=== PATIENT | female | born 1935 | race Caucasian/White ===

== ENCOUNTER → 2017-07-15 10:22 | Outpatient (CLI) | payer MEDICARE, SELFPAY ==
[2017-06-04 11:12] VITALS: BMI 34.2
[2017-06-04 12:47] VITALS: BP 158/60
--- NOTE | 2017-07-15 10:24 | RAD_ITS ---
STUDY: X-RAY - LEFT WRIST REASON FOR EXAM: Female, 81 years old. Follow-up for radial fracture. TECHNIQUE: 3 view(s) of the wrist were obtained. COMPARISON: Comparison is made with prior examination dated June 16, 2017. FINDINGS: Healing comminuted fracture of the distal radial metaphysis with extension to the minimal residual dorsal angulation. Avulsion fracture of the ulnar styloid. Normal radiocarpal articulation. Normal distal radioulnar articulation. Normal carpal bones. Normal carpal articulations. There is degenerative arthrosis of the carpometacarpal articulation of the thumb. Normal second through fifth carpometacarpal articulations. Normal visualized metacarpal bones. The soft tissue structures are unremarkable. RAD/Wrist min 3 Views IMPRESSION: Stable examination. Electronically Signed: Magno Eason MD at 14:16 EST Tel [phone], Service support ,
== END ==
PROVIDERS: Family Provider Family Medicine; PCP Family Medicine; Visit Provider Orthopaedic Surgery
DX: S52.602A Unspecified fracture of lower end of left ulna, initial encounter for closed fracture (principal); S52.502A Unspecified fracture of the lower end of left radius, initial encounter for closed fracture; X58.XXXA Exposure to other specified factors, initial encounter
CPT/HCPCS: 73110

== ENCOUNTER → 2017-07-30 14:02 | Outpatient (CLI) | payer MEDICARE, SELFPAY ==
--- NOTE | 2017-07-30 14:04 | RAD_ITS ---
STUDY: X-RAY - LEFT WRIST REASON FOR EXAM: Female, 81 years old. Fracture TECHNIQUE: 3 view(s) of the wrist were obtained. COMPARISON: X-ray 07/15/2017 FINDINGS: Cast is removed. There is healing fracture at the distal radius. This fracture deformity of the ulnar styloid. 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 Osteopenia. No osseous destruction. RAD/Wrist min 3 Views IMPRESSION: Interval cast removal Healing distal radius fracture Electronically Signed: Danie Estrella MD at 11:11 EST Tel , Service support ,
== END ==
PROVIDERS: Family Provider Family Medicine; PCP Family Medicine; Visit Provider Orthopaedic Surgery
DX: S52.502A Unspecified fracture of the lower end of left radius, initial encounter for closed fracture (principal); S52.602A Unspecified fracture of lower end of left ulna, initial encounter for closed fracture; X58.XXXA Exposure to other specified factors, initial encounter
CPT/HCPCS: 73110

== ENCOUNTER → 2017-08-04 11:20 | Outpatient (CLI) | payer MEDICARE, SELFPAY ==
--- NOTE | 2017-08-04 11:24 | HPBD_ITS ---
STUDY: DUAL ENERGY X-RAY ABSORPTIOMETRY / DXA REASON FOR EXAM: Female, 81 years old. The patient is postmenopausal. Loss of height of 3 images. TECHNIQUE: Bone Mineral Density (BMD) measurements of lumbar spine and bilateral hips were obtained. COMPARISON: Comparison is made with prior study dated February 26, 2015. FINDINGS: Lumbar Spine (L1-L4): g/cm2 (1.360) / T-score (1.3) / Z-score (3.2) Findings are suggestive of normal bone density with a low fracture risk. Left Femur Total: g/cm2 (0.842) / T-score (-1.3) / Z-score (0.8) Left Femoral Neck: g/cm2 (0.700) / T-score (-2.4) / Z-score (-0.2) Right Femur Total: g/cm2 (0.823) / T-score (-1.5) / Z-score (0.6) Right Femoral Neck: g/cm2 (0.733) / T-score (-2.2) / Z-score (0.0) The T-Scores on the most recent prior examination were: Lumbar Spine (L1-L4): There has been improvement of bone density since the previous examination. Left Femur Total: which represents a worsening of 3.6%. Right Femur Total: which represents a worsening of 6.4%. HPBD/Dexa Bone Density Study (HP) IMPRESSION: The patient is considered osteopenic as outlined below according to World Abiel Organization (WHO) criteria with a moderate fracture risk. There has been worsening of bone density since the previous examination. Reference Information: The T-score is the number of standard deviations above or below the standard which is normal for young adults at their peak bone mineral density. The World Health Organization (WHO) interprets the T-scores as follows: Above -1 Normal bone density Between -1 and -2.5 Osteopenia Equal to / or below -2.5 Osteoporosis As a practical clinical guideline, osteopenia may be graded as follows: Mild -1 through -1.5 Moderate -1.6 through -2.0 Severe -2.1 through -2.4 The Z-score is the number of standard deviations above or below age-matched controls. A Z-score of less than -1.5 would be considered abnormal. References: 1. NIH Osteoporosis and Related Bone Diseases http://www.osteo.org 2. International Society for Clinical Densitometry http://www.iscd.org 3. National Osteoporosis Foundation http://www.nof.org Electronically Signed: Magno Eason MD at 8:33 EST Tel [phone], Service support ,
== END ==
PROVIDERS: Family Provider Family Medicine; PCP Family Medicine; Visit Provider Family Medicine
DX: M80.00XS Age-related osteoporosis with current pathological fracture, unspecified site, sequela (principal); Z78.0 Asymptomatic menopausal state
CPT/HCPCS: 77080

== ENCOUNTER 2017-09-28 14:00 | Outpatient (RCR) | payer MEDICARE, SELFPAY ==
--- NOTE | 2017-09-28 14:54 | HP.OTDCSUM_ITS ---
HP - OT D/C Summary It has been my pleasure to treat YULIA AKERS under orders from Mark Sandoval DO, for the diagnosis of Left wrist Distal radius fx. for a total of 5 visit(s). Please see the following information for a summary of their discharge status. - Objective Objective/Function: pt demo a increase in left manager trade strength to 35# a increase in from 20# left wist ROM 65/45 pt demo left forearm supination- - Goals Patient Goals: Regain Mobility, Regain Strength, Decrease Pain, Use Hand/Wrist/ Arm Normally Again Goal:: pt will demo a increase in left manager trade strength to 35# or greater to increase pts ind. with BADLS and IADLS by d/c Goal:: Pt will demo a increase in left wrist ROM by 15 degrees to increase pts ind. with BADLS and IADLS by d/c. pt will demo a increase in left forarm supination to 60 degress for pt to perform BADLS at a ind. level by d/c Goal:: pt will report pain no greater than 1/10 with use of left hand with BADLS and IADLS by d/c - Plan Plan: D/C - D/C Information Discharge Comments: pt was seen for 5 visits following a left distal radius fx- ORIF- pt has demo a increase in left wrist ROM to WFL and a increase in functional strength- pt is now IND with all BADLS and IADLS at this time. pt is to cont with HEP and cont with silver sneakers at . If there are questions or concerns regarding this patient's occupational therapy , please fell free to call me at [phone]. Thank you for the referral of this patient. Sincerely, April Fischer, OTR/L, CHT
--- NOTE | 2017-09-28 14:54 | HP.OTEVAL_ITS ---
Patient's Visit Information YULIA AKERS is a 81 year old F, referred to Occupational Therapy by Mark Sandoval DO, with a diagnosis of Left wrist Distal radius fx.. Date of Evaluation: Occupational Therapist: April Fischer, DELTAR/Edinson, CHT - Subjective Subjective: Pt states she is not sure what happened but while she was standing by her dinning table she fell and broke her left wrist- pt went to the ER and was found to be a left distal radius fx. pt is right handed- pt states she was casted for 4 weeks. pt states she is getting better but she is having pain at the base of her fingers - Pain left wrist 0 Pain Intensity Range: 0, 3 - ROM Forearm: RIGHT sup 65 LEFT Nutral Wrist: RIGHT 55/45 LEFT 60/35 - Strength Utility Worker Film Processing: right 45# left 20# Lateral Pinch: right 8# left 4# Tripod Pinch: rigth 4# left unable left thumb pain - Hand/Wrist Evaluation Total Score of Pain & Functional Sections: 5 - Goals Goal:: pt will demo a increase in left acetone recovery worker strength to 35# or greater to increase pts ind. with BADLS and IADLS by d/c Goal:: Pt will demo a increase in left wrist ROM by 15 degrees to increase pts ind. with BADLS and IADLS by d/c. pt will demo a increase in left forarm supination to 60 degress for pt to perform BADLS at a ind. level by d/c Goal:: pt will report pain no greater than 1/10 with use of left hand with BADLS and IADLS by d/c - Rehabilitation General Assessment: pt demo with a decreased left wrist functional ROM and limited left forearm supination- pt demo weak left acetone recovery worker decreasing pts ind. with BADLs and IADLs. Rehabilitation Potential: Good - Anticipated Interventions Anticipated Interventions: A/AAROM/PROM, Strengthening, Triggerpoint Release, Modalities - Visit Plan Frequency: 1-2x /Week Duration: 4 Weeks General Plan: pt will initiate OT sessions 2xweek for 4 weeks to increase her left wrist and left forearm supination - and then progress pt to PRE to return her to a PLOF TEXT: Thank you for the opportunity to evaluate your patient. For Medicare and Medicare HMO plans, please review the plan of care and approve it. It will need to be FAXED BACK to us at [phone] for Medicare purposes. Please let me know if there are questions or concerns regarding this plan of care. Physician Signature: Date:
== END 2017-09-28 19:00 | disposition home or self-care (01) ==
LOC: OT 14:00
PROVIDERS: Family Provider Family Medicine; PCP Family Medicine; Visit Provider Orthopaedic Surgery
DX: S52.502D Unspecified fracture of the lower end of left radius, subsequent encounter for closed fracture with routine healing (principal)
CPT/HCPCS: 97110; 97140; 97166; 97168

== ENCOUNTER → 2017-10-15 09:49 | Outpatient (CLI) | payer MEDICARE, SELFPAY ==
--- NOTE | 2017-10-15 09:51 | RAD_ITS ---
STUDY: X-RAY - RIGHT KNEE REASON FOR EXAM: Female, 81 years old. Postop knee replacement TECHNIQUE: 4 view(s) of the knee. COMPARISON: None. FINDINGS: Normal visualized distal femur. Normal visualized proximal tibia and fibula. Normal proximal tibiofibular articulation. There is no demonstrated fracture. Satisfactory appearance of total knee arthroplasty, with normal femoral and tibial components. No evidence for postoperative complication. There has been resurfacing of the patella. The soft tissue structures are unremarkable. RAD/Knee 4 or More Views IMPRESSION: No acute abnormality. Satisfactory appearance of a total knee arthroplasty. Electronically Signed: Sandip Shine MD at 17:03 EDT , Service support ,
== END ==
PROVIDERS: Family Provider Family Medicine; PCP Family Medicine; Visit Provider Orthopaedic Surgery
DX: M17.11 Unilateral primary osteoarthritis, right knee (principal)
CPT/HCPCS: 73564

== ENCOUNTER → 2018-03-02 09:49 | Outpatient (CLI) | payer MEDICARE, SELFPAY ==
--- NOTE | 2018-03-02 09:52 | BI_ITS ---
MAMMOGRAPHY - BILATERAL SCREENING REASON FOR EXAM: Female, 82 years old. Routine annual screening examination. PERTINENT HISTORY: Personal history of breast cancer. Prior left lumpectomy. Prior left stereotactic breast biopsy. TECHNIQUE: Digital bilateral breast holly (3D mammographic acquisition) in the CC and MLO projections. 2-D mediolateral oblique (MLO) and craniocaudad (CC) views of both breasts were obtained. CAD: Full Field Digital Mammography with Computer Added Detection was performed. COMPARISON: Comparison is made with prior study dated March 01, 2017 and February 28, 2016. FINDINGS: Breast Composition: There are scattered areas of fibroglandular density. There are no dominant masses or suspicious calcifications. The patient is status post left lumpectomy with resultant postoperative architectural distortion in the superior lateral retroareolar region of the left breast. Surgical clips are seen in the left axilla. There now is evidence of a 1.9 cm dense lymph node in the right axillary region. Clinical correlation is recommended. No other significant abnormalities are identified. BI/SCREENING MAMM (CAD), BILAT IMPRESSION: Stable bilateral screening mammogram. Yearly follow-up mammogram recommended. (A) ASSESSMENT CATEGORY: BIRADS Category 2: Benign. A letter regarding these results will be sent to the patient by the facility within 30 days. Approximately 10% of breast cancers are not detected by mammography. A normal mammogram should not delay biopsy of a clinically suspicious abnormality. [id number] Electronically Signed: Magno Eason MD at 10:59 EDT Tel [phone], Service support ,
== END ==
PROVIDERS: Family Provider Family Medicine; PCP Family Medicine; Visit Provider Nurse Practitioner
DX: Z12.31 Encounter for screening mammogram for malignant neoplasm of breast (principal); D05.12 Intraductal carcinoma in situ of left breast
CPT/HCPCS: 77063; 77067

== ENCOUNTER 2018-06-01 15:45 | Emergency (ER) | payer MEDICARE, SELFPAY ==
[2018-06-01 15:47] VITALS: BP 159/79; PULSE 83; RESP 18; TEMP 36.3; O2SAT 99; BMI 40.7
--- NOTE | 2018-06-01 16:23 | ED.VISSUMM ---
- ER Visit Summary Date of Service: 06/01/18 Chief Complaint: Nosebleed History of Present Illness: The patient is a 82 F presents for 1 hour of nosebleed. Patient had a similar episode 4 days ago, with bleeding from her right nostril that resolved spontaneously. Onset was after she blew her nose. Patient blew her nose this afternoon began having bleeding again. Any history of bleeding disorder or being on blood thinners, including aspirin. No other trauma other than blowing her nose. Patient denies nausea. She does have some blood in the oropharynx that requires spitting out. Physical Examination: Vital signs: afebrile, hemodynamically stable, no hypoxia on room air General: well nourished, well developed, in no distress Skin: warm, dry, no rash, no pallor HEENT: normocephalic and atraumatic; PERRL, EOMI, moist mucous membranes, dried blood around the mouth, small amount on the hard palate, no active bleeding in the posterior oropharynx, dried blood noted around the right external naris, no active bleeding in the internal nares, including the septum, limited range of motion of the neck secondary to chronic medical condition Cardiovascular: regular rate and rhythm Respiratory: No increased work of breathing MSK: Moves all extremities, no deformities, normal strength Neuro: Awake and alert, oriented ?4. No facial droop, sensation and motor function intact and symmetric Test Results: None indicated Emergency Department Course and Treatment: Patient had no bleeding on initial examination. While talking to her, she had a very brief single spurt of blood come out of the right naris, with no source noted on reexamination. She then had another very small amount of blood drain out of the nose and also into the oropharynx, which she spit out. Patient still had no active bleeding noted in the anterior naris, including Keisselbachs plexus, however there was no bleeding at all noted in the posterior region of the anterior nasal septum. Patient had no further bleeding after a long period of observation, however family was concerned that the bleeding would occur again. The patient lives alone. We discussed the possibilities of observation versus packing. They opted for packing. Patient's right naris was once again evaluated, and there was some diffuse hyperemia with no single source of bleeding identified. Merocel was placed after instillation of afrin and zay's solution in right naris. Patient was observed and had no further bleeding. She is to have the packing removed in 2-3 days. She was placed on Augmentin for prophylaxis since she is diabetic. She is to return if bleeding resumes. Discharged home in stable condition. Treatment Plan: [] Disposition: [] Impression: Right epistaxis, status post nasal packing This note was generated with [employer] dictation software. It may contain incorrect words, spelling, and punctuation that were not noted in review of the chart prior to signing ED Disposition - Plan for ED Patient: Disposition: Home or Assisted Living Chief Complaint: Nosebleed Instructions: Nosebleed Prescriptions: Amoxicillin/Potassium Clav [Augmentin 875-125 Tablet] 1 tab PO BID #10 tab Referrals: Kasi Black III, MD [Primary Care Provider] - 2 Days Brent Merrill MD [STAFF PHYSICIAN] - 2 Days for wound check Additional Instructions: Follow-up with your doctor, an ENT specialist, or return to the emergency department for reevaluation and removal of the packing in 2-3 days. You are unable to get an appointment in 2-3 days and do not return to the emergency department. Gently remove the packing by herself in 3 days. If at any point you have return of the bleeding you cannot control with pressure to the nostrils after 20 minutes, return to the emergency department for another evaluation. Do not blow your nose, rub your nose, put anything up your nose, or bend over with your head below your waist to prevent increased risk of rebleeding. Take the antibiotic to help prevent infection. If you have any worsening of your condition or any new concerning symptoms, please return immediately to the emergency department for another evaluation.
--- NOTE | 2018-06-01 18:50 | ED.DEP ---
ED Disposition - Plan for ED Patient: Disposition: Home or Assisted Living Chief Complaint: Nosebleed Instructions: Nosebleed Prescriptions: Amoxicillin/Potassium Clav [Augmentin 875-125 Tablet] 1 tab PO BID #10 tab Referrals: Kasi Black III, MD [Primary Care Provider] - 2 Days Brent Merrill MD [STAFF PHYSICIAN] - 2 Days for wound check Additional Instructions: Follow-up with your doctor, an ENT specialist, or return to the emergency department for reevaluation and removal of the packing in 2-3 days. You are unable to get an appointment in 2-3 days and do not return to the emergency department. Gently remove the packing by herself in 3 days. If at any point you have return of the bleeding you cannot control with pressure to the nostrils after 20 minutes, return to the emergency department for another evaluation. Do not blow your nose, rub your nose, put anything up your nose, or bend over with your head below your waist to prevent increased risk of rebleeding. Take the antibiotic to help prevent infection. If you have any worsening of your condition or any new concerning symptoms, please return immediately to the emergency department for another evaluation.
[2018-06-01] MEDS: Oxymetazoline 0.05% 1 SPRAY SPRAY.BTL NASAL (18:55)
[2018-06-01] MEDS: Mixture 30 ML Bottle 5 ML TOPICAL (18:56)
== END 2018-06-01 19:06 | disposition home or self-care (01) ==
PROVIDERS: Emergency Provider Emergency Medicine; Family Provider Family Medicine; PCP Family Medicine
DX: R04.0 Epistaxis (principal)
CPT/HCPCS: 30901; 99283; J7030; A4216

== ENCOUNTER 2018-12-30 13:00 | Outpatient (RCR) | payer MEDICARE, SELFPAY ==
--- NOTE | 2018-10-06 13:15 | HP.PTEVAL_ITS ---
Patient's Visit Information YULIA AKERS is a 82 year old F referred to Physical Therapy by Kasi Black III, MD with a diagnosis of neck pain. Date of Evaluation: 10/06/18 Physical Therapist: Codey Adrian PT, ATC - Visit Plan Frequency: 2x /Week Duration: 4 Weeks Plan: Postural edu, PROM/mobs to C/s, DTR, manual traction, scap stab ex's, UBE, and HEP - Subjective Findings: Pt reports her neck has been sore for several months. Pt reports she had been seeing a chiropractor over this time period, but she wasnt really getting any better. Pt reports no sleep difficulty secondary to pain. Pt reports no tingling or numbness in her UE's at this time. Pt reports she knows she has bad posture, but she feels better when her head is facing downwards. Pt reports she has had recent xrays from her chiropractor, but she cant remember what the results were. Pt reports she is unable to drove a car right now secondary to not being able to rotate her head to the right or the left side. pt reports she has been getting a weekly message for her pain. 0/10 pain currently, 5/10 when she attempts to look straight ahead. - Pain neck Pain Intensity (Out of 10): 0 Pain Intensity Range: 5 - Objective Neuro: B UE sensation is WNL to light touch. B bicepital reflex= 2/3. MMT: B UE's are grossly rated at 5/5 throughout. ROM: Pt is moderately limited in all motions with the exception of extension and retraction which are severely limited. Special tests: pos distraction test. Palpation: significant guarding throughout c/s this date - Goals Goal 1:: Decrease c/s pain x 50% to aid with IADL's Goal Time Frame: 4-6 Weeks Goal 2:: Increase cervical spine ext ROM x 1 grade to aid with ambulation Goal Time Frame: 4-6 Weeks Goal 3:: Decrease guarding in C/S x 1 grade to aid with decreasing pain Goal Time Frame: 4-6 Weeks Goal 4:: I with HEP Goal Time Frame: 4-6 Weeks - Rehabilitation Potential Physical Therapy Diagnosis: pt has cervical spine pain, limited ROM, and poor posture secondary to deg changes in her c/s Rehabilitation Potential: Good - Anticipated Interventions Patient/Client Instruction: Educate patient on: Condition, Plan of Care For the Purpose of:: To improve self management Therapeutic Exercise to Include: Strength training, Postural training, Flexibilty training, Passive ROM, Active ROM, Scapular Strength/Stabilization For the Purpose of:: To decrease pain, To increase ROM, To improve muscle performance and motor function Thermo therapy (hot pack): Yes Ultrasound (thermal/non thermal): Yes For the Purpose of:: To decrease pain Thank you for the opportunity to evaluate your patient. For Medicare and Medicare HMO plans, please review the plan of care and approve it. It will need to be FAXED BACK to us at [phone] for Medicare purposes. For Medicare only, by signing this I certify the plan of care. Please let me know if there are questions or concerns regarding this plan of care. Physician Signature: Date:_
--- NOTE | 2018-11-15 11:16 | HP.PTREVAL ---
Kasi Black III, MD, It has been my pleasure to treat YULIA AKERS over the last 10 visits for neck pain. Please see the progress note below for an update on the physical therapy plan of care! Subjective: Neck pain is about the same from having to hold her head up Objective/Function: Pain ranges from 2-3/10. Ext ROM has improved to neutral spine posture. Guarding has imporved minimally at this time. Pt is progressing well toward Rx goals Plan Plan: Continue with scap stab ex's, UBE, and HEP Goals Goal 1:: Decrease c/s pain x 50% to aid with IADL's Goal Time Frame: 4-6 Weeks Goal Progress: Progressing Goal 2:: Increase cervical spine ext ROM x 1 grade to aid with ambulation Goal Time Frame: 4-6 Weeks Goal Progress: Progressing Goal 3:: Decrease guarding in C/S x 1 grade to aid with decreasing pain Goal Time Frame: 4-6 Weeks Goal Progress: Progressing Goal 4:: I with HEP Goal Time Frame: 4-6 Weeks Goal Progress: Progressing Anticipated Interventions Patient/Client Instruction: Educate patient on: Condition, Plan of Care For the Purpose of:: To improve self management Therapeutic Exercise to Include: Strength training, Postural training, Flexibilty training, Passive ROM, Active ROM, Scapular Strength/Stabilization For the Purpose of:: To decrease pain, To increase ROM, To improve muscle performance and motor function Thermo therapy (hot pack): Yes Ultrasound (thermal/non thermal): Yes For the Purpose of:: To decrease pain Please do not hesitate to contact me at [phone] by phone or if you have questions or concerns regarding this new plan of care! Sincerely, Codey Adrian, PT, ATC
--- NOTE | 2018-12-30 14:00 | HP.PTDCSUM ---
HP - PT D/C Summary It has been my pleasure to treat YULIA AKERS under orders from Kasi Black III, MD, for the diagnosis of neck pain for a total of 17 visit(s). Discharge Date: Please see the following information for a summary of their discharge status. - Subjective Subjective: Pt reports minimal shoulder pain this date - Pain neck Pain Intensity (Out of 10): 2 - Overall Improvement % Improvement: 30 - Objective Objective/Function: cervical spine ROM is relatively unchanged. Pain has decreased overall /10. Pt is I with HEP - Goals Goal 1:: Decrease c/s pain x 50% to aid with IADL's Goal Progress: Progressing Goal 2:: Increase cervical spine ext ROM x 1 grade to aid with ambulation Goal Progress: Progressing Goal 3:: Decrease guarding in C/S x 1 grade to aid with decreasing pain Goal Progress: Not Progressing Goal 4:: I with HEP Goal Progress: Goal Met - Plan Plan: Discontinue to HEP - D/C Information If there are questions or concerns regarding this patient's physical therapy, please feel free to call me at [phone]. Thank you for the referral of this patient. Sincerely, Codey Adrian, PT, ATC
== END 2018-12-30 15:23 | disposition home or self-care (01) ==
LOC: PT 13:00
PROVIDERS: Family Provider Family Medicine; PCP Family Medicine; Visit Provider Family Medicine
DX: M47.812 Spondylosis without myelopathy or radiculopathy, cervical region (principal); M40.202 Unspecified kyphosis, cervical region
CPT/HCPCS: 97110; 97140; 97161; 97530

== ENCOUNTER 2019-02-06 10:03 | Observation (INO) | payer MEDICARE, SELFPAY ==
[2019-02-06 10:04] VITALS: BP 151/67; PULSE 68; RESP 16; TEMP 36.6; O2SAT 96; BMI 31.8
--- NOTE | 2019-02-06 10:40 | ED.VISSUMM ---
- ER Visit Summary Date of Service: 02/06/19 Chief Complaint: Leg swelling. History of Present Illness: The patient is a 83 F history of chronic leg swelling, diet-controlled diabetes, osteoarthritis and anemia. Patient had a recent fall so stopped taking her Lasix which controlled her chronic leg swelling. She did not want to take the Lasix to the mid to go the bathroom and she was scared to keep walking the bathroom to have more falls. She developed more swelling in her legs and blistering of the skin with skin breakdown. They were concerned there was an infection she was seen at the [facility] urgent care and started on Keflex last week. She denies any fever or chills. Family thinks that she needs to be placed in a nursing facility. Physical Examination: Female no acute distress. Vital signs are stable and afebrile. H EENT exam unremarkable. Neck nontender. Lungs are clear to auscultation bilaterally. Heart regular rhythm no murmur. Abdomen is soft and nontender. Extremities moves all 4. Neurovascular intact. Both lower extremities have plus edema. She has vesicles on the skin they broken down. There is minimal redness on the right anterior lower leg. The posterior left calf has some breakdown the skin. But no infection. Both feet are neurovascular intact with dorsi plantarflexion. Touch sensation and pulses. Neurologically he is awake and alert. Test Results: CBC shows no acute abnormality. Hemoglobin 13. White count of 8. Chemistries show potassium of 2.7. Normal creatinine and gap. Emergency Department Course and Treatment: Treated with oral potassium Treatment Plan: Patient will be admitted for failure to thrive. Already spoken to the hospitalist. Disposition: Admission Impression: Failure to thrive Acute on chronic lower extremity edema Hypokalemia This note was generated with [employer] dictation software. It may contain incorrect words, spelling, and punctuation that were not noted in review of the chart prior to signing ED Disposition - Plan for ED Patient: Referrals: Kasi Black III, MD [Primary Care Provider] -
[2019-02-06 11:21] LABS: Absolute Lymphocyte Count 1.38 X10^3/uL (0.83-4.51); Absolute Neutrophil Count 5.9 X10^3/uL (2.0-7.7); Basophil# 0.04 X10^3/uL; Basophil% 0.5 % (0-1); Eosinophil# 0.37 X10^3/uL; Eosinophils% 4.3 % (0-5); Hematocrit 39.7 % (37-47); Hemoglobin 13.8 g/dL (12.0-15.0); Lymphocyte # 1.38 X10^3/ul (4.0); Lymphocyte % 16.1 % (19-41); Mean Corp Hgb Conc 34.8 g/dL (32-36); Mean Corpuscular Hgb 34.2 pg (27.0-32.0); Mean Corpuscular Volume 98.3 fL (81-99); Mean Platelet Vol. 11.4 fl (6.2-12.0); Monocyte# 0.86 X10^3/uL; NRBC Flagged by Analyzer 0 % (0-5); Neutrophil # 5.87 X10^3/uL (2.7-7.7); Neutrophil % 68.6 % (47-70); Platelet Count 177 K/mm3 (150-450); RBC Distribution Width CV 12.7 % (11.6-14.6); RBC Distribution Width SD 45.9 fl (35.1-43.9); Red Blood Count 4.04 M/mm3 (4.2-5.4); White Blood Count 8.6 K/mm3 (4.4-11.0)
[2019-02-06 11:38] LABS: Anion Gap 6 (5-15); BUN 19 mg/dL (7-18); BUN/Creat Ratio 18.1 RATIO (10-20); Chloride 103 mmol/L (98-107); Creatinine, Serum 1.05 mg/dL (0.55-1.02); EST Glomerular Filtration Rate 53 mL/min (>60); Est Glom Filt Rate - Afr Amer 64 mL/min (>60); Estimated Creatinine Clearance 33.58 ml/min; Glucose 256 mg/dL (74-106); Potassium 2.7 mmol/L (3.5-5.1); Sodium Level 143 mmol/L (136-145)
[2019-02-06 12:23] VITALS: BP 153/66; PULSE 63; PULSE 66; RESP 16; O2SAT 97
[2019-02-06 13:38] VITALS: BMI 33.1
[2019-02-06 13:39] VITALS: BP 132/58; PULSE 56; RESP 16; TEMP 37.1; O2SAT 98
[2019-02-06] MEDS: Furosemide 20 MG/2 ML VIAL IV ×2 (15:53→22:35)
[2019-02-06] MEDS: 0.9% NaCl Peripheral Flush Adult/Peds IV ×2 (16:00→22:35)
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
[2019-02-06 16:50] LABS: Bedside Glucose 188 mg/dL (70-110)
[2019-02-06] MEDS: Glucerna Shake 120 ML LIQUID PO ×2 (17:22→22:35)
[2019-02-06] MEDS: Insulin Lispro 100 UNIT/ML INSULN.PEN SC ×2 (17:22→22:35)
[2019-02-06 19:59] VITALS: BP 146/60; PULSE 68; RESP 18; TEMP 36.9; O2SAT 94
--- NOTE | 2019-02-06 20:20 | NURSING ---
Pt's brother, Gamal Prabhakar, at desk wanting to address some concerns about pt's home situation and possibility for placement. Pt lives home alone and sits in her recliner most of the time, attempts to get to the restroom when she can, but typically is incontinent. Pt has macular degeneration making it difficult for her to prepare meals for herself. Per Mr. Prabhakar, pt has memory issues. Pt's brother wondering if pt could be placed somewhere to assist with ADL's. Made brother aware that the social workers and case specialist will be working with pt and family addressing these concerns.
[2019-02-06] MEDS: Acetaminophen 325 MG Tablet 650 MG PO (22:35)
[2019-02-06 22:46] LABS: Bedside Glucose 198 mg/dL (70-110)
[2019-02-06] MEDS: Donepezil HCl 5 MG Tablet PO (22:57)
[2019-02-07 02:00] VITALS: BP 128/60; PULSE 66; RESP 16; TEMP 36.8; O2SAT 93
[2019-02-07 06:06] LABS: Anion Gap 7 (5-15); BUN 14 mg/dL (7-18); BUN/Creat Ratio 14.5 RATIO (10-20); Calcium,Total 9.1 mg/dL (8.5-10.1); Chloride 103 mmol/L (98-107); Creatinine, Serum 0.97 mg/dL (0.55-1.02); EST Glomerular Filtration Rate 59 mL/min (>60); Est Glom Filt Rate - Afr Amer 71 mL/min (>60); Estimated Creatinine Clearance 34.76 ml/min; Glucose 201 mg/dL (74-106); Potassium 2.9 mmol/L (3.5-5.1); Sodium Level 145 mmol/L (136-145)
[2019-02-07] MEDS: Insulin Lispro 100 UNIT/ML INSULN.PEN SC ×4 (06:46→22:24)
[2019-02-07] MEDS: Furosemide 20 MG/2 ML VIAL IV ×3 (06:46→22:25)
[2019-02-07] MEDS: 0.9% NaCl Peripheral Flush Adult/Peds IV ×2 (06:47→20:07)
[2019-02-07 07:05] LABS: Bedside Glucose 202 mg/dL (70-110)
[2019-02-07 07:47] VITALS: BP 140/69; PULSE 62; RESP 16; TEMP 37.1; O2SAT 92
--- NOTE | 2019-02-07 08:47 | NURSING ---
wound photo: right lower leg
--- NOTE | 2019-02-07 08:48 | NURSING ---
wound photo: left posterolateral lower leg
--- NOTE | 2019-02-07 10:09 | OT ---
SLOW TO RESPOND, QUESTIONABLE COMPREHENSION, WILL NEED REINFORCED
[2019-02-07] MEDS: Propranolol LA 80 MG Capsule PO (10:21)
[2019-02-07] MEDS: Citalopram 20 MG Tablet PO (10:22)
[2019-02-07] MEDS: Ramipril 10 MG Capsule PO (10:22)
[2019-02-07] MEDS: amLODIPine 5 MG Tablet PO (10:22)
[2019-02-07] MEDS: Glucerna Shake 120 ML LIQUID PO ×4 (10:24→22:24)
[2019-02-07 11:41] LABS: Bedside Glucose 212 mg/dL (70-110)
--- NOTE | 2019-02-07 13:46 | CASEMGMT ---
Social Work Assessment Referral Date: 02/07/2019 Date of Assessment: 02/07/2019 Reason for consult: SNF placement Informant: Personal Status: SW met with pt to complete initial assessment. Pt is alert and orientated x3. Pt states that she lives alone in a two story home with one floor set up. Pt states that she was previously independent with ALDs. DME include cane and walker and pharmacy is [facility]. Pt's PCP is Dr. Black. Substance Abuse Hx: Pt denied Mental Health Hx: Pt states that she had light depression when her . Pt states that she was on medications for a little bit after her passed but denied currently talking medications. SW offered support to pt. Pt states that her depression is now managed and denied wanting counseling resources. SW informed pt that PT/OT are recommending SNF for pt. Pt states that she has been to [facility] to visit her and would like a referral sent to [facility]. SW provided pt with list of SNF that accept pt's insurance. Pt still states she would like referral sent to [facility]. SW explained referral process and that pt will need pre-cert. Pt states understanding. SW faxed referral to [facility]. Plan: [facility] pending acceptance and pre-cert Naila Bryan REFUELING RAMP ATTENDANT, SAP BW ARCHITECT
[2019-02-07 14:29] VITALS: BP 130/53; PULSE 70; RESP 16; TEMP 36.7; O2SAT 92
--- NOTE | 2019-02-07 16:18 | CASEMGMT ---
CJ LEÓN completed and reviewed BERNAL form with patient. Patient voiced understanding and all questions were answered. CJ LEÓN provided copy of BERNAL for to patient. Original signed BERNAL form filed in chart.
[2019-02-07 16:36] LABS: Bedside Glucose 207 mg/dL (70-110)
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
[2019-02-07] MEDS: Acetaminophen 325 MG Tablet 650 MG PO (20:07)
[2019-02-07 20:20] VITALS: BP 146/55; PULSE 65; RESP 18; TEMP 36.4; O2SAT 96
[2019-02-07] MEDS: Donepezil HCl 5 MG Tablet PO (22:24)
[2019-02-07 22:36] LABS: Bedside Glucose 183 mg/dL (70-110)
[2019-02-08 02:10] VITALS: BP 157/51; PULSE 60; RESP 18; TEMP 37.1; O2SAT 94
[2019-02-08] MEDS: Furosemide 20 MG/2 ML VIAL IV ×3 (06:25→22:06)
[2019-02-08] MEDS: 0.9% NaCl Peripheral Flush Adult/Peds IV (06:25)
[2019-02-08] MEDS: Insulin Lispro 100 UNIT/ML INSULN.PEN SC ×4 (06:25→22:22)
[2019-02-08 06:35] LABS: Bedside Glucose 231 mg/dL (70-110)
[2019-02-08 07:02] LABS: Anion Gap 5 (5-15); BUN 12 mg/dL (7-18); BUN/Creat Ratio 14.5 RATIO (10-20); Calcium,Total 9.5 mg/dL (8.5-10.1); Chloride 102 mmol/L (98-107); Creatinine, Serum 0.83 mg/dL (0.55-1.02); EST Glomerular Filtration Rate 70 mL/min (>60); Est Glom Filt Rate - Afr Amer 84 mL/min (>60); Estimated Creatinine Clearance 40.62 ml/min; Glucose 226 mg/dL (74-106); Potassium 3.3 mmol/L (3.5-5.1); Sodium Level 141 mmol/L (136-145)
[2019-02-08 07:31] VITALS: BP 131/65; PULSE 66; RESP 16; TEMP 36.4; O2SAT 94
[2019-02-08] MEDS: Ramipril 10 MG Capsule PO (08:52)
[2019-02-08] MEDS: Propranolol LA 80 MG Capsule PO (08:52)
[2019-02-08] MEDS: amLODIPine 5 MG Tablet PO (08:52)
[2019-02-08] MEDS: Citalopram 20 MG Tablet PO (08:53)
[2019-02-08] MEDS: Glucerna Shake 120 ML LIQUID PO ×4 (08:56→22:14)
[2019-02-08 11:16] LABS: Bedside Glucose 231 mg/dL (70-110)
[2019-02-08 14:10] VITALS: BP 147/71; PULSE 73; RESP 16; TEMP 36.4; O2SAT 94
--- NOTE | 2019-02-08 14:26 | CASEMGMT ---
Social Work Note LUANN received message from Cece at [facility] stating they are not in network with pt's insurance. SW in to update pt on this. LUANN provided pt with another list of SNF in network with pt's insurance. Pt agreeable to [facility]. LUANN explained referral process and that pre-cert will be needed. Pt states understanding. LUANN spoke with Flory with TCU who is able to accept pt and will submit for pre-cert. LUANN received call from pt's brother Gamal asking for update. LUANN explained that pt is agreeable to SNF and [facility] was first choice but [facility] is not in network with pt's insurance. LUANN explained that pt selected TCU as next choice and TCU is able to accept pt pending pre-cert. Gamal states that pt will likely need usp placement. LUANN explained that at this time pt is agreeable to short term rehab and selected [facility]CU as next choice since [facility] is not in network with pt's insurance and pt would have a copay if she went to [facility]. LUANN explained that once pt is on TCU there will be a social services technician available to assist with discharge planning. LUANN also explained that there will be weekly care plan meetings that family can be involved in as well. LUANN provided this worker's direct number and TCU SW number as well. Gamal thanked this worker. RN Jenae updated pt on acceptance to TCU pending pre-cert. Plan: TCU pending pre-cert Naila Bryan RUG BACKING STENCILER, INFORMATION SYSTEMS SECURITY SPECIALIST
[2019-02-08 16:15] LABS: Bedside Glucose 217 mg/dL (70-110)
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
[2019-02-08 20:00] VITALS: RESP 16
[2019-02-08 20:12] VITALS: BP 145/65; PULSE 56; RESP 16; TEMP 36.6; O2SAT 95
[2019-02-08] MEDS: Donepezil HCl 10 MG Tablet PO (22:14)
[2019-02-09 00:11] LABS: Bedside Glucose 185 mg/dL (70-110)
[2019-02-09 02:15] VITALS: BP 139/57; PULSE 58; RESP 16; TEMP 36.5; O2SAT 94
[2019-02-09 06:13] LABS: Anion Gap 7 (5-15); BUN 13 mg/dL (7-18); BUN/Creat Ratio 14.2 RATIO (10-20); Calcium,Total 9.5 mg/dL (8.5-10.1); Chloride 102 mmol/L (98-107); Creatinine, Serum 0.91 mg/dL (0.55-1.02); EST Glomerular Filtration Rate 62 mL/min (>60); Est Glom Filt Rate - Afr Amer 76 mL/min (>60); Estimated Creatinine Clearance 37.05 ml/min; Glucose 229 mg/dL (74-106); Potassium 3.8 mmol/L (3.5-5.1); Sodium Level 141 mmol/L (136-145)
[2019-02-09] MEDS: Furosemide 20 MG/2 ML VIAL IV ×2 (06:45→14:24)
[2019-02-09] MEDS: Insulin Lispro 100 UNIT/ML INSULN.PEN SC ×3 (06:53→16:53)
[2019-02-09 08:06] LABS: Bedside Glucose 244 mg/dL (70-110)
[2019-02-09] MEDS: Citalopram 20 MG Tablet PO (08:47)
[2019-02-09] MEDS: Ramipril 10 MG Capsule PO (08:48)
[2019-02-09] MEDS: amLODIPine 5 MG Tablet PO (08:48)
[2019-02-09] MEDS: Propranolol LA 80 MG Capsule PO (08:49)
[2019-02-09] MEDS: Glucerna Shake 120 ML LIQUID PO ×2 (08:52→16:50)
[2019-02-09 08:55] VITALS: BP 131/65; PULSE 68; RESP 18; TEMP 36.3; O2SAT 97
--- NOTE | 2019-02-09 13:27 | CASEMGMT ---
Addendum entered by Naila Bryan 02/09/19 14:15: SW updated pt on approval to go to TCU. Pt asked about going to 4th floor. SW explained that pt's insurance won't approve for pt to go to [facility] but they did approve for [facility]CU. Pt states understanding. SW placed a call to pt's brother Gamal and updated him on approval to go to TCU and that pt will be discharged to TCU today. Gamal states understanding. Plan: TCU today Original Note: Social Work Note SW received call from Flory with TCU stating pt has been approved for TCU. Physician updated. Plan: TCU today Naila Bryan MODELING TEACHER, DIRECT SUPPORT PROFESSIONAL
[2019-02-09 14:19] VITALS: BP 132/61; PULSE 61; RESP 18; TEMP 36.6; O2SAT 96
[2019-02-09] MEDS: 0.9% NaCl Peripheral Flush Adult/Peds IV (14:23)
[2019-02-09 14:40] LABS: Bedside Glucose 338 mg/dL (70-110)
[2019-02-09 17:00] LABS: Bedside Glucose 172 mg/dL (70-110)
--- NOTE | 2019-02-09 18:40 | PCM.TXEXTCAR ---
- Diet 02/06/19 15:11 Diet: Calorie Controlled Food consistency:: Regular Liquid Consistency:: Regular/Thin How many daily calories?: 1800 calorie - Routine Orders/Code Status Routine Lab Work: - - Fingerstick blood sugars ACQHS-Humalog SQ per protocol: 200-250: 5 units SQ, 251-300: 8 units SQ, 301-350: 12 units SQ - Wound(s) Right leg Wound Type: Stasis Ulcer Dressing Change: Adaptic Left leg Wound Type: blisters left lateral lower leg Wound Type: cluster of small stasis ulcers Dressing Change: Adaptic - Therapies Weight Bearing: Full weight bearing Physical Therapy: Eval and Treat Occupational Therapy: Eval and Treat - Problem/Diagnosis (1) Debility Status: Acute Current Visit: Yes (2) Bilateral lower extremity edema Status: Acute Current Visit: Yes (3) Diabetes mellitus, type 2 Status: Chronic Current Visit: No (4) GERD (gastroesophageal reflux disease) Status: Chronic Current Visit: No (5) HTN (hypertension) Status: Chronic Current Visit: No (6) Osteoarthritis Status: Chronic Current Visit: No (7) Lymphedema Status: Chronic Current Visit: Yes (8) Cognitive impairment Status: Chronic Current Visit: Yes (9) Hypokalemia Status: Acute Current Visit: Yes - Allergies/Procedures Done in Hospital Allergies/Adverse Reactions: Allergies atorvastatin [From Lipitor] Adverse Reaction (Verified 02/06/19 21:21) myalgia metformin Adverse Reaction (Verified 02/06/19 21:21) Diarrhea nitrofurantoin [From Macrobid] Adverse Reaction (Verified 02/06/19 14:11) Other Headaches years ago nitrofurantoin macrocrystalline [From Macrobid] Adverse Reaction (Verified 02/06/19 21:21) headache quinine Adverse Reaction (Verified 02/06/19 21:21) Unknown Sulfa (Sulfonamide Antibiotics) Adverse Reaction (Verified 02/06/19 21:21) headaches Procedures: None - Type of Care/Length of Stay Estimated LOS: Convalescent Care Less Than 30 days Type of Care Needed: Skilled Rehab Potential: Fair Prognosis: Fair - Additional Orders/Day of Discharge H&P will serve as current which was dated: 02/06/19 Day of Discharge: 02/09/19 - Dietary and Speech Recommendations Dietitian Recommendations/Changes: Continue Glucerna Shake on medpass as ordered. - Follow Up Care Primary Care Physician: Kasi Black III, MD [Primary Care Provider] -
--- NOTE | 2019-02-09 19:04 | NURSING ---
called report to Tristen in TCU.
[2019-02-09 19:45] VITALS: BP 128/51; PULSE 60; RESP 18; TEMP 36.9; O2SAT 94
--- NOTE | 2019-02-10 08:54 | DS.PCM_ITS ---
Discharge Date and Diagnosis - Problem List Patient Problems: Active and Suspected Problems (Last Reviewed 10/15/17 @ 09:54 by Jaleel Burciaga) Failure to thrive (Acute) Date of Admission: 02/06/19 Date of Discharge: 02/09/19 - Primary Discharge Diagnosis Active and Suspected Problems (Last Reviewed 10/15/17 @ 09:54 by Jaleel Burciaga) #1 generalized debility secondary to multiple medical problems- #2 hypokalemia #3 lower leg edema on a backdrop of chronic lymphedema of the legs #4 superficial abrasions to patient's lower legs possibly from superficial blister formation of the skin-secondary to debility and chronic edema #5 osteoarthritis #6 hypertension #7 type 2 diabetes #8 cognitive impairment-moderate in nature #9 chronic depression #10 chronic lymphedema of the legs #11 osteoporosis #12 noncompliance with medical regimen secondary to cognitive impairment - Secondary Discharge Diagnosis Chronic Problems (Last Reviewed 10/15/17 @ 09:54 by Jaleel Burciaga) Lymphedema (Chronic) Cognitive impairment (Chronic) Anemia (Chronic) Mild cognitive impairment (Chronic) Osteoporosis (Chronic) Diabetes mellitus, type 2 (Chronic) Dyslipidemia (Chronic) Compression fracture of L1 lumbar vertebra (Chronic) GERD (gastroesophageal reflux disease) (Chronic) HTN (hypertension) (Chronic) Choledocholithiasis with obstruction (Chronic) Diverticulosis (Chronic) Hx of hyperparathyroidism (Chronic) Osteoarthritis (Chronic) History of compression fracture of vertebral column (Chronic) Osteoarthritis of right knee (Chronic) Hyperlipidemia (Chronic) Breast cancer (Chronic) Vitamin D deficiency (Chronic) Constipation (Chronic) Diabetes mellitus (Chronic) Depression (Chronic) Nausea (Chronic) Hospital Course and Treatment Consultations 02/06/19 15:11 Consult: Onc/Wound/certified substance abuse counselor Routine Comment: Operations: None Procedures: None Summary of Care Provided: The patient is a 83 year old F seen in the emergency room at [facility] after being brought in by her family members due to perceived inability of the patient to care for herself at home. Patient lives alone, she has multiple medical problems and the family was concerned that she was not taking care of herself. Examination in the ER revealed her lower extremities to be edematous with evidence of superficial abrasion secondary to debility and chronic edema. It was unknown whether the patient was taking her medications correctly at home. She had not been taking her Lasix due to the fact she had to get up to use the restroom when she took the Lasix and did not want to get out of bed. Patient's potassium was low in the emergency room, there were no signs of any infection. Patient was placed in observation status on MedSurg 3, she was seen by PT and OT and the wound care nurse, she was given IV Lasix and arrangements were made for the patient to be admitted to a alf facility for at least short-term inpatient rehab. On 02/09/2019, patient was seen and examined and felt to be in stable condition for transfer to a alf facility: On examination she exhibited some moderate cognitive impairment, she was aware of person and place. Vital signs as documented. Skin warm and dry and without overt rashes. Neck without JVD. Lungs clear. Heart exam notable for regular rhythm, normal sounds and absence of murmurs, rubs or gallops. Abdomen unremarkable and without evidence of organomegaly, masses, or abdominal aortic enlargement. Extremities nonedematous. Neuro: Cranial nerves II through XII are grossly intact, no focal motor deficits were noted, sensation to light touch and pinprick is intact. Psych: Patient is alert affect is flat Patient Problems: Active and Suspected Problems (Last Reviewed 10/15/17 @ 09:54 by Jaleel Burciaga) Failure to thrive (Acute) - Physical Exam Vital Signs Temp Pulse Resp BP Pulse Ox 98.5 F 60 18 128/51 H 94 02/09/19 19:45 02/09/19 19:45 02/09/19 19:45 02/09/19 19:45 02/09/19 19:45 Oxygen Delivery Method Room Air Weight: 82.2 kg Body Mass Index (BMI) 33.1 Finger Stick Blood Glucose 91 Intake and Output for Last 24 Hours 02/08/19 02/09/19 02/10/19 23:59 23:59 23:59 Intake Total 870 / 870 1300 / 1300 Output Total 2300 / 2300 400 / 400 Balance -1430 / -1430 900 / 900 POC Glucose 02/09/19 02/09/19 16:52 11:26 POC Glucose 172 H 338 H Home Medications: Medications to take at Discharge Citalopram [Celexa] 20 mg PO DAILY 03/13/16 Vit A/Vit C/Vit E/Zinc/Copper [Preservision Areds Softgel] 1 ea PO BID 09/29/16 Amlodipine [Norvasc] 5 mg PO DAILY 06/04/17 Cholecalciferol (VIT D3) [Vitamin D3] 2,000 unit PO DAILY 02/06/19 Fluorometholone [Fml] 1 drp OP DAILY 02/06/19 Polyvinyl Alcohol/Povidone/Pf [Refresh Classic Eye Drops] 1 - 2 drp OP BID 02/06/19 Propranolol HCl [Inderal LA (Beta Dorita)] 80 mg PO DAILY 02/06/19 Ramipril [Altace] 10 mg PO DAILY 02/06/19 Acetaminophen [Tylenol Tablet] 650 mg PO Q6H PRN PRN tab 02/09/19 Donepezil HCl [Aricept] 10 mg PO QHS 02/09/19 Furosemide 40 mg PO DAILY PRN #1 tab 02/09/19 Potassium Chloride [K-Dur] 20 meq PO DAILY 02/09/19 Following Prescrptions Were Given to Patient: Furosemide 40 mg PO DAILY PRN #1 tab PRN Reason: Swelling Primary Care Physician: Kasi Black III, MD [Primary Care Provider] - Disposition: Shelter facility Minutes spent on discharge:: 32 Patient Condition:: Stable Medical Necessity - Tobacco Use Smoking Status: Never smoker Tobacco Use: Non-smoker Meaningful Use Info Meaningful Use Diagnoses (Choose all that apply): None applicable Code Visit OBSV E&M: 13575 Observation care discharge
== END 2019-02-09 20:10 | disposition skilled nursing facility (03) ==
LOC: ED 10:44 → MS3 15:08
PROVIDERS: Admitting Provider Internal Medicine; Emergency Provider Emergency Medicine; Family Provider Family Medicine; PCP Family Medicine; Referring Provider Internal Medicine; Visit Provider Internal Medicine
DX: R62.7 Adult failure to thrive (principal); E87.6 Hypokalemia; M19.90 Unspecified osteoarthritis, unspecified site; I89.0 Lymphedema, not elsewhere classified; I10 Essential (primary) hypertension; E11.9 Type 2 diabetes mellitus without complications; M79.89 Other specified soft tissue disorders; R60.0 Localized edema; E78.5 Hyperlipidemia, unspecified; F32.9 Major depressive disorder, single episode, unspecified; K21.9 Gastro-esophageal reflux disease without esophagitis; E55.9 Vitamin D deficiency, unspecified; Z91.19 Patient's noncompliance with other medical treatment and regimen; Z68.33 Body mass index [BMI] 33.0-33.9, adult; Z79.899 Other long term (current) drug therapy; S80.812A Abrasion, left lower leg, initial encounter; S80.811A Abrasion, right lower leg, initial encounter; X58.XXXA Exposure to other specified factors, initial encounter; Y93.9 Activity, unspecified; Y92.9 Unspecified place or not applicable
CPT/HCPCS: 36415; 80048; 82962; 85025; 96374; 96376; 97162; 97166; 97530; 97802; 99218; 99284; A4216; G0378; J1940

== ENCOUNTER 2019-02-09 20:45 | Inpatient (IN) | payer MEDICARE, SELFPAY ==
[2019-02-06 13:38] VITALS: BMI 33.1
--- NOTE | 2019-02-09 21:00 | NURSING ---
Patient arrived to unit from [facility]. Patient acclimated to room and call light at this time.
[2019-02-09 21:05] VITALS: BP 145/55; PULSE 56; RESP 16; TEMP 36.6; O2SAT 96; BMI 33.3
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
[2019-02-09] MEDS: Donepezil HCl 10 MG Tablet PO (22:15)
[2019-02-10 06:07] LABS: Absolute Lymphocyte Count 2.11 X10^3/uL (0.83-4.51); Absolute Neutrophil Count 4.6 X10^3/uL (2.0-7.7); Basophil# 0.07 X10^3/uL; Basophil% 0.8 % (0-1); Eosinophil# 0.63 X10^3/uL; Eosinophils% 7.4 % (0-5); Hematocrit 42.1 % (37-47); Hemoglobin 14.1 g/dL (12.0-15.0); Lymphocyte # 2.11 X10^3/ul (4.0); Lymphocyte % 24.9 % (19-41); Mean Corp Hgb Conc 33.5 g/dL (32-36); Mean Corpuscular Volume 101.4 fL (81-99); Mean Platelet Vol. 12.5 fl (6.2-12.0); Monocyte# 1.06 X10^3/uL; Monocyte% 12.5 % (0-10); NRBC Flagged by Analyzer 0 % (0-5); Neutrophil # 4.58 X10^3/uL (2.7-7.7); Neutrophil % 53.9 % (47-70); Platelet Count 173 K/mm3 (150-450); RBC Distribution Width CV 13.3 % (11.6-14.6); RBC Distribution Width SD 49.9 fl (35.1-43.9); Red Blood Count 4.15 M/mm3 (4.2-5.4); White Blood Count 8.5 K/mm3 (4.4-11.0)
[2019-02-10 06:23] LABS: Anion Gap 8 (5-15); BUN 19 mg/dL (7-18); BUN/Creat Ratio 17.8 RATIO (10-20); Calcium,Total 9.4 mg/dL (8.5-10.1); Chloride 103 mmol/L (98-107); Creatinine, Serum 1.07 mg/dL (0.55-1.02); EST Glomerular Filtration Rate 52 mL/min (>60); Est Glom Filt Rate - Afr Amer 63 mL/min (>60); Estimated Creatinine Clearance 30.06 ml/min; Glucose 212 mg/dL (74-106); Potassium 4.3 mmol/L (3.5-5.1); Sodium Level 141 mmol/L (136-145)
[2019-02-10 06:31] LABS: Bedside Glucose 210 mg/dL (70-110)
[2019-02-10] MEDS: Nystatin Powder 15gm Bottle 1 APPLIC TOPICAL ×2 (06:32→17:17)
[2019-02-10] MEDS: Glucerna Shake 120 ML LIQUID PO ×4 (06:32→20:41)
[2019-02-10] MEDS: Furosemide 40 MG Tablet PO (06:32)
[2019-02-10] MEDS: Enoxaparin 40 MG/0.4 ML Syringe SC (06:32)
[2019-02-10] MEDS: Ramipril 10 MG Capsule PO (06:32)
[2019-02-10] MEDS: Propranolol LA 80 MG Capsule PO (06:32)
[2019-02-10] MEDS: Menthol/Lanolin/Calamine/Znox 113 GM Tube 1 APPLIC TOPICAL ×2 (06:32→17:16)
[2019-02-10] MEDS: Citalopram 20 MG Tablet PO (06:32)
[2019-02-10] MEDS: amLODIPine 5 MG Tablet PO (06:33)
[2019-02-10] MEDS: Senna/Docusate Sodium 1 Tablet PO ×2 (06:33→17:15)
[2019-02-10] MEDS: Multivitamin (Healthy Eyes) Capsule 1 CAP PO ×2 (08:46→17:15)
--- NOTE | 2019-02-10 08:50 | NURSING ---
New order to D/C Lovenox.
[2019-02-10] MEDS: Tuberculin,Purif.prot.deriv. 50 TU/ML Vial 5 ML ID (09:31)
[2019-02-10 09:35] VITALS: PULSE 58; RESP 18; O2SAT 92
--- NOTE | 2019-02-10 09:42 | NURSING ---
rosina holder/wound nurse changed pt dressings this morning.
--- NOTE | 2019-02-10 10:01 | NURSING ---
CRACKLES TO PT POST LOWER LOBES. I.S GIVEN AND EDUCATED PT. PT DEMONSTRATED BACK AND STATED UNDERSTANDING. CJ RODRIGUEZ AWARE.
[2019-02-10 11:06] LABS: Bedside Glucose 235 mg/dL (70-110)
[2019-02-10 15:57] VITALS: BP 122/50; PULSE 57; RESP 18; TEMP 37; O2SAT 95
[2019-02-10 17:06] LABS: Bedside Glucose 208 mg/dL (70-110)
[2019-02-10] MEDS: Donepezil HCl 10 MG Tablet PO (20:41)
[2019-02-10 21:21] LABS: Bedside Glucose 234 mg/dL (70-110)
[2019-02-11] MEDS: Ramipril 10 MG Capsule PO (05:28)
[2019-02-11] MEDS: Propranolol LA 80 MG Capsule PO (05:28)
[2019-02-11] MEDS: Senna/Docusate Sodium 1 Tablet PO (05:28)
[2019-02-11] MEDS: amLODIPine 5 MG Tablet PO (05:28)
[2019-02-11] MEDS: Furosemide 40 MG Tablet PO (05:28)
[2019-02-11] MEDS: Citalopram 20 MG Tablet PO (05:28)
[2019-02-11] MEDS: Acetaminophen 500 MG Tablet 1000 MG PO (05:32)
[2019-02-11] MEDS: Glucerna Shake 120 ML LIQUID PO ×4 (05:32→20:36)
[2019-02-11] MEDS: Menthol/Lanolin/Calamine/Znox 113 GM Tube 1 APPLIC TOPICAL ×2 (05:35→17:21)
[2019-02-11] MEDS: Nystatin Powder 15gm Bottle 1 APPLIC TOPICAL ×2 (05:36→17:21)
[2019-02-11 06:41] LABS: Bedside Glucose 249 mg/dL (70-110)
[2019-02-11] MEDS: Multivitamin (Healthy Eyes) Capsule 1 CAP PO ×2 (08:52→17:20)
--- NOTE | 2019-02-11 09:18 | NURSING ---
Addendum entered by Cora Maloney 02/11/19 15:33: dr cook reviewed sugars, entered order for lantus at hs Original Note: dr cook upated on elevated Blood sugars. no new orders, continue to monitor sugars. pt a diabetic type 2.
[2019-02-11 11:35] LABS: Bedside Glucose 271 mg/dL (70-110)
[2019-02-11 16:00] VITALS: BP 133/56; PULSE 59; RESP 18; TEMP 36.3; O2SAT 93
[2019-02-11 17:00] LABS: Bedside Glucose 228 mg/dL (70-110)
[2019-02-11] MEDS: FLUOROMETHOLONE 5 ML DROPS.SUSP EACH EYE (20:31)
[2019-02-11] MEDS: Donepezil HCl 10 MG Tablet PO (20:32)
[2019-02-11 21:06] LABS: Bedside Glucose 265 mg/dL (70-110)
[2019-02-12 05:00] VITALS: BP 125/67; PULSE 61
[2019-02-12] MEDS: Glucerna Shake 120 ML LIQUID PO ×4 (05:03→21:19)
[2019-02-12] MEDS: amLODIPine 5 MG Tablet PO (05:04)
[2019-02-12] MEDS: Ramipril 10 MG Capsule PO (05:04)
[2019-02-12] MEDS: Furosemide 40 MG Tablet PO (05:04)
[2019-02-12] MEDS: Propranolol LA 80 MG Capsule PO (05:04)
[2019-02-12] MEDS: Citalopram 20 MG Tablet PO (05:04)
[2019-02-12] MEDS: FLUOROMETHOLONE 5 ML DROPS.SUSP EACH EYE ×2 (05:05→21:18)
[2019-02-12] MEDS: Nystatin Powder 15gm Bottle 1 APPLIC TOPICAL ×2 (05:07→17:43)
[2019-02-12] MEDS: Menthol/Lanolin/Calamine/Znox 113 GM Tube 1 APPLIC TOPICAL ×2 (05:08→17:44)
[2019-02-12 06:26] LABS: Bedside Glucose 219 mg/dL (70-110)
[2019-02-12] MEDS: Multivitamin (Healthy Eyes) Capsule 1 CAP PO ×2 (08:11→17:36)
[2019-02-12 11:30] LABS: Bedside Glucose 261 mg/dL (70-110)
[2019-02-12 15:51] VITALS: BP 119/60; PULSE 61; RESP 18; TEMP 36.8; O2SAT 94
[2019-02-12 17:05] LABS: Bedside Glucose 199 mg/dL (70-110)
[2019-02-12] MEDS: Senna/Docusate Sodium 1 Tablet PO (17:36)
[2019-02-12] MEDS: Donepezil HCl 10 MG Tablet PO (21:15)
[2019-02-12 21:26] LABS: Bedside Glucose 271 mg/dL (70-110)
[2019-02-13] MEDS: Ramipril 10 MG Capsule PO (05:45)
[2019-02-13] MEDS: Propranolol LA 80 MG Capsule PO (05:45)
[2019-02-13] MEDS: Furosemide 40 MG Tablet PO (05:45)
[2019-02-13] MEDS: Citalopram 20 MG Tablet PO (05:45)
[2019-02-13] MEDS: amLODIPine 5 MG Tablet PO (05:45)
[2019-02-13] MEDS: Senna/Docusate Sodium 1 Tablet PO (05:45)
[2019-02-13] MEDS: Glucerna Shake 120 ML LIQUID PO ×4 (05:45→22:02)
[2019-02-13] MEDS: Nystatin Powder 15gm Bottle 1 APPLIC TOPICAL ×2 (05:47→17:30)
[2019-02-13] MEDS: FLUOROMETHOLONE 5 ML DROPS.SUSP EACH EYE ×2 (05:47→22:07)
[2019-02-13] MEDS: Menthol/Lanolin/Calamine/Znox 113 GM Tube 1 APPLIC TOPICAL ×2 (05:59→17:30)
--- NOTE | 2019-02-13 07:07 | PCM.PN.RX ---
<Adonay Hanson - Last Filed: 02/13/19 07:07> Progress Note - Pharmacy Subjective: [] TCU Admission Objective: Allergies atorvastatin [From Lipitor] Adverse Reaction (Verified 02/06/19 21:21) myalgia metformin Adverse Reaction (Verified 02/06/19 21:21) Diarrhea nitrofurantoin [From Macrobid] Adverse Reaction (Verified 02/06/19 14:11) Other Headaches years ago nitrofurantoin macrocrystalline [From Macrobid] Adverse Reaction (Verified 02/06/19 21:21) headache quinine Adverse Reaction (Verified 02/06/19 21:21) Unknown Sulfa (Sulfonamide Antibiotics) Adverse Reaction (Verified 02/06/19 21:21) headaches Current Medications Generic Name Dose Route Start Last Admin Trade Name Freq PRN Reason Stop Dose Admin Acetaminophen 1,000 mg 02/09/19 21:54 02/11/19 05:32 Tylenol PO 1,000 mg Q6H PRN PRN Administration MILD PAIN (1-3/10) Amlodipine Besylate 5 mg 02/10/19 06:00 02/13/19 05:45 Norvasc PO 5 mg DAILY FELIZ Administration Artificial Tears 2 drop 02/10/19 06:00 02/13/19 06:00 Tears Naturale, Artificial Tears EACH EYE 2 drop BID FELIZ Administration Bisacodyl 10 mg 02/09/19 21:54 Dulcolax PO DAILY PRN Constipation Calamine/Phenol 1 applic 02/10/19 06:00 02/13/19 05:59 Calmoseptine Ointment TOPICAL 1 applicatio BID FELIZ Administration Protocol Cholecalciferol 2,000 unit 02/10/19 06:00 02/13/19 05:45 Vitamin D PO 2,000 unit DAILY FELIZ Administration Citalopram Hydrobromide 20 mg 02/10/19 06:00 02/13/19 05:45 Celexa PO 20 mg DAILY FELIZ Administration Donepezil HCl 10 mg 02/09/19 22:00 02/12/19 21:15 Aricept PO 10 mg QHS FELIZ Administration Fluorometholone 0 ml 02/11/19 22:00 02/13/19 05:47 Fluorometholone EACH EYE 5 ml BID@0600,2200 FELIZ Administration Furosemide 40 mg 02/10/19 06:00 02/13/19 05:45 Lasix PO 40 mg DAILY FELIZ Administration Insulin Glargine 10 units 02/11/19 22:00 02/12/19 21:14 Lantus (Bkc) SC 10 u QHS FELIZ Administration Multi-Ingredient Cream 1 applic 02/09/19 23:15 Eucerin TOPICAL BID PRN PRN Protocol Multivitamins/Minerals 1 capsule 02/10/19 08:00 02/12/19 17:36 Healthy Eyes PO 1 capsule BIDCM FELIZ Administration Nutritional Formula (Lactose Free) 120 ml 02/10/19 06:00 02/13/19 05:45 Glucerna Shake PO 120 ml 4X/DAY FELIZ Administration Nystatin 1 applic 02/10/19 06:00 02/13/19 05:47 Mycostatin Powder TOPICAL 1 applicatio BID [facility] Administration Protocol Polyethylene Glycol 17 gm 02/10/19 06:00 02/13/19 05:46 Miralax PO Not Given DAILY [facility] Potassium Chloride 20 meq 02/10/19 08:00 02/12/19 08:12 K-Dur PO 20 meq DAILYCM [facility] Administration Propranolol HCl 80 mg 02/10/19 06:00 02/13/19 05:45 Inderal La PO 80 mg DAILY FELIZ Administration Ramipril 10 mg 02/10/19 06:00 02/13/19 05:45 Altace PO 10 mg DAILY FELIZ Administration Senna/Docusate Sodium 1 tablet 02/10/19 06:00 02/13/19 05:45 Senokot-S, Miriam-Colace PO 1 tablet BID FELIZ Administration Tuberculin PPD 5 tu 02/17/19 10:00 Tubersol, Aplisol, Ppd ID 02/17/19 10:01 X1 ONE Problem List (Last Reviewed 10/15/17 @ 09:54 by Jaleel Burciaga) Failure to thrive (Acute) Anemia (Chronic) Mild cognitive impairment (Chronic) Osteoporosis (Chronic) Vital Signs Temp Pulse Resp BP Pulse Ox 98.3 F 61 18 119/60 94 02/12/19 15:51 02/12/19 15:51 02/12/19 15:51 02/12/19 15:51 02/12/19 15:51 Oxygen Delivery Method Room Air Weight: 82.2 kg Body Mass Index (BMI) 33.3 Finger Stick Blood Glucose 91 Sodium 141 mmol/L (136-145) 02/10/19 05:05 Potassium 4.3 mmol/L (3.5-5.1) 02/10/19 05:05 Chloride 103 mmol/L (98-107) 02/10/19 05:05 Carbon Dioxide 30.0 mmol/L (21.0-32.0) 02/10/19 05:05 Anion Gap 8 (5-15) 02/10/19 05:05 BUN 19 mg/dL (7-18) H 02/10/19 05:05 Creatinine 1.07 mg/dL (0.55-1.02) H 02/10/19 05:05 Est GFR (MDRD) Af Amer 63 mL/min (>60) 02/10/19 05:05 Est GFR (MDRD) Non-Af 52 mL/min (>60) L 02/10/19 05:05 BUN/Creatinine Ratio 17.8 RATIO (10-20) 02/10/19 05:05 Glucose 212 mg/dL (74-106) H 02/10/19 05:05 Assessment/Plan: 1) Pain: Acetaminophen 1000mg po q6h prn for mild pain. Please continue to monitor prn usage and for signs/symptoms of increased/decreased pain 2) Hypokalemia: Potassium Chloride 20meq po daily with food. Pt's last K+ was within normal limits. Please continue to monitor. *3) Vitamin D Deficiency: Vitamin D 2000 units po daily. I could not find a recent Vitamin D level in the pt's chart. Please consider a yearly Vitamin D level. Thanks 4) Edema: Furosemide 40mg po daily. Pt's Na is 141, K+ is 4.3, SrCr is 1.07. Please continue to monitor labs. Pt's weight is steady at 82.2kg. Please continue to monitor weight. 5) Alzheimer's Disease: Donepezil 10mg po qhs. Please continue to monitor for signs/symptoms of Alzheimer's Disease 6) Hypertension: Amlodipine 5mg po daily, Ramipril 10mg po daily, Propranolol LA 80mg po daily. Pt's pulse rate and rhythm are regular and strong. Please continue to monitor. Pt's average blood pressure is 128.8/57.6. Please continue to monitor. Psychotropic Medications: Citalopram 20mg po daily for depression. Medication will require a GDR by 08/2019 unless clinically contraindicated Unnecessary Medications: *Bowel Regimen: Bisacodyl 10mg po daily prn for constipation, Miralax 17gm po daily, Senna/Docusate 1 tablet po bid. Pt has refused every dose of Miralax. Please consider making Miralax prn. Thanks Date of Note:: 02/13/19 - Provider Comments Provider responsibility: Provider responsible to enter orders to implement recommendations <Tone Casas Chi - Last Filed: 02/13/19 17:10> Progress Note - Pharmacy Subjective: [] Objective: Allergies atorvastatin [From Lipitor] Adverse Reaction (Verified 02/06/19 21:21) myalgia metformin Adverse Reaction (Verified 02/06/19 21:21) Diarrhea nitrofurantoin [From Macrobid] Adverse Reaction (Verified 02/06/19 14:11) Other Headaches years ago nitrofurantoin macrocrystalline [From Macrobid] Adverse Reaction (Verified 02/06/19 21:21) headache quinine Adverse Reaction (Verified 02/06/19 21:21) Unknown Sulfa (Sulfonamide Antibiotics) Adverse Reaction (Verified 02/06/19 21:21) headaches Current Medications Generic Name Dose Route Start Last Admin Trade Name Freq PRN Reason Stop Dose Admin Acetaminophen 1,000 mg 02/09/19 21:54 02/11/19 05:32 Tylenol PO 1,000 mg Q6H PRN PRN Administration MILD PAIN (1-3/10) Amlodipine Besylate 5 mg 02/10/19 06:00 02/13/19 05:45 Norvasc PO 5 mg DAILY FELIZ Administration Artificial Tears 2 drop 02/10/19 06:00 02/13/19 06:00 Tears Naturale, Artificial Tears EACH EYE 2 drop BID FELIZ Administration Bisacodyl 10 mg 02/09/19 21:54 Dulcolax PO DAILY PRN Constipation Calamine/Phenol 1 applic 02/10/19 06:00 02/13/19 05:59 Calmoseptine Ointment TOPICAL 1 applicatio BID FELIZ Administration Protocol Cholecalciferol 2,000 unit 02/10/19 06:00 02/13/19 05:45 Vitamin D PO 2,000 unit DAILY FELIZ Administration Citalopram Hydrobromide 20 mg 02/10/19 06:00 02/13/19 05:45 Celexa PO 20 mg DAILY FELIZ Administration Donepezil HCl 10 mg 02/09/19 22:00 02/12/19 21:15 Aricept PO 10 mg QHS FELIZ Administration Fluorometholone 0 ml 02/11/19 22:00 02/13/19 05:47 Fluorometholone EACH EYE 5 ml BID@0600,2200 FELIZ Administration Furosemide 40 mg 02/10/19 06:00 02/13/19 05:45 Lasix PO 40 mg DAILY FELIZ Administration Insulin Glargine 10 units 02/13/19 18:00 Lantus (Bkc) SC BID FELIZ Multi-Ingredient Cream 1 applic 02/09/19 23:15 Eucerin TOPICAL BID PRN PRN Protocol Multivitamins/Minerals 1 capsule 02/10/19 08:00 02/13/19 08:43 Healthy Eyes PO 1 capsule BIDCM FELIZ Administration Nutritional Formula (Lactose Free) 120 ml 02/10/19 06:00 02/13/19 11:55 Glucerna Shake PO 120 ml 4X/DAY FELIZ Administration Nystatin 1 applic 02/10/19 06:00 02/13/19 05:47 Mycostatin Powder TOPICAL 1 applicatio BID FELIZ Administration Protocol Polyethylene Glycol 17 gm 02/10/19 06:00 02/13/19 05:46 Miralax PO Not Given DAILY [facility] Potassium Chloride 20 meq 02/10/19 08:00 02/13/19 08:43 K-Dur PO 20 meq DAILYCM FELIZ Administration Propranolol HCl 80 mg 02/10/19 06:00 02/13/19 05:45 Inderal La PO 80 mg DAILY FELIZ Administration Ramipril 10 mg 02/10/19 06:00 02/13/19 05:45 Altace PO 10 mg DAILY FELIZ Administration Senna/Docusate Sodium 1 tablet 02/10/19 06:00 02/13/19 05:45 Senokot-S, Miriam-Colace PO 1 tablet BID FELIZ Administration Tuberculin PPD 5 tu 02/17/19 10:00 Tubersol, Aplisol, Ppd ID 02/17/19 10:01 X1 ONE Problem List (Last Reviewed 10/15/17 @ 09:54 by Jaleel Burciaga) Failure to thrive (Acute) Anemia (Chronic) Mild cognitive impairment (Chronic) Osteoporosis (Chronic) Vital Signs Temp Pulse Resp BP Pulse Ox 98.6 F 60 18 131/64 H 95 02/13/19 16:00 02/13/19 16:00 02/13/19 16:00 02/13/19 16:00 02/13/19 16:00 Oxygen Delivery Method Room Air Weight: 82.2 kg Body Mass Index (BMI) 33.3 Finger Stick Blood Glucose 91 Sodium 141 mmol/L (136-145) 02/10/19 05:05 Potassium 4.3 mmol/L (3.5-5.1) 02/10/19 05:05 Chloride 103 mmol/L (98-107) 02/10/19 05:05 Carbon Dioxide 30.0 mmol/L (21.0-32.0) 02/10/19 05:05 Anion Gap 8 (5-15) 02/10/19 05:05 BUN 19 mg/dL (7-18) H 02/10/19 05:05 Creatinine 1.07 mg/dL (0.55-1.02) H 02/10/19 05:05 Est GFR (MDRD) Af Amer 63 mL/min (>60) 02/10/19 05:05 Est GFR (MDRD) Non-Af 52 mL/min (>60) L 02/10/19 05:05 BUN/Creatinine Ratio 17.8 RATIO (10-20) 02/10/19 05:05 Glucose 212 mg/dL (74-106) H 02/10/19 05:05 Assessment/Plan: Psychotropic Medications: Unnecessary Medications: Bowel Regimen: - Provider Comments Provider responsibility: Provider responsible to enter orders to implement recommendations Provider Comments to Recommendations by Pharmacy: Agree
[2019-02-13 08:06] LABS: Bedside Glucose 261 mg/dL (70-110)
--- NOTE | 2019-02-13 08:40 | NURSING ---
New order to increase humalog 10 units to BID.
[2019-02-13] MEDS: Multivitamin (Healthy Eyes) Capsule 1 CAP PO ×2 (08:43→17:28)
--- NOTE | 2019-02-13 09:49 | CASEMGMT ---
Addendum entered by Latrice Briones 02/13/19 15:09: Continued stay approved. Next update due auth# [id number]. Original Note: Insurance: Continues stay review faxed this day. Auth #[id number].
[2019-02-13 11:00] LABS: Bedside Glucose 186 mg/dL (70-110)
--- NOTE | 2019-02-13 15:04 | NURSING ---
wound photo: right lower leg
--- NOTE | 2019-02-13 15:04 | NURSING ---
wound photo: left posterior lower leg
[2019-02-13 16:00] VITALS: BP 131/64; PULSE 60; RESP 18; TEMP 37; O2SAT 95
[2019-02-13 17:01] LABS: Bedside Glucose 173 mg/dL (70-110)
[2019-02-13 21:15] LABS: Bedside Glucose 229 mg/dL (70-110)
[2019-02-13 21:54] VITALS: PULSE 60; RESP 16; O2SAT 97
[2019-02-13] MEDS: Donepezil HCl 10 MG Tablet PO (22:03)
[2019-02-14] MEDS: Menthol/Lanolin/Calamine/Znox 113 GM Tube 1 APPLIC TOPICAL ×2 (06:15→18:09)
[2019-02-14] MEDS: FLUOROMETHOLONE 5 ML DROPS.SUSP EACH EYE ×2 (06:15→21:31)
[2019-02-14] MEDS: Propranolol LA 80 MG Capsule PO (06:18)
[2019-02-14] MEDS: Citalopram 20 MG Tablet PO (06:18)
[2019-02-14] MEDS: Furosemide 40 MG Tablet PO (06:18)
[2019-02-14] MEDS: Ramipril 10 MG Capsule PO (06:18)
[2019-02-14] MEDS: Senna/Docusate Sodium 1 Tablet PO (06:18)
[2019-02-14] MEDS: amLODIPine 5 MG Tablet PO (06:18)
[2019-02-14] MEDS: Nystatin Powder 15gm Bottle 1 APPLIC TOPICAL ×2 (06:19→18:05)
[2019-02-14] MEDS: Polyethylene Glycol 3350 17 GM PACKET PO (06:19)
[2019-02-14] MEDS: Glucerna Shake 120 ML LIQUID PO ×4 (06:25→21:31)
[2019-02-14 07:15] LABS: Bedside Glucose 198 mg/dL (70-110)
[2019-02-14] MEDS: Multivitamin (Healthy Eyes) Capsule 1 CAP PO ×2 (09:38→18:04)
[2019-02-14 11:21] LABS: Bedside Glucose 218 mg/dL (70-110)
[2019-02-14 15:23] VITALS: BP 112/62; PULSE 61; RESP 18; TEMP 36.4; O2SAT 94
[2019-02-14 17:00] LABS: Bedside Glucose 185 mg/dL (70-110)
[2019-02-14 21:11] LABS: Bedside Glucose 250 mg/dL (70-110)
[2019-02-14 21:25] VITALS: BP 110/64; PULSE 62; RESP 16; TEMP 36.9; O2SAT 92
[2019-02-14] MEDS: Donepezil HCl 10 MG Tablet PO (21:31)
--- NOTE | 2019-02-15 03:38 | CASEMGMT ---
Social Work Spoke with patient about potential discharge plans. Pt states she wants to return home and feels she will be safe at home. She understands her children has a different view on her returning home. Explained AL, LTC and private duty aides. Pt states AL is nice but wants to try it at home first. She may be interested and agreeable to hiring private duty aides to return home. Will continue to discuss plans and progress at care plan meeting with family tomorrow. MILY Love CAREER AGENT
[2019-02-15] MEDS: Citalopram 20 MG Tablet PO (05:15)
[2019-02-15] MEDS: Propranolol LA 80 MG Capsule PO (05:15)
[2019-02-15] MEDS: amLODIPine 5 MG Tablet PO (05:15)
[2019-02-15] MEDS: Furosemide 40 MG Tablet PO (05:15)
[2019-02-15] MEDS: Ramipril 10 MG Capsule PO (05:15)
[2019-02-15] MEDS: FLUOROMETHOLONE 5 ML DROPS.SUSP EACH EYE ×2 (05:16→21:08)
[2019-02-15] MEDS: Nystatin Powder 15gm Bottle 1 APPLIC TOPICAL ×2 (05:17→18:01)
[2019-02-15] MEDS: Menthol/Lanolin/Calamine/Znox 113 GM Tube 1 APPLIC TOPICAL ×2 (05:17→18:02)
[2019-02-15] MEDS: Glucerna Shake 120 ML LIQUID PO ×4 (05:26→21:08)
[2019-02-15 05:31] LABS: Bedside Glucose 212 mg/dL (70-110)
[2019-02-15] MEDS: Multivitamin (Healthy Eyes) Capsule 1 CAP PO ×2 (08:07→18:01)
--- NOTE | 2019-02-15 09:41 | NURSING ---
Addendum entered by Henok Arzate 02/15/19 11:51: CALLED CJ SON WOUND NURSE AND SHE STATED SHE DID NOT NEED TO SEE PT TODAY. THIS NURSE STATED TO PT THAT CJ SON DIDNT NEED TO SEE HER LEGS TODAY AND ASKED PT IF I COULD PUT THE AASHISH WRAPS ON. PT STATED YES! REPORTED TO CJ MARIE Original Note: PT REFUSED TO LET ME PUT HER AASHISH WRAPS ON. PT STATED SHE WANTS TO WAIT TILL CJ SON WOUND NURSE COMES UP TO LOOK AT HER LEGS. REPORTED TO CJ MARIE
[2019-02-15 11:16] LABS: Bedside Glucose 295 mg/dL (70-110)
--- NOTE | 2019-02-15 11:43 | NURSING ---
ASKED PT ABOUT WHAT CODE SHE WOULD LIKE TO BE. PT STATED SHE DIDNT KNOW. EXPLAINED TO PT THE DIFFERENCE AND PT STATED SHE WASN'T SURE. EXPLAINED TO PT WE WOULD STILL KEEP HER AT A FULL CODE TILL SHE WOULD MAKE A DECISION. PT STATED HER SON NEDRA WOULD BE IN TOMORROW. REPORTED TO CJ MARIE
--- NOTE | 2019-02-15 15:19 | NURSING ---
GOLDY Whiting reported to this nurse that pt had some dark areas noted to gluteal flolds bilaterally. Notified Jenae wound nurse. She stated she is aware of it and pt had those on admit to hospital. Replaced cushion for comfort.
[2019-02-15 15:22] VITALS: BP 133/65; PULSE 68; RESP 22; O2SAT 95
[2019-02-15 16:51] LABS: Bedside Glucose 197 mg/dL (70-110)
--- NOTE | 2019-02-15 17:36 | NURSING ---
PT STATED TO THIS NURSE THAT HER SON WILL BE AT PLAN OF CARE MEETING TOMORROW AND WILL DECIDE ON CODE STASIS THEN. REPORTED TO CJ MARIE
[2019-02-15] MEDS: Glycerin/Hypromellose/PEG400 15 ml Bottle 2 DRP EACH EYE (17:59)
[2019-02-15] MEDS: Senna/Docusate Sodium 1 Tablet PO (18:01)
[2019-02-15] MEDS: Acetaminophen 500 MG Tablet 1000 MG PO (21:07)
[2019-02-15] MEDS: Donepezil HCl 10 MG Tablet PO (21:07)
--- NOTE | 2019-02-15 21:38 | NURSING ---
dressings changed to BLE at this time. please view shift clinical assessment for further details. pt tolerated procedure well. pt voices no pain related to dressing change, does state slight headache this hs. AASHISH wraps left off for the night and BLE elevated. heels offloaded from bed. pt expresses concerns for edema returning without aashish wraps on, this nurse explained that AASHISH wraps will be applied in the am to help prevent edema in BLE. will continue education.
[2019-02-15 21:41] LABS: Bedside Glucose 236 mg/dL (70-110)
[2019-02-15 21:54] VITALS: PULSE 63; RESP 16
[2019-02-16] MEDS: Ramipril 10 MG Capsule PO (06:38)
[2019-02-16] MEDS: Citalopram 20 MG Tablet PO (06:38)
[2019-02-16] MEDS: FLUOROMETHOLONE 5 ML DROPS.SUSP EACH EYE ×2 (06:38→20:52)
[2019-02-16] MEDS: Glucerna Shake 120 ML LIQUID PO ×4 (06:38→20:52)
[2019-02-16] MEDS: Propranolol LA 80 MG Capsule PO (06:39)
[2019-02-16] MEDS: Furosemide 40 MG Tablet PO (06:39)
[2019-02-16] MEDS: amLODIPine 5 MG Tablet PO (06:40)
[2019-02-16 06:45] LABS: Bedside Glucose 239 mg/dL (70-110)
[2019-02-16] MEDS: Menthol/Lanolin/Calamine/Znox 113 GM Tube 1 APPLIC TOPICAL ×2 (06:45→17:52)
[2019-02-16] MEDS: Nystatin Powder 15gm Bottle 1 APPLIC TOPICAL ×2 (06:45→17:52)
[2019-02-16] MEDS: Multivitamin (Healthy Eyes) Capsule 1 CAP PO ×2 (07:59→18:18)
[2019-02-16 11:01] LABS: Bedside Glucose 285 mg/dL (70-110)
[2019-02-16 15:15] VITALS: BP 121/57; PULSE 64; RESP 16; TEMP 36.9; O2SAT 91
--- NOTE | 2019-02-16 16:44 | CASEMGMT ---
Social Work IDT met with patient and three sons for care plan meeting. Discussed patient's progress in therapy. Patient's assistance fluctuates. Pt averages CGA for transfers, walking 300 ft FWW and 5 steps, min to total for toilet hygiene, mod for LE and UE bathing. Max UE and LE dressing. Pt is working with ST for problem solving, memory strategies and decreases response time. IDT recommending 24/ supervision. Pt feels she can return home for 1 week then go to AL. Family and IDT agrees AL would be a great fit for pt and it would be better for her to transfer directly to AL. Pt will continue to work with therapy on improvements. NRD for insurance 02/20. Provided sons with lists of AL and pricing. encouraged them to call to ask questions and tour. Explained respite stays and private. Explained Medicaid, but son stated she would not qualify. Will continue to follow for discharge planning. Teresa Aguayo, FINANCIAL PROFESSIONAL WINDER OPERATOR
[2019-02-16 17:01] LABS: Bedside Glucose 240 mg/dL (70-110)
[2019-02-16] MEDS: Acetaminophen 500 MG Tablet 1000 MG PO (20:52)
[2019-02-16] MEDS: Donepezil HCl 10 MG Tablet PO (20:52)
--- NOTE | 2019-02-16 21:12 | NURSING ---
dressings changed this hs per order. see shift clinical findings for details. pt medicated with tylenol for headache prior to dressing change. pt voices no complaints of pain or discomfort with procedure. AASHISH wraps left off this hs and will be reapplied in the am. pt voices no other concerns or needs at this time. pt positioned comfortably and states she is ready for bed. call light within reach.
[2019-02-16 21:46] LABS: Bedside Glucose 252 mg/dL (70-110)
[2019-02-16 23:49] VITALS: PULSE 68; RESP 16
[2019-02-17 05:57] LABS: Absolute Lymphocyte Count 2.64 X10^3/uL (0.83-4.51); Absolute Neutrophil Count 6.9 X10^3/uL (2.0-7.7); Basophil# 0.06 X10^3/uL; Basophil% 0.5 % (0-1); Eosinophils% 5.3 % (0-5); Hematocrit 42.8 % (37-47); Hemoglobin 14.2 g/dL (12.0-15.0); Lymphocyte # 2.64 X10^3/ul (4.0); Lymphocyte % 23.2 % (19-41); Mean Corp Hgb Conc 33.2 g/dL (32-36); Mean Corpuscular Volume 102.4 fL (81-99); Mean Platelet Vol. 12.7 fl (6.2-12.0); Monocyte# 1.17 X10^3/uL; Monocyte% 10.3 % (0-10); NRBC Flagged by Analyzer 0 % (0-5); Neutrophil # 6.86 X10^3/uL (2.7-7.7); Neutrophil % 60.2 % (47-70); Platelet Count 195 K/mm3 (150-450); RBC Distribution Width CV 13.1 % (11.6-14.6); RBC Distribution Width SD 49.7 fl (35.1-43.9); Red Blood Count 4.18 M/mm3 (4.2-5.4); White Blood Count 11.4 K/mm3 (4.4-11.0)
[2019-02-17 06:08] LABS: Anion Gap 7 (5-15); BUN 32 mg/dL (7-18); BUN/Creat Ratio 24.1 RATIO (10-20); Calcium,Total 10.2 mg/dL (8.5-10.1); Chloride 103 mmol/L (98-107); Creatinine, Serum 1.33 mg/dL (0.55-1.02); EST Glomerular Filtration Rate 41 mL/min (>60); Est Glom Filt Rate - Afr Amer 49 mL/min (>60); Estimated Creatinine Clearance 24.18 ml/min; Glucose 186 mg/dL (74-106); Potassium 4.5 mmol/L (3.5-5.1); Sodium Level 139 mmol/L (136-145)
[2019-02-17] MEDS: Menthol/Lanolin/Calamine/Znox 113 GM Tube 1 APPLIC TOPICAL ×2 (06:25→17:55)
[2019-02-17] MEDS: Ramipril 10 MG Capsule PO (06:25)
[2019-02-17] MEDS: FLUOROMETHOLONE 5 ML DROPS.SUSP EACH EYE ×2 (06:26→20:45)
[2019-02-17] MEDS: Citalopram 20 MG Tablet PO (06:26)
[2019-02-17] MEDS: Glucerna Shake 120 ML LIQUID PO ×4 (06:26→20:40)
[2019-02-17] MEDS: amLODIPine 5 MG Tablet PO (06:27)
[2019-02-17] MEDS: Furosemide 40 MG Tablet PO (06:27)
[2019-02-17] MEDS: Propranolol LA 80 MG Capsule PO (06:27)
[2019-02-17] MEDS: Senna/Docusate Sodium 1 Tablet PO (06:28)
[2019-02-17] MEDS: Nystatin Powder 15gm Bottle 1 APPLIC TOPICAL ×2 (06:29→17:54)
[2019-02-17 06:36] LABS: Bedside Glucose 247 mg/dL (70-110)
[2019-02-17] MEDS: Multivitamin (Healthy Eyes) Capsule 1 CAP PO ×2 (08:21→17:54)
[2019-02-17 10:00] VITALS: PULSE 66; RESP 16; O2SAT 98
[2019-02-17 10:36] LABS: Bedside Glucose 298 mg/dL (70-110)
[2019-02-17] MEDS: Tuberculin,Purif.prot.deriv. 50 TU/ML Vial 5 ML ID (12:39)
--- NOTE | 2019-02-17 14:09 | CASEMGMT ---
Social Work Family went to [facility] today. Son requested a referral sent to determine if they can accept her when insurance cuts. Referral sent. Teresa Aguayo, ULTRASOUND SUPERVISOR MANAGER TRADING
[2019-02-17 15:42] VITALS: BP 151/76; PULSE 62; RESP 18; TEMP 36.9; O2SAT 94
[2019-02-17 16:55] LABS: Bedside Glucose 150 mg/dL (70-110)
[2019-02-17] MEDS: Donepezil HCl 10 MG Tablet PO (20:41)
[2019-02-17 21:15] LABS: Bedside Glucose 243 mg/dL (70-110)
[2019-02-18] MEDS: Citalopram 20 MG Tablet PO (04:46)
[2019-02-18] MEDS: Propranolol LA 80 MG Capsule PO (04:47)
[2019-02-18] MEDS: Ramipril 10 MG Capsule PO (04:47)
[2019-02-18] MEDS: Glucerna Shake 120 ML LIQUID PO ×4 (04:47→20:57)
[2019-02-18] MEDS: amLODIPine 5 MG Tablet PO (04:47)
[2019-02-18] MEDS: Furosemide 40 MG Tablet PO (04:47)
[2019-02-18] MEDS: Nystatin Powder 15gm Bottle 1 APPLIC TOPICAL ×2 (04:49→16:59)
[2019-02-18] MEDS: FLUOROMETHOLONE 5 ML DROPS.SUSP EACH EYE ×2 (04:49→20:57)
[2019-02-18] MEDS: Menthol/Lanolin/Calamine/Znox 113 GM Tube 1 APPLIC TOPICAL ×2 (04:50→16:58)
[2019-02-18 06:50] LABS: Bedside Glucose 232 mg/dL (70-110)
[2019-02-18] MEDS: Multivitamin (Healthy Eyes) Capsule 1 CAP PO ×2 (08:09→16:57)
[2019-02-18 09:30] VITALS: PULSE 59; RESP 18; O2SAT 97
[2019-02-18 10:56] LABS: Bedside Glucose 228 mg/dL (70-110)
[2019-02-18 15:41] VITALS: BP 112/45; PULSE 59; RESP 17; TEMP 36.9; O2SAT 94
[2019-02-18 16:56] LABS: Bedside Glucose 164 mg/dL (70-110)
[2019-02-18] MEDS: Donepezil HCl 10 MG Tablet PO (20:56)
[2019-02-18 21:40] LABS: Bedside Glucose 243 mg/dL (70-110)
[2019-02-19] MEDS: Multivitamin (Healthy Eyes) Capsule 1 CAP PO ×2 (04:51→17:52)
[2019-02-19] MEDS: Citalopram 20 MG Tablet PO (04:51)
[2019-02-19] MEDS: Furosemide 40 MG Tablet PO (04:52)
[2019-02-19] MEDS: Ramipril 10 MG Capsule PO (04:52)
[2019-02-19] MEDS: Menthol/Lanolin/Calamine/Znox 113 GM Tube 1 APPLIC TOPICAL ×2 (04:53→17:52)
[2019-02-19] MEDS: FLUOROMETHOLONE 5 ML DROPS.SUSP EACH EYE ×2 (04:54→21:32)
[2019-02-19] MEDS: amLODIPine 5 MG Tablet PO (04:57)
[2019-02-19] MEDS: Nystatin Powder 15gm Bottle 1 APPLIC TOPICAL ×2 (04:59→17:53)
[2019-02-19] MEDS: Propranolol LA 80 MG Capsule PO (05:01)
[2019-02-19] MEDS: Glucerna Shake 120 ML LIQUID PO ×4 (05:06→21:34)
[2019-02-19 06:51] LABS: Bedside Glucose 200 mg/dL (70-110)
[2019-02-19 10:41] LABS: Bedside Glucose 261 mg/dL (70-110)
[2019-02-19 16:00] VITALS: BP 124/59; PULSE 64; RESP 17; TEMP 36.9; O2SAT 95
[2019-02-19 16:46] LABS: Bedside Glucose 136 mg/dL (70-110)
[2019-02-19 21:25] LABS: Bedside Glucose 196 mg/dL (70-110)
[2019-02-19 21:30] VITALS: RESP 16
[2019-02-19] MEDS: Donepezil HCl 10 MG Tablet PO (21:31)
[2019-02-20 06:15] LABS: Bedside Glucose 142 mg/dL (70-110)
[2019-02-20] MEDS: Furosemide 40 MG Tablet PO (07:02)
[2019-02-20] MEDS: Ramipril 10 MG Capsule PO (07:02)
[2019-02-20] MEDS: Glucerna Shake 120 ML LIQUID PO ×4 (07:02→21:45)
[2019-02-20] MEDS: Citalopram 20 MG Tablet PO (07:02)
[2019-02-20] MEDS: Propranolol LA 80 MG Capsule PO (07:03)
[2019-02-20] MEDS: amLODIPine 5 MG Tablet PO (07:03)
[2019-02-20] MEDS: Nystatin Powder 15gm Bottle 1 APPLIC TOPICAL ×2 (07:04→18:29)
[2019-02-20] MEDS: Menthol/Lanolin/Calamine/Znox 113 GM Tube 1 APPLIC TOPICAL ×2 (07:04→18:28)
[2019-02-20] MEDS: FLUOROMETHOLONE 5 ML DROPS.SUSP EACH EYE ×2 (07:05→21:46)
[2019-02-20] MEDS: Multivitamin (Healthy Eyes) Capsule 1 CAP PO ×2 (08:23→18:30)
[2019-02-20 10:00] VITALS: PULSE 62; RESP 16; O2SAT 98
[2019-02-20 11:01] LABS: Bedside Glucose 213 mg/dL (70-110)
[2019-02-20 12:36] LABS: Vitamin D 1,25-Dihydroxy 24.5 pg/mL (19.9-79.3)
--- NOTE | 2019-02-20 13:41 | CASEMGMT ---
Insurance: Continued stay review emailed to [facility] this day. Auth #[id number].
[2019-02-20 15:16] VITALS: BP 124/59; PULSE 60; RESP 18; TEMP 36.9; O2SAT 94
[2019-02-20 17:11] LABS: Bedside Glucose 112 mg/dL (70-110)
[2019-02-20] MEDS: Donepezil HCl 10 MG Tablet PO (21:41)
[2019-02-20 22:30] LABS: Bedside Glucose 187 mg/dL (70-110)
[2019-02-21] MEDS: Menthol/Lanolin/Calamine/Znox 113 GM Tube 1 APPLIC TOPICAL ×2 (05:50→18:04)
[2019-02-21] MEDS: Glucerna Shake 120 ML LIQUID PO ×4 (05:50→21:28)
[2019-02-21] MEDS: FLUOROMETHOLONE 5 ML DROPS.SUSP EACH EYE ×2 (05:51→21:22)
[2019-02-21] MEDS: Ramipril 10 MG Capsule PO (05:52)
[2019-02-21] MEDS: amLODIPine 5 MG Tablet PO (05:52)
[2019-02-21] MEDS: Nystatin Powder 15gm Bottle 1 APPLIC TOPICAL ×2 (05:52→18:05)
[2019-02-21] MEDS: Furosemide 40 MG Tablet PO (05:52)
[2019-02-21] MEDS: Propranolol LA 80 MG Capsule PO (05:52)
[2019-02-21] MEDS: Citalopram 20 MG Tablet PO (05:52)
[2019-02-21] MEDS: Senna/Docusate Sodium 1 Tablet PO (05:54)
[2019-02-21 06:26] LABS: Bedside Glucose 203 mg/dL (70-110)
--- NOTE | 2019-02-21 07:37 | MDS.RN ---
Information for the mds was obtained from review of the clinical record, interview of resident, staff, and direct observation of resident's care.
[2019-02-21] MEDS: Multivitamin (Healthy Eyes) Capsule 1 CAP PO ×2 (08:43→18:03)
[2019-02-21 11:40] LABS: Bedside Glucose 205 mg/dL (70-110)
--- NOTE | 2019-02-21 13:18 | NURSING ---
Per therapy and pt, pt had episode of lightheadness while ambulating from recliner to bathroom. BP 93/54, 96/52, P 74, R 16, Temp 98.5, SpO2 95%. Pt stated she was ok. She stated that her right hearing aide battery and felt like she was felt alittle off d/t it. Stated her sister is bringing her in new batteries. Pt stressed that she was feeling ok and not to worry. Reported to Cora CORONA.
[2019-02-21 15:18] VITALS: BP 122/60; PULSE 66; RESP 20; TEMP 37.1; O2SAT 93
[2019-02-21 17:01] LABS: Bedside Glucose 132 mg/dL (70-110)
[2019-02-21 21:11] LABS: Bedside Glucose 199 mg/dL (70-110)
[2019-02-21 21:20] VITALS: PULSE 60; RESP 18; O2SAT 94
[2019-02-21] MEDS: Donepezil HCl 10 MG Tablet PO (21:24)
[2019-02-21 21:38] VITALS: BP 116/65; PULSE 60; RESP 18; TEMP 36.6; O2SAT 94
[2019-02-22] MEDS: Ramipril 10 MG Capsule PO (05:49)
[2019-02-22] MEDS: Citalopram 20 MG Tablet PO (05:49)
[2019-02-22] MEDS: Furosemide 40 MG Tablet PO (05:49)
[2019-02-22] MEDS: amLODIPine 5 MG Tablet PO (05:50)
[2019-02-22] MEDS: Propranolol LA 80 MG Capsule PO (05:50)
[2019-02-22] MEDS: FLUOROMETHOLONE 5 ML DROPS.SUSP EACH EYE ×2 (05:50→20:59)
[2019-02-22] MEDS: Nystatin Powder 15gm Bottle 1 APPLIC TOPICAL ×2 (05:51→18:11)
[2019-02-22] MEDS: Menthol/Lanolin/Calamine/Znox 113 GM Tube 1 APPLIC TOPICAL ×2 (05:52→18:11)
[2019-02-22] MEDS: Glucerna Shake 120 ML LIQUID PO ×4 (05:55→20:58)
[2019-02-22 06:06] LABS: Bedside Glucose 165 mg/dL (70-110)
[2019-02-22] MEDS: Acetaminophen 500 MG Tablet 1000 MG PO ×2 (08:19→16:27)
[2019-02-22] MEDS: Multivitamin (Healthy Eyes) Capsule 1 CAP PO ×2 (08:20→18:10)
[2019-02-22 10:20] VITALS: PULSE 58; RESP 18; O2SAT 96
--- NOTE | 2019-02-22 10:32 | NURSING ---
PT COMPLAINING OF LEFT HIP PAIN RADIATING DOWN LEG. PRN TYLENOL GIVEN. REPORTED TO CJ ATKINSON
[2019-02-22 12:50] LABS: Bedside Glucose 238 mg/dL (70-110)
[2019-02-22 16:00] VITALS: BP 117/62; PULSE 58; RESP 18; TEMP 37.1; O2SAT 95
--- NOTE | 2019-02-22 16:33 | RAD_ITS ---
STUDY: X-RAY - PELVIS AND LEFT HIP REASON FOR EXAM: Female, 83 years old. Pain TECHNIQUE: 3 views of the pelvis and hip. COMPARISON: None FINDINGS: There is a non-specific bowel gas pattern. Normal visualized soft tissue structures. Normal bilateral iliac wings, sacroiliac joints and visualized sacrum. Normal bilateral superior and inferior pubic rami. Normal pubic symphysis. Normal bilateral ischial tuberosities. Normal visualized femoral head. Normal acetabulum. Normal hip joint. RAD/HIP, UNI W/ Pelvis 2-3 Views IMPRESSION: Normal x-ray examination of the pelvis and hip. Electronically Signed: Chace Bullock, at 20:15 EDT Tel , Service support ,
[2019-02-22 17:10] LABS: Bedside Glucose 124 mg/dL (70-110)
[2019-02-22] MEDS: Donepezil HCl 10 MG Tablet PO (21:00)
[2019-02-22 21:26] LABS: Bedside Glucose 194 mg/dL (70-110)
[2019-02-23] MEDS: Glucerna Shake 120 ML LIQUID PO ×4 (05:39→22:54)
[2019-02-23] MEDS: amLODIPine 5 MG Tablet PO (05:40)
[2019-02-23] MEDS: Citalopram 20 MG Tablet PO (05:40)
[2019-02-23] MEDS: Ramipril 10 MG Capsule PO (05:40)
[2019-02-23] MEDS: Propranolol LA 80 MG Capsule PO (05:41)
[2019-02-23] MEDS: Furosemide 40 MG Tablet PO (05:42)
[2019-02-23] MEDS: FLUOROMETHOLONE 5 ML DROPS.SUSP EACH EYE ×2 (05:42→22:49)
[2019-02-23] MEDS: Nystatin Powder 15gm Bottle 1 APPLIC TOPICAL ×2 (05:44→17:54)
[2019-02-23] MEDS: Menthol/Lanolin/Calamine/Znox 113 GM Tube 1 APPLIC TOPICAL ×2 (05:47→17:54)
[2019-02-23 05:48] VITALS: BP 155/74; PULSE 63
[2019-02-23 06:31] LABS: Bedside Glucose 191 mg/dL (70-110)
[2019-02-23] MEDS: Multivitamin (Healthy Eyes) Capsule 1 CAP PO ×2 (08:05→17:51)
[2019-02-23 11:01] LABS: Bedside Glucose 219 mg/dL (70-110)
[2019-02-23 15:09] VITALS: BP 112/52; PULSE 60; RESP 21; TEMP 37.1; O2SAT 96
--- NOTE | 2019-02-23 16:23 | CASEMGMT ---
Addendum entered by Teresa Aguayo 02/24/19 14:48: Patient requires w/c transport - transport unavailable Wednesday - scheduled for bean picker machine operator Sunday 02/25 at 12:30 pm. Original Note: Social Work Insurance issued LCD 02/25, DC 02/26. Spoke with son and patient whom are both agreeable to the DC date and discharging to [facility] for a respite stay. Contacted [place] to confirm DC. Plan: DC 02/26 to [facility]. Teresa Aguayo, MILY TOMASW
[2019-02-23 17:06] LABS: Bedside Glucose 126 mg/dL (70-110)
--- NOTE | 2019-02-23 18:07 | NURSING ---
PT HAS BLOODY DISCHARGE ON ISAIAS PAD,SLIGHT SMELL. REPORTED TO CJ MARIE
--- NOTE | 2019-02-23 19:03 | NURSING ---
Addendum entered by Rayne Watson 02/23/19 23:00: Dr. Casas updated on below. New order for UA and culture. Original Note: THIS NURSE CALLED TO PT ROOM. PT HAVING MORE BLOODY DISCHARGE AND PT COMPLAINED OF LIGHT HEADEDNESS AND DIZZY, SHAKY. PT ALSO STATED SHE FELT LIKE SHE COULDN'T THINK STRAIGHT. PT ALSO HAS BEEN RUNNING TO THE BATH ROOM A LOT BUT NOT URINATING MUCH. VITALS AND BLOOD SUGAR DONE. PT WALKED BACK TO BED FROM BATH ROOM BY THIS NURSE AND AID. AID AT THIS TIME CLEANING PT UP AND CHANGED PT INTO GOWN. REPORTED TO CJ MARIE
[2019-02-23 19:15] LABS: Bedside Glucose 161 mg/dL (70-110)
[2019-02-23 19:16] VITALS: BP 125/63; PULSE 65; RESP 18; TEMP 37.3; O2SAT 95
--- NOTE | 2019-02-23 20:29 | DCINST_ITS ---
- Discharge Diagnoses Current Active Problems: Current Active and Chronic Problems (Last Reviewed 10/15/17 @ 09:54 by Jaleel Burciaga) Failure to thrive (Acute) Anemia (Chronic) Mild cognitive impairment (Chronic) Osteoporosis (Chronic) You will use the following diet at home:: No restrictions, Regular Your food should be the consistency of: Regular Your liquids should be the consistency of: Regular/Thin Discharge Activity: Return to Normal Activity, May Shower, Use Walker Weight Bearing Status: Weight bearing as tolerated Call your doctor if you observe: Fever of 101 or Higher, Inability to urinate, Inability to have a bowel movement, Shortness of breath, Chest pain, Uncontrolled pain Allergies/Adverse Reactions: Allergies atorvastatin [From Lipitor] Adverse Reaction (Verified 02/06/19 21:21) myalgia metformin Adverse Reaction (Verified 02/06/19 21:21) Diarrhea nitrofurantoin [From Macrobid] Adverse Reaction (Verified 02/06/19 14:11) Other Headaches years ago nitrofurantoin macrocrystalline [From Macrobid] Adverse Reaction (Verified 02/06/19 21:21) headache quinine Adverse Reaction (Verified 02/06/19 21:21) Unknown Sulfa (Sulfonamide Antibiotics) Adverse Reaction (Verified 02/06/19 21:21) headaches Medications to take at Discharge Citalopram [Celexa] 20 mg PO DAILY 03/13/16 Vit A/Vit C/Vit E/Zinc/Copper [Preservision Areds Softgel] 1 ea PO BID 09/29/16 Amlodipine [Norvasc] 5 mg PO DAILY 06/04/17 Cholecalciferol (VIT D3) [Vitamin D3] 2,000 unit PO DAILY 02/06/19 Fluorometholone [Fml] 1 drp OP BID 02/06/19 Polyvinyl Alcohol/Povidone/Pf [Refresh Classic Eye Drops] 1 - 2 drp OP BID 02/06/19 Propranolol HCl [Inderal LA (Beta Dorita)] 80 mg PO DAILY 02/06/19 Ramipril [Altace] 10 mg PO DAILY 02/06/19 Acetaminophen [Tylenol] 1,000 mg PO Q6H PRN PRN tablet 02/23/19 Donepezil HCl [Aricept] 10 mg PO QHS #30 tab 02/23/19 Furosemide 40 mg PO DAILY PRN #30 tab 02/23/19 Insulin Glargine [Lantus SoloStar Pen] 15 units SUBCUT BID #1 pen 02/23/19 Menthol/Lanolin/Calamine/Znox [Calmoseptine Ointment] 1 applic TOPICAL BID tube 02/23/19 Mineral Oil/Petrolatum,White [Eucerin] 1 applic TOPICAL QHS jar 02/23/19 Nystatin Powder [Mycostatin Powder] 1 applic TOPICAL BID bottle 02/23/19 Peg 400/Hypromellose/Glycerin [Artificial Tears] 2 drop EACH EYE Q1H PRN bottle 02/23/19 Potassium Chloride [K-Dur] 20 meq PO DAILY #30 tab 02/23/19 The following prescriptions were given: Donepezil HCl [Aricept] 10 mg PO QHS #30 tab Prescription Printed Furosemide 40 mg PO DAILY PRN #30 tab PRN Reason: Swelling Prescription Printed Potassium Chloride [K-Dur] 20 meq PO DAILY #30 tab Prescription Printed Insulin Glargine [Lantus SoloStar Pen] 15 units SUBCUT BID #1 pen Prescription Printed Primary Care Physician: Kasi Black III, MD [Primary Care Provider] - Please follow up with your Primary Care Physician in: 1 week. Test Results: Test results from this visit will be discussed in further detail at your follow- up appointment, if applicable. Proposed Discharge Date: 02/26/19
--- NOTE | 2019-02-23 20:30 | DS.PCM_ITS ---
Discharge Date and Diagnosis - Problem List Patient Problems: Active and Suspected Problems (Last Reviewed 10/15/17 @ 09:54 by Jaleel Burciaga) Failure to thrive (Acute) Date of Admission: 02/06/19 Date of Discharge: 02/26/19 - Primary Discharge Diagnosis Active and Suspected Problems (Last Reviewed 10/15/17 @ 09:54 by Jaleel Burciaga) Failure to thrive (Acute) - Secondary Discharge Diagnosis Chronic Problems (Last Reviewed 10/15/17 @ 09:54 by Jaleel Burciaga) Lymphedema (Chronic) Cognitive impairment (Chronic) Anemia (Chronic) Mild cognitive impairment (Chronic) Osteoporosis (Chronic) Diabetes mellitus, type 2 (Chronic) Dyslipidemia (Chronic) Compression fracture of L1 lumbar vertebra (Chronic) GERD (gastroesophageal reflux disease) (Chronic) HTN (hypertension) (Chronic) Choledocholithiasis with obstruction (Chronic) Diverticulosis (Chronic) Hx of hyperparathyroidism (Chronic) Osteoarthritis (Chronic) History of compression fracture of vertebral column (Chronic) Osteoarthritis of right knee (Chronic) Hyperlipidemia (Chronic) Breast cancer (Chronic) Vitamin D deficiency (Chronic) Constipation (Chronic) Diabetes mellitus (Chronic) Depression (Chronic) Nausea (Chronic) Hospital Course and Treatment Imaging Results: 02/09/19 21:20 Diet: Calorie Controlled Food consistency:: Regular Liquid Consistency:: Regular/Thin Is pt able to select menu?: No How many daily calories?: 1800 calorie Clinical Impression(s) from Imaging Studies Hip/Pelvis X-Ray 02/22/19 16:33 IMPRESSION: Normal x-ray examination of the pelvis and hip. Electronically Signed: Chace Bullock, at 20:15 EDT Tel , Service support , Labs (Last 48 Hours) 02/21/19 02/22/19 02/22/19 20:53 05:59 12:46 POC Glucose 199 H 165 H 238 H 02/22/19 02/22/19 02/23/19 17:06 21:15 06:10 POC Glucose 124 H 194 H 191 H 02/23/19 02/23/19 02/23/19 10:50 16:51 18:57 POC Glucose 219 H 126 H 161 H Consultations 02/10/19 01:00 Consult: Onc/Wound/fuel operator Routine Comment: Reason for Consult:: bilareral leg wound Operations: None Procedures: None Summary of Care Provided: The patient is a 83 year old Female with below past medical history hospitalized for bilateral lower extremity lymphedema, complicated by failure to thrive, suspected mild cognitive impairment, admitted to TCU with debility, here for rehabilitation, strengthening, prior to disposition determination. Lasix, potassium added for lymphedema. Donepezil added for Alzheimer's Disease. Discharge to [facility] for respite stay. Patient Problems: Active and Suspected Problems (Last Reviewed 10/15/17 @ 09:54 by Jaleel Burciaga) Failure to thrive (Acute) - Physical Exam Vital Signs Temp Pulse Resp BP Pulse Ox 99.1 F 65 18 125/63 H 95 02/23/19 19:16 02/23/19 19:16 02/23/19 19:16 02/23/19 19:16 02/23/19 19:16 Oxygen Delivery Method Room Air Weight: 74.134 kg Body Mass Index (BMI) 33.3 Finger Stick Blood Glucose 91 Intake and Output for Last 24 Hours 02/21/19 02/22/19 02/23/19 23:59 23:59 23:59 Intake Total 720 / 720 600 / 600 600 / 600 Balance 720 / 720 600 / 600 600 / 600 POC Glucose 02/23/19 02/23/19 02/23/19 18:57 16:51 10:50 POC Glucose 161 H 126 H 219 H 02/23/19 02/22/19 06:10 21:15 POC Glucose 191 H 194 H Discharge Diet: No Restrictions Discharge Activity: Return to Normal Activity, May Shower, Use Walker Weight Bearing Status: Weight bearing as tolerated Call your doctor if you observe: Fever of 101 or Higher, Inability to urinate, Inability to have a bowel movement, Shortness of breath, Chest pain, Uncontrolled pain Home Medications: Medications to take at Discharge Citalopram [Celexa] 20 mg PO DAILY 03/13/16 Vit A/Vit C/Vit E/Zinc/Copper [Preservision Areds Softgel] 1 ea PO BID 09/29/16 Amlodipine [Norvasc] 5 mg PO DAILY 06/04/17 Cholecalciferol (VIT D3) [Vitamin D3] 2,000 unit PO DAILY 02/06/19 Fluorometholone [Fml] 1 drp OP BID 02/06/19 Polyvinyl Alcohol/Povidone/Pf [Refresh Classic Eye Drops] 1 - 2 drp OP BID 02/06/19 Propranolol HCl [Inderal LA (Beta Dorita)] 80 mg PO DAILY 02/06/19 Ramipril [Altace] 10 mg PO DAILY 02/06/19 Acetaminophen [Tylenol] 1,000 mg PO Q6H PRN PRN tablet 02/23/19 Donepezil HCl [Aricept] 10 mg PO QHS #30 tab 02/23/19 Furosemide 40 mg PO DAILY PRN #30 tab 02/23/19 Insulin Glargine [Lantus SoloStar Pen] 15 units SUBCUT BID #1 pen 02/23/19 Menthol/Lanolin/Calamine/Znox [Calmoseptine Ointment] 1 applic TOPICAL BID tube 02/23/19 Mineral Oil/Petrolatum,White [Eucerin] 1 applic TOPICAL QHS jar 02/23/19 Nystatin Powder [Mycostatin Powder] 1 applic TOPICAL BID bottle 02/23/19 Peg 400/Hypromellose/Glycerin [Artificial Tears] 2 drop EACH EYE Q1H PRN bottle 02/23/19 Potassium Chloride [K-Dur] 20 meq PO DAILY #30 tab 02/23/19 Following Prescrptions Were Given to Patient: Donepezil HCl [Aricept] 10 mg PO QHS #30 tab Prescription Printed Furosemide 40 mg PO DAILY PRN #30 tab PRN Reason: Swelling Prescription Printed Potassium Chloride [K-Dur] 20 meq PO DAILY #30 tab Prescription Printed Insulin Glargine [Lantus SoloStar Pen] 15 units SUBCUT BID #1 pen Prescription Printed Primary Care Physician: Kasi Black III, MD [Primary Care Provider] - Please follow up with your Primary Care Physician in: 1 week. Disposition: [facility] Living/[facility] Minutes spent on discharge:: 30 Patient Condition:: Stable Medical Necessity - Tobacco Use Smoking Status: Never smoker Tobacco Use: Non-smoker Meaningful Use Info Meaningful Use Diagnoses (Choose all that apply): None applicable
[2019-02-23 21:51] LABS: Bedside Glucose 208 mg/dL (70-110)
[2019-02-23] MEDS: Donepezil HCl 10 MG Tablet PO (22:49)
[2019-02-23 23:46] LABS: Mucous, Urine 0 SEEN /hpf (<or=2+); Squamous Epithelial Cells - UA 0 SEEN /hpf (5-10)
[2019-02-23 23:53] LABS: Color, Urine Yellow (Yellow); Glucose, Dipstick Normal (Normal); Ketone-Dipstick Negative (Negative); Leukocyte Esterase-Dipstick 500 /ul (Negative); Nitrite-Dipstick Positive (Negative); Occult Blood-Urine 50 /ul (Negative); Protein-Dipstick Negative (Negative); Specific Gravity, Urine 1.015 (1.002-1.030); Urine Bilirubin Dipstick Negative (Negative); Urine Clarity Sl. Cloudy (Clear); Urine Urobilinogen Normal (Normal)
[2019-02-24 00:03] LABS: Bacteria 2+ /hpf (None Seen); Red Blood Cells-Urine 0-5 SEEN /hpf (0-5); White Blood Cells 10-25 SEEN /hpf (0-5)
[2019-02-24 05:48] LABS: Absolute Lymphocyte Count 2.65 X10^3/uL (0.83-4.51); Absolute Neutrophil Count 6.3 X10^3/uL (2.0-7.7); Basophil# 0.04 X10^3/uL; Basophil% 0.4 % (0-1); Eosinophil# 0.32 X10^3/uL; Hematocrit 39.9 % (37-47); Lymphocyte # 2.65 X10^3/ul (4.0); Mean Corp Hgb Conc 32.6 g/dL (32-36); Mean Corpuscular Hgb 33.9 pg (27.0-32.0); Mean Corpuscular Volume 103.9 fL (81-99); Mean Platelet Vol. 12.3 fl (6.2-12.0); Monocyte# 1.24 X10^3/uL; Monocyte% 11.7 % (0-10); NRBC Flagged by Analyzer 0 % (0-5); Neutrophil # 6.31 X10^3/uL (2.7-7.7); Neutrophil % 59.3 % (47-70); Platelet Count 196 K/mm3 (150-450); RBC Distribution Width CV 12.7 % (11.6-14.6); RBC Distribution Width SD 48.9 fl (35.1-43.9); Red Blood Count 3.84 M/mm3 (4.2-5.4); White Blood Count 10.6 K/mm3 (4.4-11.0)
[2019-02-24] MEDS: Ramipril 10 MG Capsule PO (06:14)
[2019-02-24] MEDS: Citalopram 20 MG Tablet PO (06:15)
[2019-02-24] MEDS: FLUOROMETHOLONE 5 ML DROPS.SUSP EACH EYE ×2 (06:15→21:15)
[2019-02-24] MEDS: Propranolol LA 80 MG Capsule PO (06:16)
[2019-02-24] MEDS: Glucerna Shake 120 ML LIQUID PO ×4 (06:16→21:15)
[2019-02-24] MEDS: Furosemide 40 MG Tablet PO (06:17)
[2019-02-24] MEDS: amLODIPine 5 MG Tablet PO (06:18)
[2019-02-24] MEDS: Nystatin Powder 15gm Bottle 1 APPLIC TOPICAL ×2 (06:18→17:52)
[2019-02-24] MEDS: Menthol/Lanolin/Calamine/Znox 113 GM Tube 1 APPLIC TOPICAL ×2 (06:19→17:52)
[2019-02-24 06:35] LABS: Bedside Glucose 159 mg/dL (70-110)
[2019-02-24 07:33] LABS: Anion Gap 5 (5-15); BUN 32 mg/dL (7-18); Calcium,Total 9.9 mg/dL (8.5-10.1); Chloride 102 mmol/L (98-107); Creatinine, Serum 1.23 mg/dL (0.55-1.02); EST Glomerular Filtration Rate 44 mL/min (>60); Est Glom Filt Rate - Afr Amer 54 mL/min (>60); Estimated Creatinine Clearance 26.15 ml/min; Glucose 133 mg/dL (74-106); Potassium 4.4 mmol/L (3.5-5.1); Sodium Level 136 mmol/L (136-145)
[2019-02-24] MEDS: Multivitamin (Healthy Eyes) Capsule 1 CAP PO ×2 (08:00→17:50)
[2019-02-24] MEDS: Ciprofloxacin 250 MG Tablet PO (10:17)
--- NOTE | 2019-02-24 10:49 | NURSING ---
Addendum entered by Cora Maloney 02/24/19 11:47: pt c/o legs itching, ice applied and dr casas notified again, new order for hydrocortisone cream PRN. pt reported that ice helping some. Original Note: Pt c/o itching to hands/feet/legs 30 minutes after receiving Po cipro for UTI. Deepak wraps removed, Dr Casas updated. New order to DC cipro and start ceftin x3 days.
[2019-02-24 11:21] LABS: Bedside Glucose 180 mg/dL (70-110)
--- NOTE | 2019-02-24 13:30 | NURSING ---
pt denies any itching at this time.
[2019-02-24 15:13] VITALS: BP 112/63; PULSE 60; RESP 18; TEMP 36.8; O2SAT 93
[2019-02-24 16:56] LABS: Bedside Glucose 120 mg/dL (70-110)
[2019-02-24] MEDS: CEFUROXIME AXETIL 250 MG TABLET 500 MG PO (17:50)
[2019-02-24 21:11] LABS: Bedside Glucose 173 mg/dL (70-110)
[2019-02-24] MEDS: Donepezil HCl 10 MG Tablet PO (21:16)
[2019-02-25] MEDS: amLODIPine 5 MG Tablet PO (05:29)
[2019-02-25] MEDS: Ramipril 10 MG Capsule PO (05:29)
[2019-02-25] MEDS: Propranolol LA 80 MG Capsule PO (05:29)
[2019-02-25] MEDS: Senna/Docusate Sodium 1 Tablet PO (05:29)
[2019-02-25] MEDS: CEFUROXIME AXETIL 250 MG TABLET 500 MG PO (05:29)
[2019-02-25] MEDS: Furosemide 40 MG Tablet PO (05:29)
[2019-02-25] MEDS: Nystatin Powder 15gm Bottle 1 APPLIC TOPICAL (05:30)
[2019-02-25] MEDS: Menthol/Lanolin/Calamine/Znox 113 GM Tube 1 APPLIC TOPICAL (05:32)
[2019-02-25] MEDS: Citalopram 20 MG Tablet PO (05:34)
[2019-02-25] MEDS: FLUOROMETHOLONE 5 ML DROPS.SUSP EACH EYE (05:34)
[2019-02-25] MEDS: Glucerna Shake 120 ML LIQUID PO ×2 (05:39→11:26)
[2019-02-25 06:26] LABS: Bedside Glucose 180 mg/dL (70-110)
[2019-02-25] MEDS: Multivitamin (Healthy Eyes) Capsule 1 CAP PO (08:23)
[2019-02-25 10:00] VITALS: PULSE 64; RESP 18; O2SAT 97
[2019-02-25 11:25] LABS: Bedside Glucose 246 mg/dL (70-110)
--- NOTE | 2019-02-25 12:15 | NURSING ---
Report called to Ira gramajo VM
[2019-02-25 12:29] VITALS: BP 118/64; PULSE 62; RESP 16; TEMP 36.7; O2SAT 95
[2019-02-25 12:30] VITALS: BP 116/66; PULSE 66; RESP 16; TEMP 36.7; O2SAT 95
--- NOTE | 2019-03-02 13:37 | MDS.RN ---
Information for the mds was obtained from review of the clinical record, interview of resident, staff, and direct observation of resident's care.
== END 2019-02-25 12:30 | disposition home or self-care (01) | DRG 948 ==
PROVIDERS: Admitting Provider Family Medicine Geriatric Medicine; Family Provider Family Medicine; PCP Family Medicine; Visit Provider Family Medicine Geriatric Medicine
DX: R53.81 Other malaise (principal); F32.9 Major depressive disorder, single episode, unspecified; I10 Essential (primary) hypertension; F02.80 Dementia in other diseases classified elsewhere, unspecified severity, without behavioral disturbance, psychotic disturbance, mood disturbance, and anxiety; G30.9 Alzheimer's disease, unspecified; E55.9 Vitamin D deficiency, unspecified; H35.30 Unspecified macular degeneration; E87.6 Hypokalemia; I89.0 Lymphedema, not elsewhere classified; E78.5 Hyperlipidemia, unspecified; K21.9 Gastro-esophageal reflux disease without esophagitis; E11.9 Type 2 diabetes mellitus without complications; Z91.19 Patient's noncompliance with other medical treatment and regimen; R62.7 Adult failure to thrive
CPT/HCPCS: 36415; 73502; 80048; 81001; 82652; 82962; 85025; 87077; 87086; 87088; 87186; 92507; 92610; 97110; 97116; 97162; 97166; 97530; 97535

== ENCOUNTER → 2019-03-10 | Outpatient (REF) | payer MEDICARE, SELFPAY ==
[2019-02-09 21:05] VITALS: BMI 33.3
[2019-03-10 08:44] LABS: Hemoglobin 13.9 g/dL (12.0-15.0); Mean Corp Hgb Conc 32.3 g/dL (32-36); Mean Corpuscular Hgb 33.7 pg (27.0-32.0); Mean Corpuscular Volume 104.1 fL (81-99); Mean Platelet Vol. 12.1 fl (6.2-12.0); Platelet Count 195 K/mm3 (150-450); RBC Distribution Width CV 12.5 % (11.6-14.6); RBC Distribution Width SD 48.1 fl (35.1-43.9); Red Blood Count 4.13 M/mm3 (4.2-5.4); White Blood Count 9.6 K/mm3 (4.4-11.0)
[2019-03-10 08:58] LABS: ALB/GLOB Ratio 0.9 RATIO (0.9-2.4); AST(SGOT) 25 U/L (15-37); Alanine Aminotransfer ALT/SGPT 28 U/L (13-56); Albumin, Serum 3.3 g/dL (3.2-5.0); Alkaline Phosphatase 51 U/L (45-117); Anion Gap 8 (5-15); BUN 35 mg/dL (7-18); Calcium,Total 9.7 mg/dL (8.5-10.1); Chloride 103 mmol/L (98-107); EST Glomerular Filtration Rate 38 mL/min (>60); Est Glom Filt Rate - Afr Amer 46 mL/min (>60); Globulin 3.5 g/dL (2.2-4.2); Glucose 90 mg/dL (74-106); Potassium 5.1 mmol/L (3.5-5.1); Protein, Total 6.8 g/dL (6.4-8.2); Sodium Level 140 mmol/L (136-145)
== END | disposition home or self-care (01) ==
LOC: OLS.WHLTSB 05:00
PROVIDERS: Visit Provider Family Medicine
DX: I11.0 Hypertensive heart disease with heart failure (principal); I50.33 Acute on chronic diastolic (congestive) heart failure
CPT/HCPCS: 36415; 80053; 85027

== ENCOUNTER → 2019-03-31 05:00 | Outpatient (REF) | payer MEDICARE, SELFPAY ==
[2019-02-09 21:05] VITALS: BMI 33.3
== END ==
LOC: OLS.WHLTSB 05:00
PROVIDERS: Visit Provider Family Medicine
DX: I10 Essential (primary) hypertension (principal); R19.7 Diarrhea, unspecified; L98.9 Disorder of the skin and subcutaneous tissue, unspecified; M48.50XA Collapsed vertebra, not elsewhere classified, site unspecified, initial encounter for fracture
CPT/HCPCS: 36415; 83735

== ENCOUNTER → 2019-10-02 15:00 | Outpatient (REF) | payer MEDICARE, SELFPAY ==
[2019-02-09 21:05] VITALS: BMI 33.3
== END ==
LOC: OLS.WHLTSB 15:00
PROVIDERS: PCP Family Medicine; Visit Provider Family Medicine
DX: I10 Essential (primary) hypertension (principal); R26.2 Difficulty in walking, not elsewhere classified; J34.89 Other specified disorders of nose and nasal sinuses; R19.7 Diarrhea, unspecified; L98.9 Disorder of the skin and subcutaneous tissue, unspecified; N39.0 Urinary tract infection, site not specified
CPT/HCPCS: 87077; 87086; 87088; 87186

== ENCOUNTER → 2019-10-13 06:00 | Outpatient (REF) | payer MEDICARE, SELFPAY ==
[2019-02-09 21:05] VITALS: BMI 33.3
[2019-10-13 07:49] LABS: Hematocrit 38.4 % (37-47); Hemoglobin 12.6 g/dL (12.0-15.0); Mean Corp Hgb Conc 32.8 g/dL (32-36); Mean Corpuscular Hgb 33.3 pg (27.0-32.0); Mean Corpuscular Volume 101.6 fL (81-99); Mean Platelet Vol. 10.7 fl (6.2-12.0); Platelet Count 222 K/mm3 (150-450); RBC Distribution Width CV 12.8 % (11.6-14.6); RBC Distribution Width SD 47.6 fl (35.1-43.9); Red Blood Count 3.78 M/mm3 (4.2-5.4); White Blood Count 10.9 K/mm3 (4.4-11.0)
[2019-10-13 08:08] LABS: ALB/GLOB Ratio 0.8 RATIO (0.9-2.4); AST(SGOT) 18 U/L (15-37); Alanine Aminotransfer ALT/SGPT 16 U/L (13-56); Albumin, Serum 2.8 g/dL (3.2-5.0); Alkaline Phosphatase 54 U/L (45-117); Anion Gap 4 (5-15); BUN 41 mg/dL (7-18); BUN/Creat Ratio 25.6 RATIO (10-20); Calcium,Total 9.9 mg/dL (8.5-10.1); Chloride 104 mmol/L (98-107); EST Glomerular Filtration Rate 33 mL/min (>60); Est Glom Filt Rate - Afr Amer 40 mL/min (>60); Globulin 3.5 g/dL (2.2-4.2); Glucose 93 mg/dL (74-106); Potassium 4.3 mmol/L (3.5-5.1); Protein, Total 6.3 g/dL (6.4-8.2); Sodium Level 137 mmol/L (136-145)
[2019-10-13 08:20] LABS: Hemoglobin A1c 5.8 % (4.2-6.3)
== END ==
LOC: OLS.WHLTSB 06:00
PROVIDERS: PCP Family Medicine; Visit Provider Family Medicine
DX: I50.33 Acute on chronic diastolic (congestive) heart failure (principal); I11.9 Hypertensive heart disease without heart failure; J34.89 Other specified disorders of nose and nasal sinuses; R19.7 Diarrhea, unspecified; L98.9 Disorder of the skin and subcutaneous tissue, unspecified; M48.50XA Collapsed vertebra, not elsewhere classified, site unspecified, initial encounter for fracture; Z79.899 Other long term (current) drug therapy
CPT/HCPCS: 36415; 80053; 83036; 85027

== ENCOUNTER → 2019-12-14 02:00 | Outpatient (REF) | payer MEDICARE, SELFPAY ==
[2019-02-09 21:05] VITALS: BMI 33.3
[2019-12-14 07:53] LABS: Color, Urine Yellow (Yellow); Glucose, Dipstick Normal (Normal); Ketone-Dipstick 5 mg/dl (Negative); Leukocyte Esterase-Dipstick 500 /ul (Negative); Nitrite-Dipstick Negative (Negative); Occult Blood-Urine 150 /ul (Negative); Protein-Dipstick 30 mg/dl (Negative); Specific Gravity, Urine 1.015 (1.002-1.030); Urine Bilirubin Dipstick Negative (Negative); Urine Clarity Cloudy (Clear); Urine Urobilinogen Normal (Normal)
[2019-12-14 19:56] VITALS: BMI 22.9
== END ==
LOC: OLS.WHLTSB 02:00
PROVIDERS: PCP Family Medicine; Visit Provider Family Medicine
DX: N39.0 Urinary tract infection, site not specified (principal); I10 Essential (primary) hypertension; R26.2 Difficulty in walking, not elsewhere classified; J34.89 Other specified disorders of nose and nasal sinuses; R19.7 Diarrhea, unspecified; L98.9 Disorder of the skin and subcutaneous tissue, unspecified
CPT/HCPCS: 81002; 87077; 87086; 87088; 87186

== ENCOUNTER 2019-12-14 14:46 | Inpatient (IN) | payer MEDICARE, SELFPAY ==
[2019-02-09 21:05] VITALS: BMI 33.3
[2019-12-14] VITALS (7 sets, daily range): BP systolic 102–128; BP diastolic 52–91; PULSE 70–88; RESP 15–18; TEMP 36.1–36.9; O2SAT 95–100; BMI 23.6; BMI 22.9; BMI 23.0
--- NOTE | 2019-12-14 15:41 | ED.DCSUM_ITS ---
- ER Visit Summary Date of Service: 12/14/19 Chief Complaint: Decreased mental status History of Present Illness: The patient is a 83 F from a residential with a recent fall and diagnosed with a UTI but had not been started on antibiotics. Today the residential facility thought that she had decreased mental status. Patient herself is unable to really give any substantial reported history to help with her evaluation. Physical Examination: Signs are stable and afebrile. She does not look septic or toxic. H EENT exam atraumatic. Translation motions are intact. No facial droop. No bruising. Neck nontender trachea midline no lymphadenopathy. Lungs clear to auscultation bilaterally. Heart regular rhythm no murmur rate about 90. Chest wall nontender. Abdomen soft nontender no bowel sounds no peritoneal signs. Patient is moving all 4 extremities. No deformity. She has trace edema both lower extremities equal symmetrical. Calves are nontender. Neurologically she is awake. She is speaking but saying nonsensical things. Her speech is not slurred. Normal. She follows very limited commands.. Test Results: Chest x-ray portable 1 view shows no acute abnormality. Prior left shoulder prosthesis. CT brain no acute abnormality chronic changes read by the radiologist reviewed by me. EKG sinus rhythm rate 84 no acute signs of ischemia. CBC showed an elevated white count of 16.4 hemoglobin 13. No bands. Chemistries potassium 5.3 gap 11. Glucose 59 BUN is 69 creatinine 3.69 previously was 1.6 consistent with acute dehydration acute kidney injury UA 5-10 white cells 3+ bacteria sent for culture will be treated for UTI no nitrates. Lactate 1.7. Emergency Department Course and Treatment: With mental status change and reported recent UTI but no antibiotics. Also reported recent fall. CAT scan of the brain with chest x-ray and labs are being obtained. Treatment Plan: Repeat exam and its 6:55 PM with no significant change. Patient receiving IV fluids. Will be started on IV Rocephin. Hospitalist is on page for admission. Disposition: Admission Impression: Acute mental status change Status post fall at the [facility] care facility Acute UTI Acute leukocytosis Acute kidney injury and dehydration This note was generated with [employer] dictation software. It may contain incorrect words, spelling, and punctuation that were not noted in review of the chart prior to signing ED Disposition - Plan for ED Patient: Referrals: Kasi Black III, MD [Primary Care Provider] -
--- NOTE | 2019-12-14 15:44 | EKG12_ITS ---
Test Reason : DYSRHYTHMIA Blood Pressure : / mmHG Vent. Rate : 084 BPM Atrial Rate : 084 BPM P-R Int : 186 ms QRS Dur : 142 ms QT Int : 412 ms P-R-T Axes : 004 261 030 degrees QTc Int : 486 ms Normal sinus rhythm Right bundle branch block Possible Lateral infarct , age undetermined Abnormal ECG Confirmed by NATAN GALINDO, SHIRLEY ([id number]), order editor TAVO WHEELER ([id number]) on 12/18/2019 8:17:35 AM Referred By: DON Confirmed By:SHIRLEY GAMA MD
--- NOTE | 2019-12-14 15:44 | CT_ITS ---
STUDY: CT BRAIN WITHOUT CONTRAST REASON FOR EXAM: Female, 83 years old. FALL THIS AM, INCREASED WEAKNESS, CONFUSION, AMS, RECENT DIAGNOSIS OF UTI W/O TREATMENT RADIATION DOSAGE (If Supplied By Facility): CTDIvol = ( 44.99 ) mGy, DLP = ( 762.36 ) mGycm TECHNIQUE: Transaxial CT imaging of the brain was performed without administration of intravenous contrast material. Individualized dose optimization techniques were used for this CT. COMPARISON: March 13, 2016 FINDINGS: Calcification of cavernous carotids. Normal soft tissue structures. Normal calvarium. Moderate atrophy and periventricular white matter ischemic changes.. Normal basal ganglia and thalami. Normal brainstem. Normal cerebellum. Empty sella deformity likely of no significance. There is no intracranial hemorrhage. There are no findings of an acute ischemic infarction. Postsurgical changes of the orbits. Normal visualized paranasal sinuses. CT/Brain/Head without Contrast IMPRESSION: Moderate atrophy and periventricular white matter ischemic change. No evidence for acute bleed. If concern for acute infarct MRI recommended. Electronically Signed: Chace Alcaraz MD at 17:16 EDT , Service support ,
[2019-12-14 15:53] LABS: Absolute Lymphocyte Count 1.64 X10^3/uL (0.83-4.51); Absolute Neutrophil Count 13.1 X10^3/uL (2.0-7.7); Basophil# 0.04 X10^3/uL; Basophil% 0.2 % (0-1); Eosinophil# 0.01 X10^3/uL; Eosinophils% 0.1 % (0-5); Hematocrit 41.6 % (37-47); Hemoglobin 13.3 g/dL (12.0-15.0); Lymphocyte # 1.64 X10^3/ul (4.0); Mean Corpuscular Hgb 33.3 pg (27.0-32.0); Mean Platelet Vol. 11.6 fl (6.2-12.0); Monocyte# 1.45 X10^3/uL; Monocyte% 8.9 % (0-10); NRBC Flagged by Analyzer 0 % (0-5); Neutrophil # 13.05 X10^3/uL (2.7-7.7); Neutrophil % 79.8 % (47-70); Platelet Count 310 K/mm3 (150-450); RBC Distribution Width CV 12.5 % (11.6-14.6); RBC Distribution Width SD 47.4 fl (35.1-43.9); White Blood Count 16.4 K/mm3 (4.4-11.0)
[2019-12-14 16:08] LABS: Anion Gap 11 (5-15); BUN 69 mg/dL (7-18); BUN/Creat Ratio 18.7 RATIO (10-20); Calcium,Total 10.4 mg/dL (8.5-10.1); Chloride 101 mmol/L (98-107); Creatinine, Serum 3.69 mg/dL (0.55-1.02); EST Glomerular Filtration Rate 12 mL/min (>60); Est Glom Filt Rate - Afr Amer 15 mL/min (>60); Estimated Creatinine Clearance 9.98 ml/min; Glucose 59 mg/dL (74-106); Potassium 5.3 mmol/L (3.5-5.1); Sodium Level 135 mmol/L (136-145)
[2019-12-14] MEDS: 0.9% Normal Saline 1,000 ML 1000 ML IV (16:32)
--- NOTE | 2019-12-14 16:55 | RAD_ITS ---
STUDY: X-RAY CHEST REASON FOR EXAM: Female, 83 years old. fall today, increased weakness, mental status change TECHNIQUE: AP portable COMPARISON: August 28, 2015 FINDINGS: Less than optimal inspiratory effort is seen however the lungs are clear. There is tiny calcified granuloma in right lower lobe.. There is no demonstrated pleural abnormality. Normal size heart. Normal mediastinum. Tiny bilateral cruzito calcifications. Normal visualized pulmonary arteries. Tortuous mildly calcified aortic arch and descending thoracic aorta. Dorsal spine and right shoulder demonstrate degenerative changes. There is post operative change involving left shoulder. Normal visualized ribs, and clavicles There are surgical clips seen within the left lateral chest wall There is no demonstrated abnormality of the visualized soft tissue structures of the upper abdomen. RAD/Chest 1 View (Portable) IMPRESSION: Old granulomatous disease. No acute cardiopulmonary pathology Electronically Signed: Chace Alcaraz MD at 17:26 EDT , Service support ,
[2019-12-14 17:00] LABS: Mucous, Urine 0 SEEN /hpf (<or=2+)
[2019-12-14 17:11] LABS: Color, Urine Yellow (Yellow); Glucose, Dipstick Normal (Normal); Ketone-Dipstick 5 mg/dl (Negative); Leukocyte Esterase-Dipstick 500 /ul (Negative); Nitrite-Dipstick Negative (Negative); Occult Blood-Urine 150 /ul (Negative); Protein-Dipstick 30 mg/dl (Negative); Urine Bilirubin Dipstick Negative (Negative); Urine Clarity Cloudy (Clear); Urine Urobilinogen Normal (Normal)
[2019-12-14 17:46] LABS: Amorphous Sediment 1+; Bacteria 3+ /hpf (None Seen); Red Blood Cells-Urine 0-5 SEEN /hpf (0-5); Squamous Epithelial Cells - UA 0-5 SEEN /hpf (5-10); White Blood Cells 5-10 SEEN /hpf (0-5)
[2019-12-14 18:03] LABS: Lactic Acid 1.7 mmol/L (0.4-1.9)
[2019-12-14] MEDS: Ceftriaxone 1 GM/50 ML BAG IV (19:06)
--- NOTE | 2019-12-14 19:17 | ED.RN ---
SKIN BREAKDOWN NOTED TO BUTTOCKS. REDNESS, DISCOLORATION, AND OPEN AREAS NOTED.
--- NOTE | 2019-12-14 19:39 | ED.RN ---
ED CHART IN THE CARE OF DR CARTWRIGHT AT THE TIME OF PT DEPARTURE
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
[2019-12-14] MEDS: 0.9% Normal Saline 1,000 ML 150 ML IV (21:11)
[2019-12-14] MEDS: Dextrose 50%-Water 25 GM/50 ML DISP.SYRIN IV (21:56)
--- NOTE | 2019-12-14 22:07 | PCM.PN.BLA ---
Progress Note Called for patient whose BS is 27. New admit from [place]. Patient did not eat at dinner. Insulin not given here Plan: Treat with D50 Recheck BS in 15 mins Stop Lantus and pre-meal insulin Switch from NS to D5Ns Accuchecks Q6h STROKE Vital Signs/Narrative: Vital Signs Temp Pulse Resp BP Pulse Ox 12/14/19 19:58 98.1 F 70 18 128/68 H 100 12/14/19 19:21 98.2 F 82 16 102/58 L 99 12/14/19 19:00 98.2 F 84 16 102/58 L 98
[2019-12-14] MEDS: Dextrose 5%/0.9% NaCl 1,000 ML 150 ML IV (22:31)
[2019-12-14] MEDS: Heparin Injection (Vial) 5,000 UNIT/ML VIAL 5000 UNIT SC (22:31)
[2019-12-14 22:50] LABS: Bedside Glucose 27 mg/dL (70-110)
[2019-12-14 22:50] LABS: Bedside Glucose 250 mg/dL (70-110)
[2019-12-14 23:05] LABS: Glucose 175 mg/dL (74-106)
[2019-12-14] MEDS: Menthol/Lanolin/Calamine/Znox 113 GM Tube 1 APPLIC TOPICAL (23:50)
[2019-12-15 02:36] VITALS: BP 110/50; PULSE 73; RESP 20; TEMP 36.8; O2SAT 98
[2019-12-15 03:22] LABS: Urea Nitrogen, Urine 325 mg/dL (NO RANGE EST.)
[2019-12-15 06:01] LABS: Bedside Glucose 146 mg/dL (70-110)
[2019-12-15 07:13] LABS: Absolute Lymphocyte Count 1.47 X10^3/uL (0.83-4.51); Absolute Neutrophil Count 8.6 X10^3/uL (2.0-7.7); Basophil# 0.02 X10^3/uL; Basophil% 0.2 % (0-1); Eosinophil# 0.03 X10^3/uL; Eosinophils% 0.3 % (0-5); Hematocrit 36.8 % (37-47); Hemoglobin 11.8 g/dL (12.0-15.0); Lymphocyte # 1.47 X10^3/ul (4.0); Mean Corp Hgb Conc 32.1 g/dL (32-36); Mean Corpuscular Hgb 33.7 pg (27.0-32.0); Mean Corpuscular Volume 105.1 fL (81-99); Mean Platelet Vol. 11.3 fl (6.2-12.0); Monocyte# 1.11 X10^3/uL; Monocyte% 9.8 % (0-10); NRBC Flagged by Analyzer 0 % (0-5); Neutrophil # 8.61 X10^3/uL (2.7-7.7); Neutrophil % 76.2 % (47-70); Platelet Count 218 K/mm3 (150-450); RBC Distribution Width CV 12.4 % (11.6-14.6); RBC Distribution Width SD 47.9 fl (35.1-43.9); White Blood Count 11.3 K/mm3 (4.4-11.0)
[2019-12-15] MEDS: Menthol/Lanolin/Calamine/Znox 113 GM Tube 1 APPLIC TOPICAL ×3 (07:23→21:51)
[2019-12-15 07:39] LABS: Anion Gap 8 (5-15); BUN 62 mg/dL (7-18); BUN/Creat Ratio 20.1 RATIO (10-20); Calcium,Total 9.1 mg/dL (8.5-10.1); Chloride 109 mmol/L (98-107); Creatinine, Serum 3.09 mg/dL (0.55-1.02); EST Glomerular Filtration Rate 15 mL/min (>60); Est Glom Filt Rate - Afr Amer 19 mL/min (>60); Estimated Creatinine Clearance 11.91 ml/min; Glucose 123 mg/dL (74-106); Potassium 4.5 mmol/L (3.5-5.1); Sodium Level 138 mmol/L (136-145)
[2019-12-15 08:35] VITALS: BP 114/42; PULSE 76; RESP 16; TEMP 36.4; O2SAT 96
--- NOTE | 2019-12-15 10:30 | CASEMGMT ---
CJ LEÓN Note: Per demographics patient is from [facility]. RN ROMELIA called [facility] and verified that patient is in Assisted Living. Per Cece at [facility], brother Gamal is list as contact. CJ LEÓN called brother Gamal Prabhakar and discussed discharge planning. Gamal states that [facility] is HPOA. CJ LEÓN called buck Castano and discussed discharge planning. Reviewed therapy notes with son that patient is requiring 2 person assistance to transfers and ambulation. CJ LEÓN discussed that patient may required more assistance and therapy than what assisted living can provided. Buck Castano agreeable to SNF at discharge and request referral be made to [facility] SNF. CJ LEÓN updated LUANN Gray
[2019-12-15] MEDS: amLODIPine 5 MG Tablet PO (10:57)
[2019-12-15] MEDS: Heparin Injection (Vial) 5,000 UNIT/ML VIAL 5000 UNIT SC ×2 (10:57→21:50)
--- NOTE | 2019-12-15 11:06 | CASEMGMT ---
Addendum entered by Eve Becker 12/15/19 12:24: SW spoke w/Cece, pt is covered at 92% for [facility] until she reaches out of pocket of $2500, then she is covered at 100%, subject to precert. Cece also states pt cannot return to assisted living at this time. She also explained that pt's brother has always been the contact, and just today they brought in POA papers stating the son Eyad is the medical POA. SW called son, explained pt cannot return to assisted living at this time, explained the insurance benefits to go to the skilled facility, and that it is subject to precert. Son states understanding. SW inquired if he wanted to consider any other facilities that are in network, he states no, pt has been there for a while and so would like her to go to [facility] skilled. SW explained we may not hear from insurance today, SW will call only if we hear back from insurance, otherwise will follow up on Wednesday. Son states understanding. SW called Cece back at [facility], asked her to start precert. KRISTA Blankenship Original Note: LUANN faxed referral to [facility]. SW called Cece and left a message, asking her to review the referral and see if pt would be able to return to assisted living, if not, can she come skilled and does she have out of network benefits. LUANN will continue to follow, waiting for a call back. KRISTA Blankenship
[2019-12-15 12:30] LABS: Bedside Glucose 97 mg/dL (70-110)
--- NOTE | 2019-12-15 13:31 | NURSING ---
UPDATE CALLED TO GABE DUBOSE, PTS BROTHER
[2019-12-15 14:25] VITALS: BP 111/48; PULSE 89; RESP 18; TEMP 36.7; O2SAT 97
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
[2019-12-15 17:15] LABS: Bedside Glucose 122 mg/dL (70-110)
[2019-12-15] MEDS: Lactated Ringers 1,000 ML 75 ML IV (17:16)
[2019-12-15] MEDS: 0.9% Saline Lock 10 ML Syringe IV (17:16)
[2019-12-15] MEDS: prednisoLONE eye drops (5 mL) 1 DROP OPTH.BTL 1 DRP EACH EYE ×2 (17:28→21:51)
[2019-12-15] MEDS: NYSTATIN 500,000 UNIT/5 ML UDC 500000 UNIT PO ×2 (17:28→21:50)
[2019-12-15 20:39] VITALS: BP 123/53; PULSE 94; RESP 18; TEMP 36.6; O2SAT 97
[2019-12-15] MEDS: Ceftriaxone 1 GM/50 ML BAG IV (21:52)
[2019-12-15 22:05] LABS: Bedside Glucose 116 mg/dL (70-110)
[2019-12-16 02:22] VITALS: BP 113/53; PULSE 91; RESP 18; TEMP 36.6; O2SAT 98
[2019-12-16] MEDS: Menthol/Lanolin/Calamine/Znox 113 GM Tube 1 APPLIC TOPICAL ×3 (06:14→21:02)
[2019-12-16] MEDS: Lactated Ringers 1,000 ML 75 ML IV ×2 (06:15→19:05)
[2019-12-16 06:31] LABS: Bedside Glucose 95 mg/dL (70-110)
[2019-12-16 08:00] LABS: Absolute Lymphocyte Count 1.58 X10^3/uL (0.83-4.51); Absolute Neutrophil Count 6.7 X10^3/uL (2.0-7.7); Basophil# 0.02 X10^3/uL; Basophil% 0.2 % (0-1); Eosinophil# 0.09 X10^3/uL; Hematocrit 39.4 % (37-47); Hemoglobin 12.3 g/dL (12.0-15.0); Lymphocyte # 1.58 X10^3/ul (4.0); Lymphocyte % 17.1 % (19-41); Mean Corp Hgb Conc 31.2 g/dL (32-36); Mean Corpuscular Volume 105.6 fL (81-99); Mean Platelet Vol. 11.9 fl (6.2-12.0); Monocyte# 0.77 X10^3/uL; Monocyte% 8.4 % (0-10); NRBC Flagged by Analyzer 0 % (0-5); Neutrophil # 6.69 X10^3/uL (2.7-7.7); Neutrophil % 72.5 % (47-70); Platelet Count 206 K/mm3 (150-450); RBC Distribution Width CV 12.3 % (11.6-14.6); Red Blood Count 3.73 M/mm3 (4.2-5.4); White Blood Count 9.2 K/mm3 (4.4-11.0)
[2019-12-16 08:02] VITALS: BP 108/88; PULSE 78; RESP 16; TEMP 36.5; O2SAT 96
[2019-12-16 08:33] LABS: Anion Gap 9 (5-15); BUN 52 mg/dL (7-18); BUN/Creat Ratio 23.3 RATIO (10-20); Calcium,Total 9.7 mg/dL (8.5-10.1); Chloride 107 mmol/L (98-107); Creatinine, Serum 2.23 mg/dL (0.55-1.02); EST Glomerular Filtration Rate 22 mL/min (>60); Est Glom Filt Rate - Afr Amer 27 mL/min (>60); Estimated Creatinine Clearance 16.51 ml/min; Glucose 100 mg/dL (74-106); Magnesium 1.8 mg/dL (1.6-2.6); Phosphorus 2.7 mg/dL (2.5-4.9); Potassium 4.4 mmol/L (3.5-5.1); Sodium Level 139 mmol/L (136-145)
[2019-12-16 09:16] LABS: Hemoglobin A1c 5.1 % (3.8-5.6)
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
[2019-12-16] MEDS: prednisoLONE eye drops (5 mL) 1 DROP OPTH.BTL 1 DRP EACH EYE ×4 (10:43→21:02)
[2019-12-16] MEDS: amLODIPine 5 MG Tablet PO (10:45)
[2019-12-16] MEDS: Heparin Injection (Vial) 5,000 UNIT/ML VIAL 5000 UNIT SC ×2 (10:45→21:03)
[2019-12-16] MEDS: NYSTATIN 500,000 UNIT/5 ML UDC 500000 UNIT PO ×4 (10:45→21:12)
[2019-12-16 11:16] LABS: Bedside Glucose 119 mg/dL (70-110)
[2019-12-16 11:40] VITALS: BP 113/38; PULSE 74; RESP 16; TEMP 36.8; O2SAT 99
[2019-12-16] MEDS: Citalopram 10 MG Tablet PO (12:36)
[2019-12-16 14:31] VITALS: BP 125/48; PULSE 79; RESP 16; TEMP 36.8; O2SAT 97
[2019-12-16 16:26] LABS: Bedside Glucose 128 mg/dL (70-110)
[2019-12-16 20:47] VITALS: BP 100/49; PULSE 82; RESP 16; TEMP 36.9; O2SAT 98
[2019-12-16] MEDS: Ceftriaxone 1 GM/50 ML BAG IV (21:11)
[2019-12-16] MEDS: Memantine Hydrochloride 10 MG Tablet PO (21:12)
[2019-12-16] MEDS: Donepezil HCl 10 MG Tablet PO (21:12)
[2019-12-16] MEDS: Insulin Lispro 100 UNIT/ML INSULN.PEN SC (21:48)
[2019-12-16 21:50] LABS: Bedside Glucose 171 mg/dL (70-110)
[2019-12-17] VITALS (7 sets, daily range): BP systolic 100–118; BP diastolic 47–56; PULSE 65–83; RESP 16–20; TEMP 36.6–37.1; O2SAT 96–100
[2019-12-17] MEDS: Menthol/Lanolin/Calamine/Znox 113 GM Tube 1 APPLIC TOPICAL ×3 (06:00→21:59)
[2019-12-17 06:40] LABS: Bedside Glucose 97 mg/dL (70-110)
[2019-12-17 07:40] LABS: Absolute Neutrophil Count 5.5 X10^3/uL (2.0-7.7); Basophil# 0.02 X10^3/uL; Basophil% 0.3 % (0-1); Eosinophil# 0.11 X10^3/uL; Eosinophils% 1.4 % (0-5); Hematocrit 35.4 % (37-47); Hemoglobin 11.4 g/dL (12.0-15.0); Mean Corp Hgb Conc 32.2 g/dL (32-36); Mean Corpuscular Hgb 32.9 pg (27.0-32.0); Mean Corpuscular Volume 102.3 fL (81-99); Mean Platelet Vol. 11.3 fl (6.2-12.0); Monocyte# 0.73 X10^3/uL; Monocyte% 9.4 % (0-10); NRBC Flagged by Analyzer 0 % (0-5); Neutrophil # 5.46 X10^3/uL (2.7-7.7); Neutrophil % 70.3 % (47-70); Platelet Count 188 K/mm3 (150-450); RBC Distribution Width CV 12.3 % (11.6-14.6); RBC Distribution Width SD 45.7 fl (35.1-43.9); Red Blood Count 3.46 M/mm3 (4.2-5.4); White Blood Count 7.8 K/mm3 (4.4-11.0)
[2019-12-17 07:53] LABS: Anion Gap 6 (5-15); BUN 38 mg/dL (7-18); BUN/Creat Ratio 24.5 RATIO (10-20); Calcium,Total 9.4 mg/dL (8.5-10.1); Chloride 110 mmol/L (98-107); Creatinine, Serum 1.55 mg/dL (0.55-1.02); EST Glomerular Filtration Rate 34 mL/min (>60); Est Glom Filt Rate - Afr Amer 41 mL/min (>60); Estimated Creatinine Clearance 23.33 ml/min; Glucose 116 mg/dL (74-106); Potassium 4.3 mmol/L (3.5-5.1); Sodium Level 141 mmol/L (136-145)
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
[2019-12-17 08:36] LABS: Eosinophil Ct. Urine No Eosinophils Seen % (.)
[2019-12-17] MEDS: Citalopram 10 MG Tablet PO (09:27)
[2019-12-17] MEDS: Memantine Hydrochloride 10 MG Tablet PO ×2 (09:28→21:58)
[2019-12-17] MEDS: amLODIPine 5 MG Tablet PO (09:37)
[2019-12-17] MEDS: Heparin Injection (Vial) 5,000 UNIT/ML VIAL 5000 UNIT SC ×2 (10:05→21:59)
[2019-12-17] MEDS: NYSTATIN 500,000 UNIT/5 ML UDC 500000 UNIT PO ×4 (10:06→21:59)
[2019-12-17] MEDS: prednisoLONE eye drops (5 mL) 1 DROP OPTH.BTL 1 DRP EACH EYE ×4 (10:08→21:58)
[2019-12-17] MEDS: Insulin Lispro 100 UNIT/ML INSULN.PEN SC ×2 (12:57→17:08)
[2019-12-17 13:11] LABS: Bedside Glucose 155 mg/dL (70-110)
[2019-12-17 17:16] LABS: Bedside Glucose 157 mg/dL (70-110)
[2019-12-17] MEDS: Donepezil HCl 10 MG Tablet PO (21:58)
[2019-12-17] MEDS: Ceftriaxone 1 GM/50 ML BAG IV (22:08)
[2019-12-17 22:10] LABS: Bedside Glucose 134 mg/dL (70-110)
[2019-12-18 03:35] VITALS: BP 100/51; PULSE 77; RESP 18; TEMP 37.2; O2SAT 97
[2019-12-18 06:29] LABS: Anion Gap 6 (5-15); BUN 32 mg/dL (7-18); BUN/Creat Ratio 23.2 RATIO (10-20); Chloride 109 mmol/L (98-107); Creatinine, Serum 1.38 mg/dL (0.55-1.02); EST Glomerular Filtration Rate 39 mL/min (>60); Est Glom Filt Rate - Afr Amer 47 mL/min (>60); Glucose 125 mg/dL (74-106); Potassium 4.1 mmol/L (3.5-5.1); Sodium Level 141 mmol/L (136-145)
[2019-12-18] MEDS: Menthol/Lanolin/Calamine/Znox 113 GM Tube 1 APPLIC TOPICAL ×2 (06:32→12:03)
[2019-12-18 06:40] LABS: Bedside Glucose 117 mg/dL (70-110)
[2019-12-18 09:18] VITALS: BP 109/52; PULSE 85; RESP 16; TEMP 37.1; O2SAT 100
[2019-12-18] MEDS: prednisoLONE eye drops (5 mL) 1 DROP OPTH.BTL 1 DRP EACH EYE ×2 (09:21→15:39)
[2019-12-18] MEDS: Citalopram 10 MG Tablet PO (09:21)
[2019-12-18] MEDS: Memantine Hydrochloride 10 MG Tablet PO (09:22)
[2019-12-18] MEDS: amLODIPine 5 MG Tablet PO (09:22)
[2019-12-18] MEDS: NYSTATIN 500,000 UNIT/5 ML UDC 500000 UNIT PO (09:22)
[2019-12-18] MEDS: Heparin Injection (Vial) 5,000 UNIT/ML VIAL 5000 UNIT SC (09:23)
--- NOTE | 2019-12-18 09:30 | CASEMGMT ---
Social Work Note LUANN faxed updated clinicals to Cece at [facility]. LUANN wrote on fax cover sheet that pt is medically cleared once pre-cert is obtained. Plan: [facility] pending pre-cert Naila Bryan MOBILE PRACTICE LEAD, PHONE COUNSELOR
--- NOTE | 2019-12-18 10:19 | TREXTCAR_ITS ---
- Diet 12/16/19 11:57 Diet: Regular Diet Food consistency:: Puree Liquid Consistency:: Regular/Thin Is pt able to select menu?: No Diet Comments: 1:1 supervised; TOTAL FEED; liquids by straw; hold if not alert - Routine Orders/Code Status [facility] - Wound(s) right side coccyx Wound Type: Pressure Injury - Therapies Physical Therapy: Eval and Treat Occupational Therapy: Eval and Treat - Allergies/Procedures Done in Hospital Allergies/Adverse Reactions: Allergies atorvastatin [From Lipitor] Adverse Reaction (Verified 12/14/19 14:48) myalgia metformin Adverse Reaction (Verified 12/14/19 14:48) Diarrhea nitrofurantoin [From Macrobid] Adverse Reaction (Verified 12/14/19 14:48) Other Headaches years ago nitrofurantoin macrocrystalline [From Macrobid] Adverse Reaction (Verified 12/14/19 14:48) headache quinine Adverse Reaction (Verified 12/14/19 14:48) Unknown Sulfa (Sulfonamide Antibiotics) Adverse Reaction (Verified 12/14/19 14:48) headaches - Type of Care/Length of Stay Estimated LOS: Convalescent Care Less Than 30 days Type of Care Needed: Skilled Rehab Potential: Fair Prognosis: Fair - Additional Orders/Day of Discharge Day of Discharge: 12/18/19 - Dietary and Speech Recommendations Dietitian Recommendations/Changes: Will change diet to regular d/t suspected malnutrition. Will fortify foods. Will add ensure or magic cup w/ meals. Speech Linguistic Eval Summary: Pt cooperative with flat affect noted to stare past [employer] with occasional and brief eye contact. Limited cognitive assessment this date due to pt's limited responses. Pt able to provide full name and . Reoriented to location and reason for admission. Pt able to follow single, simple verbal directions with repetition. Pt poor historian due to limited expressive language. Pt familiar to [facility] [employer] department from TCU admission in February 2019. At that time pt was seen for memory changes and decreased ji entation. Per physician H and P, pt was seen by [facility] at assisted living prior to this [facility] admission. Will recommend further cognitive assessment as able. - Follow Up Care Primary Care Physician: Kasi Black III, MD [Primary Care Provider] -
--- NOTE | 2019-12-18 11:45 | CASEMGMT ---
Social Work Note SW received message from Cece at [facility] stating pre-cert was denied. Cece provided peer to peer number [phone]. LUANN updated physician on denial and peer to peer. Physician agreeable to peer to peer. LUANN placed a call to Robby and scheduled peer to peer. LUANN placed a call to Cece at [facility] and updated her that physician is agreeable to peer to peer, will call with update once peer to peer is completed. Cece states understanding. Naila Bryan CONTRACT ADMINISTRATION COORDINATOR, REFRIGERATED CARGO CLERK
[2019-12-18 11:55] LABS: Bedside Glucose 159 mg/dL (70-110)
[2019-12-18] MEDS: Insulin Lispro 100 UNIT/ML INSULN.PEN SC (12:03)
--- NOTE | 2019-12-18 14:39 | DS.PCM_ITS ---
Discharge Date and Diagnosis - Problem List Patient Problems: Active and Suspected Problems (Last Reviewed 10/15/17 @ 09:54 by Jaleel Burciaga) KATHY (acute kidney injury) (Acute) UTI (urinary tract infection) (Acute) Metabolic encephalopathy (Acute) Date of Admission: 12/14/19 Date of Discharge: 12/18/19 - Primary Discharge Diagnosis Acute Problems: Active Problems (Last Reviewed 10/15/17 @ 09:54 by Jaleel Burciaga) KATHY (acute kidney injury) (Acute) UTI (urinary tract infection) (Acute) Metabolic encephalopathy (Acute) - Secondary Discharge Diagnosis Chronic Problems: Chronic Problems (Last Reviewed 10/15/17 @ 09:54 by Jaleel Burciaga) Lymphedema (Chronic) Cognitive impairment (Chronic) Failure to thrive (Chronic) Anemia (Chronic) Mild cognitive impairment (Chronic) Osteoporosis (Chronic) Dysphagia (Chronic) Debility (Chronic) Bilateral lower extremity edema (Chronic) Diabetes mellitus, type 2 (Chronic) Dyslipidemia (Chronic) Compression fracture of L1 lumbar vertebra (Chronic) GERD (gastroesophageal reflux disease) (Chronic) HTN (hypertension) (Chronic) Choledocholithiasis with obstruction (Chronic) Diverticulosis (Chronic) Hx of hyperparathyroidism (Chronic) Osteoarthritis (Chronic) History of compression fracture of vertebral column (Chronic) Osteoarthritis of right knee (Chronic) Hyperlipidemia (Chronic) Breast cancer (Chronic) Vitamin D deficiency (Chronic) Constipation (Chronic) Diabetes mellitus (Chronic) Depression (Chronic) Nausea (Chronic) Hospital Course and Treatment Operations: None Summary of Care Provided: The patient is a 84 year old F [] Patient Problems: Active and Suspected Problems (Last Reviewed 10/15/17 @ 09:54 by Jaleel Burciaga) KATHY (acute kidney injury) (Acute) UTI (urinary tract infection) (Acute) Metabolic encephalopathy (Acute) - Physical Exam Vitals/I&O's: Vital Signs Temp Pulse Resp BP Pulse Ox 98.8 F 85 16 109/52 L 100 12/18/19 09:18 12/18/19 09:18 12/18/19 09:18 12/18/19 09:18 12/18/19 09:18 Oxygen Delivery Method Room Air Weight: 60.7 kg Body Mass Index (BMI) 22.9 Finger Stick Blood Glucose 91 Intake and Output for Last 24 Hours 12/16/19 12/17/19 12/18/19 23:59 23:59 23:59 Intake Total 2867.25 / 2867.25 1502.5 / 1502.5 460 / 460 Balance 2867.25 / 2867.25 1502.5 / 1502.5 460 / 460 Microbiology Past 72 Hours 12/14/19 16:15 Blood Culture (Wb) - Anticubital Left Blood Culture - Preliminary No growth in 48 hours. 12/14/19 15:20 Blood Culture (Wb) - Anticubital Right Blood Culture - Preliminary No growth in 48 hours. 12/14/19 16:44 Urine, Random Urine Culture - Final Presumptive E. coli Laboratory Results 12/17/19 17:06: POC Glucose 157 H 12/17/19 21:54: POC Glucose 134 H 12/18/19 05:46: Sodium 141, Potassium 4.1, Chloride 109 H, Carbon Dioxide 26.0, Anion Gap 6, BUN 32 H, Creatinine 1.38 H, Estim Creat Clear Calc 26.20, Est GFR (MDRD) Af Amer 47 L, Est GFR (MDRD) Non-Af 39 L, BUN/Creatinine Ratio 23.2 H, Glucose 125 H, Calcium 9.0 12/18/19 06:25: POC Glucose 117 H 12/18/19 11:31: POC Glucose 159 H Current Medications Acetaminophen (Tylenol) 650 mg PO Q6H PRN PRN PRN Reason: Pain Score 1-10/Temp > 100.7 F Amlodipine Besylate (Norvasc) 5 mg PO DAILY [facility] Last Admin: 12/18/19 09:22 Dose: 5 mg Documented by: Artificial Tears (Tears Naturale, Artificial Tears) 2 drop EACH EYE Q1H PRN PRN PRN Reason: DRY EYES Artificial Tears (Tears Naturale, Artificial Tears) 1 drop OPHTHALMIC BID [facility] Last Admin: 12/18/19 09:22 Dose: 1 drop Documented by: Azelastine HCl (Astelin) 2 spray NASAL BID PRN PRN PRN Reason: nasal drainage Calamine/Phenol (Calmoseptine Ointment) 1 applic TOPICAL TID [facility]; Protocol Last Admin: 12/18/19 12:03 Dose: 1 applic Documented by: Calcium Polycarbophil (Fibercon) 625 mg PO BID [facility] Last Admin: 12/18/19 09:22 Dose: 625 mg Documented by: Cholecalciferol (Vitamin D (25mcg)) 2,000 unit PO DAILY [facility] Last Admin: 12/18/19 09:21 Dose: 2,000 unit Documented by: Citalopram Hydrobromide (Celexa) 10 mg PO DAILY [facility] Last Admin: 12/18/19 09:21 Dose: 10 mg Documented by: Dextrose (D50w Syringe) 0 gm IV X1 PRN; Protocol PRN Reason: Hypoglycemia Last Admin: 12/14/19 21:56 Dose: 25 gm Documented by: Donepezil HCl (Aricept) 10 mg PO QHS [facility] Last Admin: 12/17/19 21:58 Dose: 10 mg Documented by: Glucagon () 1 mg IM .X1 PRN PRN Reason: Hypoglycemia Heparin Sodium (Porcine) (Heparin Na) 5,000 unit SC Q12 [facility] Last Admin: 12/18/19 09:23 Dose: 5,000 unit Documented by: Sodium Chloride () 250 mls @ 15 mls/hr IV .[id number] PRN PRN Reason: Saline Flush Last Infusion: 12/16/19 11:57 Dose: 0 mls/hr Documented by: Sodium Chloride () 250 mls @ 15 mls/hr IV .[id number] PRN PRN Reason: Additional IVPB Infusion Ceftriaxone Sodium (Rocephin) 1 gm in 50 mls @ 100 mls/hr IV Q24@2200 [facility] Last Infusion: 12/17/19 22:39 Dose: Infused Documented by: Insulin Human Lispro (Humalog Kwikpen (Bkc)) 0 unit SC ACHS [facility]; Protocol Last Admin: 12/18/19 12:03 Dose: 1 units Documented by: Memantine (Namenda) 10 mg PO BID [facility] Last Admin: 12/18/19 09:22 Dose: 10 mg Documented by: Multi-Ingredient Cream (Eucerin) 1 applic TOPICAL BID [facility]; Protocol Last Admin: 12/18/19 09:23 Dose: 1 applic Documented by: Nystatin (Nystatin) 500,000 unit PO 4X/DAY [facility] Last Admin: 12/18/19 09:22 Dose: 500,000 unit Documented by: Prednisolone Acetate (Pred Forte Eye Drops (5 Ml)) 1 drop EACH EYE 4X/DAY [facility] Last Admin: 12/18/19 09:21 Dose: 1 drop Documented by: Sodium Chloride () 10 - 40 ml IV UD PRN PRN Reason: SALINE FLUSH Last Admin: 12/15/19 17:16 Dose: 10 ml Documented by: Home Medications: Medications to take at Discharge Vit A/Vit C/Vit E/Zinc/Copper [Preservision Areds Softgel] 1 ea PO BID 09/29/16 Amlodipine [Norvasc] 5 mg PO DAILY 06/04/17 Cholecalciferol (VIT D3) [Vitamin D3] 2,000 unit PO DAILY 02/06/19 Fluorometholone [Fml] 1 drp EACH EYE BID 02/06/19 Polyvinyl Alcohol/Povidone/Pf [Refresh Classic Eye Drops] 1 - 2 drp OP BID 02/06/19 Peg 400/Hypromellose/Glycerin [Artificial Tears] 2 drp EACH EYE Q1H PRN bottle 02/23/19 Acetaminophen [Tylenol] 650 mg PO Q4H PRN PRN 12/14/19 Azelastine HCl 2 spray NS BID PRN PRN 12/14/19 Calcium Polycarbophil [Fibercon] 625 mg PO BID 12/14/19 Donepezil HCl [Aricept] 10 mg PO QHS 12/14/19 Memantine Hydrochloride [Namenda] 10 mg PO BID 12/14/19 Mineral Oil/Petrolatum,White [Eucerin] 1 applic TOPICAL BID 12/14/19 buPROPion XL [Wellbutrin Xl] 300 mg PO DAILY 12/14/19 Citalopram [Celexa] 10 mg PO DAILY #0 12/18/19 Glucagon 1 mg IM .X1 PRN syringe 12/18/19 Insulin Glargine [Lantus SoloStar Pen] 10 units SUBCUT DAILY #0 12/18/19 Insulin Lispro [Humalog KwikPen] See Protocol SUBCUT ACHS insuln.pen 12/18/19 Primary Care Physician: Kasi Black III, MD [Primary Care Provider] - Medical Necessity - Tobacco Use Smoking Status: Never smoker
--- NOTE | 2019-12-18 14:43 | DS.PCM_ITS ---
Discharge Date and Diagnosis - Problem List Patient Problems: Active and Suspected Problems (Last Reviewed 10/15/17 @ 09:54 by Jaleel Burciaga) KATHY (acute kidney injury) (Acute) UTI (urinary tract infection) (Acute) Metabolic encephalopathy (Acute) Date of Admission: 12/14/19 Date of Discharge: 12/18/19 - Primary Discharge Diagnosis Acute Problems: Active Problems (Last Reviewed 10/15/17 @ 09:54 by Jaleel Burciaga) KATHY (acute kidney injury) (Acute) UTI (urinary tract infection) (Acute) Metabolic encephalopathy (Acute) - Secondary Discharge Diagnosis Chronic Problems: Chronic Problems (Last Reviewed 10/15/17 @ 09:54 by Jaleel Burciaga) Lymphedema (Chronic) Cognitive impairment (Chronic) Failure to thrive (Chronic) Anemia (Chronic) Mild cognitive impairment (Chronic) Osteoporosis (Chronic) Dysphagia (Chronic) Debility (Chronic) Bilateral lower extremity edema (Chronic) Diabetes mellitus, type 2 (Chronic) Dyslipidemia (Chronic) Compression fracture of L1 lumbar vertebra (Chronic) GERD (gastroesophageal reflux disease) (Chronic) HTN (hypertension) (Chronic) Choledocholithiasis with obstruction (Chronic) Diverticulosis (Chronic) Hx of hyperparathyroidism (Chronic) Osteoarthritis (Chronic) History of compression fracture of vertebral column (Chronic) Osteoarthritis of right knee (Chronic) Hyperlipidemia (Chronic) Breast cancer (Chronic) Vitamin D deficiency (Chronic) Constipation (Chronic) Diabetes mellitus (Chronic) Depression (Chronic) Nausea (Chronic) Hospital Course and Treatment Operations: None Summary of Care Provided: The patient is a 84 year old F admitted with altered mental status 1. Altered mental status secondary to acute metabolic encephalopathy from renal failure and UTI 2. Acute kidney injury superimposed on chronic kidney disease stage III ?Patient managed with IV fluids. Kidney function did improve. Was on both AASHISH inhibitors and Lasix discontinued on discharge 3. Acute cystitis with E. coli ?Patient managed with Rocephin for 3 days 4. Physical deconditioning - Requested for PT OT eval and health and social care teacher to assist with discharge planning 5. Diabetes mellitus type 2 with complications including hypoglycemia ?Patient long-acting insulin held during his admission dose was adjusted on discharge 6. Dysphagia -continue modified diet 7. Hypertension ?Patient AASHISH inhibitor is discontinued on discharge 8. Dementia ?Patient is on both Aricept and Namenda did continue Patient Problems: Active and Suspected Problems (Last Reviewed 10/15/17 @ 09:54 by Jaleel Burciaga) KATHY (acute kidney injury) (Acute) UTI (urinary tract infection) (Acute) Metabolic encephalopathy (Acute) - Physical Exam Vitals/I&O's: Vital Signs Temp Pulse Resp BP Pulse Ox 98.8 F 85 16 109/52 L 100 12/18/19 09:18 12/18/19 09:18 12/18/19 09:18 12/18/19 09:18 12/18/19 09:18 Oxygen Delivery Method Room Air Weight: 60.7 kg Body Mass Index (BMI) 22.9 Finger Stick Blood Glucose 91 Intake and Output for Last 24 Hours 12/16/19 12/17/19 12/18/19 23:59 23:59 23:59 Intake Total 2867.25 / 2867.25 1502.5 / 1502.5 460 / 460 Balance 2867.25 / 2867.25 1502.5 / 1502.5 460 / 460 General: Cooperative Neck: Supple Lungs: Diminished Cardiovascular: Regular rate, Regular Rhythm Psych/Mental Status: Normal Affect Microbiology Past 72 Hours 12/14/19 16:15 Blood Culture (Wb) - Anticubital Left Blood Culture - Preliminary No growth in 48 hours. 12/14/19 15:20 Blood Culture (Wb) - Anticubital Right Blood Culture - Preliminary No growth in 48 hours. 12/14/19 16:44 Urine, Random Urine Culture - Final Presumptive E. coli Laboratory Results 12/17/19 17:06: POC Glucose 157 H 12/17/19 21:54: POC Glucose 134 H 12/18/19 05:46: Sodium 141, Potassium 4.1, Chloride 109 H, Carbon Dioxide 26.0, Anion Gap 6, BUN 32 H, Creatinine 1.38 H, Estim Creat Clear Calc 26.20, Est GFR (MDRD) Af Amer 47 L, Est GFR (MDRD) Non-Af 39 L, BUN/Creatinine Ratio 23.2 H, Glucose 125 H, Calcium 9.0 12/18/19 06:25: POC Glucose 117 H 12/18/19 11:31: POC Glucose 159 H Current Medications Acetaminophen (Tylenol) 650 mg PO Q6H PRN PRN PRN Reason: Pain Score 1-10/Temp > 100.7 F Amlodipine Besylate (Norvasc) 5 mg PO DAILY FELIZ Last Admin: 12/18/19 09:22 Dose: 5 mg Documented by: Artificial Tears (Tears Naturale, Artificial Tears) 2 drop EACH EYE Q1H PRN PRN PRN Reason: DRY EYES Artificial Tears (Tears Naturale, Artificial Tears) 1 drop OPHTHALMIC BID ON LICENSE OF [facility] Last Admin: 12/18/19 09:22 Dose: 1 drop Documented by: Azelastine HCl (Astelin) 2 spray NASAL BID PRN PRN PRN Reason: nasal drainage Calamine/Phenol (Calmoseptine Ointment) 1 applic TOPICAL TID ON LICENSE OF [facility]; Protocol Last Admin: 12/18/19 12:03 Dose: 1 applic Documented by: Calcium Polycarbophil (Fibercon) 625 mg PO BID ON LICENSE OF [facility] Last Admin: 12/18/19 09:22 Dose: 625 mg Documented by: Cholecalciferol (Vitamin D (25mcg)) 2,000 unit PO DAILY ON LICENSE OF [facility] Last Admin: 12/18/19 09:21 Dose: 2,000 unit Documented by: Citalopram Hydrobromide (Celexa) 10 mg PO DAILY ON LICENSE OF [facility] Last Admin: 12/18/19 09:21 Dose: 10 mg Documented by: Dextrose (D50w Syringe) 0 gm IV X1 PRN; Protocol PRN Reason: Hypoglycemia Last Admin: 12/14/19 21:56 Dose: 25 gm Documented by: Donepezil HCl (Aricept) 10 mg PO QHS ON LICENSE OF [facility] Last Admin: 12/17/19 21:58 Dose: 10 mg Documented by: Glucagon () 1 mg IM .X1 PRN PRN Reason: Hypoglycemia Heparin Sodium (Porcine) (Heparin Na) 5,000 unit SC Q12 ON LICENSE OF [facility] Last Admin: 12/18/19 09:23 Dose: 5,000 unit Documented by: Sodium Chloride () 250 mls @ 15 mls/hr IV .[id number] PRN PRN Reason: Saline Flush Last Infusion: 12/16/19 11:57 Dose: 0 mls/hr Documented by: Sodium Chloride () 250 mls @ 15 mls/hr IV .[id number] PRN PRN Reason: Additional IVPB Infusion Ceftriaxone Sodium (Rocephin) 1 gm in 50 mls @ 100 mls/hr IV Q24@2200 ON LICENSE OF [facility] Last Infusion: 12/17/19 22:39 Dose: Infused Documented by: Insulin Human Lispro (Humalog Kwikpen (Bkc)) 0 unit SC ACHS ON LICENSE OF [facility]; Protocol Last Admin: 12/18/19 12:03 Dose: 1 units Documented by: Memantine (Namenda) 10 mg PO BID ON LICENSE OF [facility] Last Admin: 12/18/19 09:22 Dose: 10 mg Documented by: Multi-Ingredient Cream (Eucerin) 1 applic TOPICAL BID ON LICENSE OF [facility]; Protocol Last Admin: 12/18/19 09:23 Dose: 1 applic Documented by: Nystatin (Nystatin) 500,000 unit PO 4X/DAY FELIZ Last Admin: 12/18/19 09:22 Dose: 500,000 unit Documented by: Prednisolone Acetate (Pred Forte Eye Drops (5 Ml)) 1 drop EACH EYE 4X/DAY ON LICENSE OF [facility] Last Admin: 12/18/19 09:21 Dose: 1 drop Documented by: Sodium Chloride () 10 - 40 ml IV UD PRN PRN Reason: SALINE FLUSH Last Admin: 12/15/19 17:16 Dose: 10 ml Documented by: Discharge Diet: No Restrictions Home Medications: Medications to take at Discharge Vit A/Vit C/Vit E/Zinc/Copper [Preservision Areds Softgel] 1 ea PO BID 09/29/16 Amlodipine [Norvasc] 5 mg PO DAILY 06/04/17 Cholecalciferol (VIT D3) [Vitamin D3] 2,000 unit PO DAILY 02/06/19 Fluorometholone [Fml] 1 drp EACH EYE BID 02/06/19 Polyvinyl Alcohol/Povidone/Pf [Refresh Classic Eye Drops] 1 - 2 drp OP BID 02/06/19 Peg 400/Hypromellose/Glycerin [Artificial Tears] 2 drp EACH EYE Q1H PRN bottle 02/23/19 Acetaminophen [Tylenol] 650 mg PO Q4H PRN PRN 12/14/19 Azelastine HCl 2 spray NS BID PRN PRN 12/14/19 Calcium Polycarbophil [Fibercon] 625 mg PO BID 12/14/19 Donepezil HCl [Aricept] 10 mg PO QHS 12/14/19 Memantine Hydrochloride [Namenda] 10 mg PO BID 12/14/19 Mineral Oil/Petrolatum,White [Eucerin] 1 applic TOPICAL BID 12/14/19 buPROPion XL [Wellbutrin Xl] 300 mg PO DAILY 12/14/19 Citalopram [Celexa] 10 mg PO DAILY #0 12/18/19 Glucagon 1 mg IM .X1 PRN syringe 12/18/19 Insulin Glargine [Lantus SoloStar Pen] 10 units SUBCUT DAILY #0 12/18/19 Insulin Lispro [Humalog KwikPen] See Protocol SUBCUT ACHS insuln.pen 12/18/19 Primary Care Physician: Kasi Black III, MD [Primary Care Provider] - Disposition: Nursing Home facility Minutes spent on discharge:: 35 Patient Condition:: Stable Medical Necessity - Tobacco Use Smoking Status: Never smoker Meaningful Use Info Meaningful Use Diagnoses (Choose all that apply): None applicable Inpatient E&M: [id number] [facility] L[facility]
--- NOTE | 2019-12-18 15:05 | CASEMGMT ---
Social Work Note LUANN updated that peer to peer was approved. LUANN placed a call to Cece at [facility] and updated her that peer to peer was approved. Cece states she will need to call [facility] herself to make sure and requests transport to be set up later. LUANN faxed completed discharge paperwork to Cece at [facility] including transfer to extended care facility, signed medication list and any scripts. Original in SNF folder and copy on pt's chart. [facility] completed and original placed on SNF folder and copy on pt's chart. [facility] and arranged [facility] via [facility] for 5:00pm. Transportation form completed and placed on SNF folder and copy on pt's chart. LUANN placed a call to pt's son Eyad who is listed as HCPOA for pt and updated Eyad on approval for SNF and discharge and transportation time. Eyad states understanding. LUANN placed a call back to Cece at [facility] and left message regarding discharge and transportation time. Plan: [facility] skilled today [facility] via [facility] at 5:00pm Naila Bryan MSW, HEAD OF MUSIC
[2019-12-18 15:37] VITALS: BP 111/45; PULSE 89; RESP 18; TEMP 36.3; O2SAT 99
--- NOTE | 2019-12-18 16:28 | NURSING ---
Report given to [facility] at this time.
== END 2019-12-18 18:22 | disposition skilled nursing facility (03) | DRG 682 ==
LOC: ED 17:00 → MS3 20:42
PROVIDERS: Internal Medicine; Emergency Provider Emergency Medicine; PCP Family Medicine; Visit Provider Internal Medicine
DX: N17.9 Acute kidney failure, unspecified (principal); G93.41 Metabolic encephalopathy; N39.0 Urinary tract infection, site not specified; E86.0 Dehydration; E11.22 Type 2 diabetes mellitus with diabetic chronic kidney disease; I12.9 Hypertensive chronic kidney disease with stage 1 through stage 4 chronic kidney disease, or unspecified chronic kidney disease; N18.3 Chronic kidney disease, stage 3 (moderate); E11.649 Type 2 diabetes mellitus with hypoglycemia without coma; R13.10 Dysphagia, unspecified; F03.90 Unspecified dementia, unspecified severity, without behavioral disturbance, psychotic disturbance, mood disturbance, and anxiety; B96.20 Unspecified Escherichia coli [E. coli] as the cause of diseases classified elsewhere; I89.0 Lymphedema, not elsewhere classified; M81.0 Age-related osteoporosis without current pathological fracture; K21.9 Gastro-esophageal reflux disease without esophagitis; Z87.19 Personal history of other diseases of the digestive system; Z85.3 Personal history of malignant neoplasm of breast; F32.9 Major depressive disorder, single episode, unspecified; E55.9 Vitamin D deficiency, unspecified; I45.10 Unspecified right bundle-branch block; E78.00 Pure hypercholesterolemia, unspecified; Z66 Do not resuscitate; M17.11 Unilateral primary osteoarthritis, right knee; B37.9 Candidiasis, unspecified; Z86.2 Personal history of diseases of the blood and blood-forming organs and certain disorders involving the immune mechanism; Z79.4 Long term (current) use of insulin; Z79.899 Other long term (current) drug therapy; R26.2 Difficulty in walking, not elsewhere classified; J34.89 Other specified disorders of nose and nasal sinuses; R19.7 Diarrhea, unspecified; L98.9 Disorder of the skin and subcutaneous tissue, unspecified
CPT/HCPCS: 36415; 70450; 71045; 80048; 81001; 81002; 82570; 82947; 82962; 83036; 83605; 83735; 84100; 84540; 85025; 87040; 87077; 87086; 87088; 87186; 87205; 87635; 92507; 92523; 92526; 92610; 93005; 97110; 97162; 97166; 97530; 99285; G2023; J7030; J7050; J7120; P9612; A4216; U0003

== ENCOUNTER → 2020-01-10 05:00 | Outpatient (REF) | payer MEDICARE, SELFPAY ==
[2019-12-14 19:56] VITALS: BMI 22.9
[2020-01-10 07:49] LABS: Absolute Lymphocyte Count 1.69 X10^3/uL (0.83-4.51); Absolute Neutrophil Count 7.2 X10^3/uL (2.0-7.7); Basophil# 0.04 X10^3/uL; Basophil% 0.4 % (0-1); Eosinophil# 0.11 X10^3/uL; Eosinophils% 1.1 % (0-5); Hematocrit 33.6 % (37-47); Hemoglobin 10.5 g/dL (12.0-15.0); Lymphocyte # 1.69 X10^3/ul (4.0); Lymphocyte % 16.3 % (19-41); Mean Corp Hgb Conc 31.3 g/dL (32-36); Mean Corpuscular Hgb 33.2 pg (27.0-32.0); Mean Corpuscular Volume 106.3 fL (81-99); Mean Platelet Vol. 10.9 fl (6.2-12.0); Monocyte# 1.27 X10^3/uL; Monocyte% 12.2 % (0-10); NRBC Flagged by Analyzer 0 % (0-5); Neutrophil # 7.18 X10^3/uL (2.7-7.7); Neutrophil % 69.2 % (47-70); Platelet Count 260 K/mm3 (150-450); RBC Distribution Width CV 14.3 % (11.6-14.6); RBC Distribution Width SD 55.5 fl (35.1-43.9); Red Blood Count 3.16 M/mm3 (4.2-5.4); White Blood Count 10.4 K/mm3 (4.4-11.0)
[2020-01-10 07:55] LABS: Anion Gap 3 (5-15); BUN 19 mg/dL (7-18); BUN/Creat Ratio 16.7 RATIO (10-20); Calcium,Total 9.3 mg/dL (8.5-10.1); Chloride 110 mmol/L (98-107); Creatinine, Serum 1.14 mg/dL (0.55-1.02); EST Glomerular Filtration Rate 48 mL/min (>60); Est Glom Filt Rate - Afr Amer 58 mL/min (>60); Glucose 104 mg/dL (74-106); Sodium Level 141 mmol/L (136-145)
== END ==
LOC: OLS.WHLCAR 05:00
PROVIDERS: PCP Family Medicine; Referring Provider Family Medicine; Visit Provider Family Medicine
DX: D64.9 Anemia, unspecified (principal); I12.9 Hypertensive chronic kidney disease with stage 1 through stage 4 chronic kidney disease, or unspecified chronic kidney disease; N17.9 Acute kidney failure, unspecified; G93.40 Encephalopathy, unspecified; E16.1 Other hypoglycemia; R26.2 Difficulty in walking, not elsewhere classified; J34.89 Other specified disorders of nose and nasal sinuses
CPT/HCPCS: 36415; 80048; 85025

== ENCOUNTER → 2020-01-17 05:00 | Outpatient (REF) | payer MEDICARE, SELFPAY ==
[2019-12-14 19:56] VITALS: BMI 22.9
[2020-01-17 07:08] LABS: Absolute Lymphocyte Count 1.71 X10^3/uL (0.83-4.51); Absolute Neutrophil Count 5.6 X10^3/uL (2.0-7.7); Basophil# 0.04 X10^3/uL; Basophil% 0.5 % (0-1); Eosinophil# 0.18 X10^3/uL; Eosinophils% 2.1 % (0-5); Hematocrit 32.8 % (37-47); Hemoglobin 10.5 g/dL (12.0-15.0); Lymphocyte # 1.71 X10^3/ul (4.0); Lymphocyte % 19.9 % (19-41); Mean Corpuscular Hgb 34.1 pg (27.0-32.0); Mean Corpuscular Volume 106.5 fL (81-99); Mean Platelet Vol. 11.3 fl (6.2-12.0); Monocyte# 1.05 X10^3/uL; Monocyte% 12.2 % (0-10); NRBC Flagged by Analyzer 0 % (0-5); Neutrophil # 5.56 X10^3/uL (2.7-7.7); Neutrophil % 64.5 % (47-70); Platelet Count 213 K/mm3 (150-450); RBC Distribution Width CV 13.9 % (11.6-14.6); RBC Distribution Width SD 54.9 fl (35.1-43.9); Red Blood Count 3.08 M/mm3 (4.2-5.4); White Blood Count 8.6 K/mm3 (4.4-11.0)
[2020-01-17 07:54] LABS: Anion Gap 5 (5-15); BUN 25 mg/dL (7-18); BUN/Creat Ratio 24.8 RATIO (10-20); Calcium,Total 9.6 mg/dL (8.5-10.1); Chloride 113 mmol/L (98-107); Creatinine, Serum 1.01 mg/dL (0.55-1.02); EST Glomerular Filtration Rate 56 mL/min (>60); Est Glom Filt Rate - Afr Amer 67 mL/min (>60); Glucose 100 mg/dL (74-106); Potassium 3.9 mmol/L (3.5-5.1); Sodium Level 143 mmol/L (136-145)
== END ==
LOC: OLS.WHLCAR 05:00
PROVIDERS: PCP Family Medicine; Referring Provider Family Medicine; Visit Provider Family Medicine
DX: D64.9 Anemia, unspecified (principal)
CPT/HCPCS: 36415; 80048; 85025

== ENCOUNTER → 2020-01-24 06:00 | Outpatient (REF) | payer MEDICARE, SELFPAY ==
[2019-12-14 19:56] VITALS: BMI 22.9
[2020-01-24 07:46] LABS: Absolute Lymphocyte Count 1.74 X10^3/uL (0.83-4.51); Absolute Neutrophil Count 7.3 X10^3/uL (2.0-7.7); Basophil# 0.05 X10^3/uL; Basophil% 0.5 % (0-1); Eosinophil# 0.26 X10^3/uL; Eosinophils% 2.5 % (0-5); Hematocrit 37.5 % (37-47); Hemoglobin 11.8 g/dL (12.0-15.0); Lymphocyte # 1.74 X10^3/ul (4.0); Lymphocyte % 16.7 % (19-41); Mean Corp Hgb Conc 31.5 g/dL (32-36); Mean Corpuscular Hgb 33.7 pg (27.0-32.0); Mean Corpuscular Volume 107.1 fL (81-99); Mean Platelet Vol. 10.9 fl (6.2-12.0); Monocyte# 0.94 X10^3/uL; NRBC Flagged by Analyzer 0 % (0-5); Neutrophil # 7.32 X10^3/uL (2.7-7.7); Neutrophil % 70.5 % (47-70); Platelet Count 271 K/mm3 (150-450); RBC Distribution Width CV 13.7 % (11.6-14.6); RBC Distribution Width SD 53.6 fl (35.1-43.9); White Blood Count 10.4 K/mm3 (4.4-11.0)
[2020-01-24 08:21] LABS: Anion Gap 4 (5-15); BUN 25 mg/dL (7-18); BUN/Creat Ratio 24.3 RATIO (10-20); Calcium,Total 9.8 mg/dL (8.5-10.1); Chloride 112 mmol/L (98-107); Creatinine, Serum 1.03 mg/dL (0.55-1.02); EST Glomerular Filtration Rate 54 mL/min (>60); Est Glom Filt Rate - Afr Amer 66 mL/min (>60); Glucose 112 mg/dL (74-106); Potassium 4.3 mmol/L (3.5-5.1); Sodium Level 142 mmol/L (136-145)
== END ==
LOC: OLS.WHLTCC 06:00
PROVIDERS: PCP Family Medicine; Visit Provider Family Medicine
DX: D64.9 Anemia, unspecified (principal); I12.9 Hypertensive chronic kidney disease with stage 1 through stage 4 chronic kidney disease, or unspecified chronic kidney disease; N17.9 Acute kidney failure, unspecified; G93.40 Encephalopathy, unspecified; E16.1 Other hypoglycemia; R26.2 Difficulty in walking, not elsewhere classified; J34.89 Other specified disorders of nose and nasal sinuses
CPT/HCPCS: 36415; 80048; 85025

== ENCOUNTER → 2020-01-31 05:00 | Outpatient (REF) | payer MEDICARE, SELFPAY ==
[2019-12-14 19:56] VITALS: BMI 22.9
[2020-01-31 07:23] LABS: Absolute Neutrophil Count 10.8 X10^3/uL (2.0-7.7); Basophil# 0.05 X10^3/uL; Basophil% 0.3 % (0-1); Eosinophil# 0.25 X10^3/uL; Eosinophils% 1.7 % (0-5); Hematocrit 35.3 % (37-47); Hemoglobin 11.4 g/dL (12.0-15.0); Lymphocyte % 13.2 % (19-41); Mean Corp Hgb Conc 32.3 g/dL (32-36); Mean Corpuscular Hgb 33.8 pg (27.0-32.0); Mean Corpuscular Volume 104.7 fL (81-99); Monocyte# 1.25 X10^3/uL; Monocyte% 8.7 % (0-10); NRBC Flagged by Analyzer 0 % (0-5); Neutrophil # 10.81 X10^3/uL (2.7-7.7); Neutrophil % 75.5 % (47-70); Platelet Count 272 K/mm3 (150-450); RBC Distribution Width CV 13.2 % (11.6-14.6); RBC Distribution Width SD 51.2 fl (35.1-43.9); Red Blood Count 3.37 M/mm3 (4.2-5.4); White Blood Count 14.4 K/mm3 (4.4-11.0)
[2020-01-31 08:06] LABS: Anion Gap 5 (5-15); BUN 21 mg/dL (7-18); BUN/Creat Ratio 26.8 RATIO (10-20); Calcium,Total 9.1 mg/dL (8.5-10.1); Chloride 113 mmol/L (98-107); Creatinine, Serum 0.78 mg/dL (0.55-1.02); EST Glomerular Filtration Rate 74 mL/min (>60); Est Glom Filt Rate - Afr Amer 90 mL/min (>60); Glucose 101 mg/dL (74-106); Potassium 3.7 mmol/L (3.5-5.1); Sodium Level 142 mmol/L (136-145)
== END ==
LOC: OLS.WHLCAR 05:00
PROVIDERS: PCP Family Medicine; Visit Provider Family Medicine
DX: D64.9 Anemia, unspecified (principal); I12.9 Hypertensive chronic kidney disease with stage 1 through stage 4 chronic kidney disease, or unspecified chronic kidney disease; N17.9 Acute kidney failure, unspecified; G93.40 Encephalopathy, unspecified; E16.1 Other hypoglycemia; R26.2 Difficulty in walking, not elsewhere classified; J34.89 Other specified disorders of nose and nasal sinuses
CPT/HCPCS: 36415; 80048; 85025

== ENCOUNTER → 2020-02-07 05:00 | Outpatient (REF) | payer MEDICARE, SELFPAY ==
[2019-12-14 19:56] VITALS: BMI 22.9
[2020-02-07 07:41] LABS: Absolute Lymphocyte Count 1.35 X10^3/uL (0.83-4.51); Absolute Neutrophil Count 15.5 X10^3/uL (2.0-7.7); Basophil# 0.03 X10^3/uL; Basophil% 0.2 % (0-1); Eosinophil# 0.03 X10^3/uL; Eosinophils% 0.2 % (0-5); Hematocrit 33.9 % (37-47); Hemoglobin 10.9 g/dL (12.0-15.0); Lymphocyte # 1.35 X10^3/ul (4.0); Lymphocyte % 7.1 % (19-41); Mean Corp Hgb Conc 32.2 g/dL (32-36); Mean Corpuscular Hgb 32.9 pg (27.0-32.0); Mean Corpuscular Volume 102.4 fL (81-99); Mean Platelet Vol. 11.2 fl (6.2-12.0); NRBC Flagged by Analyzer 0 % (0-5); Neutrophil # 15.54 X10^3/uL (2.7-7.7); Neutrophil % 81.9 % (47-70); POSITIVE DIFFERENTIAL YES; Platelet Count 309 K/mm3 (150-450); RBC Distribution Width CV 12.3 % (11.6-14.6); RBC Distribution Width SD 46.9 fl (35.1-43.9); Red Blood Count 3.31 M/mm3 (4.2-5.4)
[2020-02-07 08:01] LABS: Differential Indicated SCAN CRITERIA MET
[2020-02-07 08:05] LABS: Anion Gap 6 (5-15); BUN 14 mg/dL (7-18); BUN/Creat Ratio 17.5 RATIO (10-20); Calcium,Total 9.1 mg/dL (8.5-10.1); Chloride 109 mmol/L (98-107); EST Glomerular Filtration Rate 73 mL/min (>60); Est Glom Filt Rate - Afr Amer 88 mL/min (>60); Glucose 142 mg/dL (74-106); Potassium 2.9 mmol/L (3.5-5.1); Sodium Level 140 mmol/L (136-145)
[2020-02-07 14:06] LABS: Pathologist Review Reviewed
== END ==
LOC: OLS.WHLCAR 05:00
PROVIDERS: PCP Family Medicine; Referring Provider Family Medicine; Visit Provider Family Medicine
DX: N17.9 Acute kidney failure, unspecified (principal); G93.40 Encephalopathy, unspecified; E16.1 Other hypoglycemia; R26.2 Difficulty in walking, not elsewhere classified; J34.89 Other specified disorders of nose and nasal sinuses; I12.9 Hypertensive chronic kidney disease with stage 1 through stage 4 chronic kidney disease, or unspecified chronic kidney disease
CPT/HCPCS: 36415; 80048; 85025

== ENCOUNTER → 2020-02-13 04:00 | Outpatient (REF) | payer MEDICARE, SELFPAY ==
[2019-12-14 19:56] VITALS: BMI 22.9
[2020-02-13 08:35] LABS: Absolute Lymphocyte Count 1.59 X10^3/uL (0.83-4.51); Absolute Neutrophil Count 13.9 X10^3/uL (2.0-7.7); Basophil# 0.05 X10^3/uL; Basophil% 0.3 % (0-1); Eosinophil# 0.14 X10^3/uL; Eosinophils% 0.8 % (0-5); Hematocrit 33.5 % (37-47); Hemoglobin 10.7 g/dL (12.0-15.0); Lymphocyte # 1.59 X10^3/ul (4.0); Lymphocyte % 9.1 % (19-41); Mean Corp Hgb Conc 31.9 g/dL (32-36); Mean Corpuscular Hgb 33.2 pg (27.0-32.0); Mean Platelet Vol. 11.3 fl (6.2-12.0); Monocyte# 1.64 X10^3/uL; Monocyte% 9.3 % (0-10); NRBC Flagged by Analyzer 0 % (0-5); Neutrophil # 13.93 X10^3/uL (2.7-7.7); Neutrophil % 79.3 % (47-70); POSITIVE DIFFERENTIAL YES; Platelet Count 373 K/mm3 (150-450); RBC Distribution Width CV 12.3 % (11.6-14.6); RBC Distribution Width SD 46.9 fl (35.1-43.9); Red Blood Count 3.22 M/mm3 (4.2-5.4); White Blood Count 17.6 K/mm3 (4.4-11.0)
[2020-02-13 08:40] LABS: Differential Indicated SCAN CRITERIA MET
[2020-02-15 09:09] LABS: Pathologist Review Reviewed
== END ==
LOC: OLS.WHLCAR 04:00
PROVIDERS: PCP Family Medicine; Referring Provider Family Medicine; Visit Provider Family Medicine
DX: N17.9 Acute kidney failure, unspecified (principal); G93.41 Metabolic encephalopathy; N39.0 Urinary tract infection, site not specified; B96.20 Unspecified Escherichia coli [E. coli] as the cause of diseases classified elsewhere
CPT/HCPCS: 36415; 85025; 87493

== ENCOUNTER → 2020-02-14 05:00 | Outpatient (REF) | payer MEDICARE, SELFPAY ==
[2019-12-14 19:56] VITALS: BMI 22.9
[2020-02-14 06:54] LABS: Absolute Lymphocyte Count 1.65 X10^3/uL (0.83-4.51); Absolute Neutrophil Count 11.6 X10^3/uL (2.0-7.7); Basophil# 0.05 X10^3/uL; Basophil% 0.3 % (0-1); Eosinophil# 0.18 X10^3/uL; Eosinophils% 1.2 % (0-5); Hematocrit 30.6 % (37-47); Hemoglobin 10.1 g/dL (12.0-15.0); Lymphocyte # 1.65 X10^3/ul (4.0); Mean Corpuscular Hgb 34.1 pg (27.0-32.0); Mean Corpuscular Volume 103.4 fL (81-99); Mean Platelet Vol. 11.3 fl (6.2-12.0); Monocyte# 1.29 X10^3/uL; Monocyte% 8.6 % (0-10); NRBC Flagged by Analyzer 0 % (0-5); Neutrophil # 11.58 X10^3/uL (2.7-7.7); Neutrophil % 77.6 % (47-70); Platelet Count 354 K/mm3 (150-450); RBC Distribution Width CV 12.2 % (11.6-14.6); RBC Distribution Width SD 46.3 fl (35.1-43.9); Red Blood Count 2.96 M/mm3 (4.2-5.4); White Blood Count 14.9 K/mm3 (4.4-11.0)
[2020-02-14 07:10] LABS: Anion Gap 4 (5-15); BUN 18 mg/dL (7-18); BUN/Creat Ratio 24.1 RATIO (10-20); Calcium,Total 9.2 mg/dL (8.5-10.1); Chloride 109 mmol/L (98-107); Creatinine, Serum 0.75 mg/dL (0.55-1.02); EST Glomerular Filtration Rate 79 mL/min (>60); Est Glom Filt Rate - Afr Amer 95 mL/min (>60); Glucose 129 mg/dL (74-106); Potassium 3.3 mmol/L (3.5-5.1); Sodium Level 140 mmol/L (136-145)
== END ==
LOC: OLS.WHLCAR 05:00
PROVIDERS: PCP Family Medicine; Referring Provider Family Medicine; Visit Provider Family Medicine
DX: I12.9 Hypertensive chronic kidney disease with stage 1 through stage 4 chronic kidney disease, or unspecified chronic kidney disease (principal); D64.9 Anemia, unspecified; N17.9 Acute kidney failure, unspecified; G93.40 Encephalopathy, unspecified; E16.1 Other hypoglycemia; R26.2 Difficulty in walking, not elsewhere classified; J34.89 Other specified disorders of nose and nasal sinuses
CPT/HCPCS: 36415; 80048; 85025

== ENCOUNTER → 2020-02-21 05:00 | Outpatient (REF) | payer MEDICARE, SELFPAY ==
[2019-12-14 19:56] VITALS: BMI 22.9
[2020-02-21 07:29] LABS: Absolute Lymphocyte Count 1.57 X10^3/uL (0.83-4.51); Basophil# 0.03 X10^3/uL; Basophil% 0.1 % (0-1); Eosinophil# 0.02 X10^3/uL; Eosinophils% 0.1 % (0-5); Hematocrit 32.2 % (37-47); Hemoglobin 10.5 g/dL (12.0-15.0); Lymphocyte # 1.57 X10^3/ul (4.0); Lymphocyte % 7.8 % (19-41); Mean Corp Hgb Conc 32.6 g/dL (32-36); Mean Corpuscular Hgb 33.1 pg (27.0-32.0); Mean Corpuscular Volume 101.6 fL (81-99); Mean Platelet Vol. 11.4 fl (6.2-12.0); Monocyte# 1.28 X10^3/uL; Monocyte% 6.4 % (0-10); NRBC Flagged by Analyzer 0 % (0-5); Neutrophil # 16.99 X10^3/uL (2.7-7.7); Neutrophil % 84.6 % (47-70); Platelet Count 371 K/mm3 (150-450); RBC Distribution Width CV 12.2 % (11.6-14.6); RBC Distribution Width SD 46.1 fl (35.1-43.9); Red Blood Count 3.17 M/mm3 (4.2-5.4); White Blood Count 20.1 K/mm3 (4.4-11.0)
[2020-02-21 07:42] LABS: Anion Gap 5 (5-15); BUN 15 mg/dL (7-18); BUN/Creat Ratio 18.3 RATIO (10-20); Calcium,Total 9.3 mg/dL (8.5-10.1); Chloride 106 mmol/L (98-107); Creatinine, Serum 0.82 mg/dL (0.55-1.02); EST Glomerular Filtration Rate 71 mL/min (>60); Est Glom Filt Rate - Afr Amer 86 mL/min (>60); Glucose 157 mg/dL (74-106); Potassium 3.3 mmol/L (3.5-5.1); Sodium Level 140 mmol/L (136-145)
== END ==
LOC: OLS.WHLCAR 05:00
PROVIDERS: PCP Family Medicine; Referring Provider Family Medicine; Visit Provider Family Medicine
DX: G93.41 Metabolic encephalopathy (principal); D64.9 Anemia, unspecified; N17.9 Acute kidney failure, unspecified; N39.0 Urinary tract infection, site not specified; B96.20 Unspecified Escherichia coli [E. coli] as the cause of diseases classified elsewhere; F03.90 Unspecified dementia, unspecified severity, without behavioral disturbance, psychotic disturbance, mood disturbance, and anxiety
CPT/HCPCS: 36415; 80048; 85025

== ENCOUNTER → 2020-02-22 21:00 | Outpatient (REF) | payer MEDICARE, SELFPAY ==
[2019-12-14 19:56] VITALS: BMI 22.9
== END ==
LOC: OLS.WHLCAR 21:00
PROVIDERS: PCP Family Medicine; Visit Provider Family Medicine
DX: N39.0 Urinary tract infection, site not specified (principal); G93.41 Metabolic encephalopathy; N17.9 Acute kidney failure, unspecified; B96.20 Unspecified Escherichia coli [E. coli] as the cause of diseases classified elsewhere; F03.90 Unspecified dementia, unspecified severity, without behavioral disturbance, psychotic disturbance, mood disturbance, and anxiety
CPT/HCPCS: 87493

== ENCOUNTER → 2020-02-28 05:00 | Outpatient (REF) | payer MEDICARE, SELFPAY ==
[2019-12-14 19:56] VITALS: BMI 22.9
[2020-02-28 08:23] LABS: Absolute Lymphocyte Count 2.74 X10^3/uL (0.83-4.51); Absolute Neutrophil Count 9.9 X10^3/uL (2.0-7.7); Basophil# 0.04 X10^3/uL; Basophil% 0.3 % (0-1); Eosinophil# 0.12 X10^3/uL; Eosinophils% 0.8 % (0-5); Hematocrit 33.5 % (37-47); Hemoglobin 10.6 g/dL (12.0-15.0); Lymphocyte # 2.74 X10^3/ul (4.0); Lymphocyte % 19.1 % (19-41); Mean Corp Hgb Conc 31.6 g/dL (32-36); Mean Corpuscular Hgb 31.7 pg (27.0-32.0); Mean Corpuscular Volume 100.3 fL (81-99); Mean Platelet Vol. 10.8 fl (6.2-12.0); Monocyte# 1.36 X10^3/uL; Monocyte% 9.5 % (0-10); NRBC Flagged by Analyzer 0 % (0-5); Neutrophil # 9.85 X10^3/uL (2.7-7.7); Neutrophil % 68.9 % (47-70); Platelet Count 328 K/mm3 (150-450); RBC Distribution Width CV 12.5 % (11.6-14.6); RBC Distribution Width SD 46.5 fl (35.1-43.9); Red Blood Count 3.34 M/mm3 (4.2-5.4); White Blood Count 14.3 K/mm3 (4.4-11.0)
[2020-02-28 08:38] LABS: Anion Gap 5 (5-15); BUN 11 mg/dL (7-18); BUN/Creat Ratio 15.9 RATIO (10-20); Calcium,Total 9.2 mg/dL (8.5-10.1); Chloride 107 mmol/L (98-107); Creatinine, Serum 0.69 mg/dL (0.55-1.02); EST Glomerular Filtration Rate 86 mL/min (>60); Est Glom Filt Rate - Afr Amer 104 mL/min (>60); Glucose 134 mg/dL (74-106); Potassium 3.2 mmol/L (3.5-5.1); Sodium Level 141 mmol/L (136-145)
== END ==
LOC: OLS.WHLCAR 05:00
PROVIDERS: PCP Family Medicine; Visit Provider Family Medicine
DX: D64.9 Anemia, unspecified (principal); G93.41 Metabolic encephalopathy; N17.9 Acute kidney failure, unspecified; N39.0 Urinary tract infection, site not specified; B96.20 Unspecified Escherichia coli [E. coli] as the cause of diseases classified elsewhere; F03.90 Unspecified dementia, unspecified severity, without behavioral disturbance, psychotic disturbance, mood disturbance, and anxiety
CPT/HCPCS: 36415; 80048; 85025

== ENCOUNTER → 2020-03-06 05:00 | Outpatient (REF) | payer MEDICARE, SELFPAY ==
[2019-12-14 19:56] VITALS: BMI 22.9
[2020-03-06 06:30] LABS: Absolute Neutrophil Count 11.1 X10^3/uL (2.0-7.7); Basophil# 0.03 X10^3/uL; Basophil% 0.2 % (0-1); Eosinophil# 0.11 X10^3/uL; Eosinophils% 0.7 % (0-5); Hematocrit 32.5 % (37-47); Hemoglobin 10.3 g/dL (12.0-15.0); Lymphocyte % 14.9 % (19-41); Mean Corp Hgb Conc 31.7 g/dL (32-36); Mean Corpuscular Hgb 32.1 pg (27.0-32.0); Mean Corpuscular Volume 101.2 fL (81-99); Mean Platelet Vol. 10.2 fl (6.2-12.0); Monocyte# 1.26 X10^3/uL; Monocyte% 8.5 % (0-10); NRBC Flagged by Analyzer 0 % (0-5); Neutrophil # 11.11 X10^3/uL (2.7-7.7); Platelet Count 317 K/mm3 (150-450); RBC Distribution Width CV 12.9 % (11.6-14.6); RBC Distribution Width SD 48.3 fl (35.1-43.9); Red Blood Count 3.21 M/mm3 (4.2-5.4); White Blood Count 14.8 K/mm3 (4.4-11.0)
[2020-03-06 07:02] LABS: Anion Gap 2 (5-15); BUN 14 mg/dL (7-18); BUN/Creat Ratio 17.8 RATIO (10-20); Calcium,Total 9.2 mg/dL (8.5-10.1); Chloride 109 mmol/L (98-107); Creatinine, Serum 0.79 mg/dL (0.55-1.02); EST Glomerular Filtration Rate 74 mL/min (>60); Est Glom Filt Rate - Afr Amer 90 mL/min (>60); Glucose 130 mg/dL (74-106); Potassium 3.2 mmol/L (3.5-5.1); Sodium Level 141 mmol/L (136-145)
[2020-03-07 08:20] LABS: Hemoglobin A1c 5.8 % (3.8-5.6)
== END ==
LOC: OLS.WHLCAR 05:00
PROVIDERS: PCP Family Medicine; Visit Provider Family Medicine
DX: D64.9 Anemia, unspecified (principal); G93.41 Metabolic encephalopathy; I12.9 Hypertensive chronic kidney disease with stage 1 through stage 4 chronic kidney disease, or unspecified chronic kidney disease; N17.9 Acute kidney failure, unspecified; N39.0 Urinary tract infection, site not specified; E11.9 Type 2 diabetes mellitus without complications; B96.20 Unspecified Escherichia coli [E. coli] as the cause of diseases classified elsewhere
CPT/HCPCS: 36415; 80048; 83036; 85025

== ENCOUNTER → 2020-03-13 05:00 | Outpatient (REF) | payer MEDICARE, SELFPAY ==
[2019-12-14 19:56] VITALS: BMI 22.9
[2020-03-13 07:58] LABS: Absolute Lymphocyte Count 2.04 X10^3/uL (0.83-4.51); Absolute Neutrophil Count 7.4 X10^3/uL (2.0-7.7); Basophil# 0.03 X10^3/uL; Basophil% 0.3 % (0-1); Eosinophil# 0.26 X10^3/uL; Eosinophils% 2.4 % (0-5); Hematocrit 36.9 % (37-47); Hemoglobin 11.8 g/dL (12.0-15.0); Lymphocyte # 2.04 X10^3/ul (4.0); Lymphocyte % 18.9 % (19-41); Mean Corpuscular Hgb 32.1 pg (27.0-32.0); Mean Corpuscular Volume 100.3 fL (81-99); Mean Platelet Vol. 10.4 fl (6.2-12.0); Monocyte# 0.95 X10^3/uL; Monocyte% 8.8 % (0-10); NRBC Flagged by Analyzer 0 % (0-5); Neutrophil # 7.43 X10^3/uL (2.7-7.7); Neutrophil % 68.9 % (47-70); Platelet Count 312 K/mm3 (150-450); RBC Distribution Width CV 13.2 % (11.6-14.6); RBC Distribution Width SD 48.9 fl (35.1-43.9); Red Blood Count 3.68 M/mm3 (4.2-5.4); White Blood Count 10.8 K/mm3 (4.4-11.0)
[2020-03-13 08:12] LABS: Anion Gap 4 (5-15); BUN 13 mg/dL (7-18); BUN/Creat Ratio 16.9 RATIO (10-20); Calcium,Total 9.5 mg/dL (8.5-10.1); Chloride 104 mmol/L (98-107); Creatinine, Serum 0.77 mg/dL (0.55-1.02); EST Glomerular Filtration Rate 76 mL/min (>60); Est Glom Filt Rate - Afr Amer 92 mL/min (>60); Glucose 118 mg/dL (74-106); Potassium 3.1 mmol/L (3.5-5.1); Sodium Level 140 mmol/L (136-145)
[2020-03-13 08:20] LABS: Hemoglobin A1c 5.8 % (3.8-5.6)
== END ==
LOC: OLS.WHLCAR 05:00
PROVIDERS: PCP Family Medicine; Referring Provider Family Medicine; Visit Provider Family Medicine
DX: E11.22 Type 2 diabetes mellitus with diabetic chronic kidney disease (principal); G93.41 Metabolic encephalopathy; N17.9 Acute kidney failure, unspecified; N39.0 Urinary tract infection, site not specified; B96.20 Unspecified Escherichia coli [E. coli] as the cause of diseases classified elsewhere; N18.9 Chronic kidney disease, unspecified
CPT/HCPCS: 36415; 80048; 83036; 85025

== ENCOUNTER → 2020-03-20 05:00 | Outpatient (REF) | payer MEDICARE, SELFPAY ==
[2019-12-14 19:56] VITALS: BMI 22.9
[2020-03-20 07:04] LABS: Absolute Neutrophil Count 7.2 X10^3/uL (2.0-7.7); Basophil# 0.06 X10^3/uL; Basophil% 0.6 % (0-1); Eosinophils% 1.9 % (0-5); Hematocrit 37.4 % (37-47); Hemoglobin 11.8 g/dL (12.0-15.0); Lymphocyte % 20.4 % (19-41); Mean Corp Hgb Conc 31.6 g/dL (32-36); Mean Corpuscular Hgb 31.8 pg (27.0-32.0); Mean Corpuscular Volume 100.8 fL (81-99); Mean Platelet Vol. 11.2 fl (6.2-12.0); Monocyte# 1.03 X10^3/uL; Monocyte% 9.5 % (0-10); NRBC Flagged by Analyzer 0 % (0-5); Neutrophil # 7.23 X10^3/uL (2.7-7.7); Platelet Count 302 K/mm3 (150-450); RBC Distribution Width CV 13.5 % (11.6-14.6); RBC Distribution Width SD 50.4 fl (35.1-43.9); Red Blood Count 3.71 M/mm3 (4.2-5.4); White Blood Count 10.8 K/mm3 (4.4-11.0)
[2020-03-20 07:24] LABS: Anion Gap 5 (5-15); BUN 18 mg/dL (7-18); Calcium,Total 10.2 mg/dL (8.5-10.1); Chloride 102 mmol/L (98-107); Creatinine, Serum 0.86 mg/dL (0.55-1.02); EST Glomerular Filtration Rate 67 mL/min (>60); Est Glom Filt Rate - Afr Amer 81 mL/min (>60); Glucose 125 mg/dL (74-106); Potassium 3.4 mmol/L (3.5-5.1); Sodium Level 139 mmol/L (136-145)
== END ==
LOC: OLS.WHLCAR 05:00
PROVIDERS: PCP Family Medicine; Visit Provider Family Medicine
DX: D64.9 Anemia, unspecified (principal)
CPT/HCPCS: 36415; 80048; 85025

== ENCOUNTER → 2020-03-27 05:00 | Outpatient (REF) | payer MEDICARE, SELFPAY ==
[2019-12-14 19:56] VITALS: BMI 22.9
[2020-03-27 08:26] LABS: Absolute Lymphocyte Count 2.44 X10^3/uL (0.83-4.51); Absolute Neutrophil Count 8.9 X10^3/uL (2.0-7.7); Basophil# 0.07 X10^3/uL; Basophil% 0.5 % (0-1); Eosinophil# 0.18 X10^3/uL; Eosinophils% 1.4 % (0-5); Hematocrit 39.2 % (37-47); Hemoglobin 12.4 g/dL (12.0-15.0); Lymphocyte # 2.44 X10^3/ul (4.0); Lymphocyte % 19.2 % (19-41); Mean Corp Hgb Conc 31.6 g/dL (32-36); Mean Corpuscular Hgb 31.4 pg (27.0-32.0); Mean Corpuscular Volume 99.2 fL (81-99); Mean Platelet Vol. 11.7 fl (6.2-12.0); Monocyte# 1.05 X10^3/uL; Monocyte% 8.2 % (0-10); NRBC Flagged by Analyzer 0 % (0-5); Neutrophil # 8.92 X10^3/uL (2.7-7.7); Neutrophil % 70.1 % (47-70); Platelet Count 277 K/mm3 (150-450); RBC Distribution Width CV 13.3 % (11.6-14.6); RBC Distribution Width SD 48.9 fl (35.1-43.9); Red Blood Count 3.95 M/mm3 (4.2-5.4); White Blood Count 12.7 K/mm3 (4.4-11.0)
[2020-03-27 08:39] LABS: Anion Gap 6 (5-15); BUN 19 mg/dL (7-18); BUN/Creat Ratio 20.1 RATIO (10-20); Calcium,Total 10.7 mg/dL (8.5-10.1); Chloride 103 mmol/L (98-107); Creatinine, Serum 0.95 mg/dL (0.55-1.02); EST Glomerular Filtration Rate 60 mL/min (>60); Est Glom Filt Rate - Afr Amer 72 mL/min (>60); Glucose 125 mg/dL (74-106); Potassium 3.7 mmol/L (3.5-5.1); Sodium Level 137 mmol/L (136-145)
== END ==
LOC: OLS.WHLCAR 05:00
PROVIDERS: PCP Family Medicine; Referring Provider Family Medicine; Visit Provider Family Medicine
DX: G93.41 Metabolic encephalopathy (principal); N17.9 Acute kidney failure, unspecified; N39.0 Urinary tract infection, site not specified; B96.20 Unspecified Escherichia coli [E. coli] as the cause of diseases classified elsewhere; F03.90 Unspecified dementia, unspecified severity, without behavioral disturbance, psychotic disturbance, mood disturbance, and anxiety; D64.9 Anemia, unspecified
CPT/HCPCS: 36415; 80048; 85025

== ENCOUNTER → 2020-04-03 05:00 | Outpatient (REF) | payer MEDICARE, SELFPAY ==
[2019-12-14 19:56] VITALS: BMI 22.9
[2020-04-03 07:15] LABS: Absolute Lymphocyte Count 1.64 X10^3/uL (0.83-4.51); Absolute Neutrophil Count 9.9 X10^3/uL (2.0-7.7); Basophil# 0.06 X10^3/uL; Basophil% 0.5 % (0-1); Eosinophil# 0.22 X10^3/uL; Eosinophils% 1.7 % (0-5); Hematocrit 42.7 % (37-47); Hemoglobin 13.5 g/dL (12.0-15.0); Lymphocyte # 1.64 X10^3/ul (4.0); Lymphocyte % 12.7 % (19-41); Mean Corp Hgb Conc 31.6 g/dL (32-36); Mean Corpuscular Hgb 31.5 pg (27.0-32.0); Mean Corpuscular Volume 99.5 fL (81-99); Mean Platelet Vol. 11.7 fl (6.2-12.0); Monocyte# 1.03 X10^3/uL; NRBC Flagged by Analyzer 0 % (0-5); Neutrophil # 9.88 X10^3/uL (2.7-7.7); Neutrophil % 76.3 % (47-70); Platelet Count 254 K/mm3 (150-450); RBC Distribution Width CV 13.6 % (11.6-14.6); RBC Distribution Width SD 49.8 fl (35.1-43.9); Red Blood Count 4.29 M/mm3 (4.2-5.4); White Blood Count 12.9 K/mm3 (4.4-11.0)
[2020-04-03 07:33] LABS: Anion Gap 4 (5-15); BUN 25 mg/dL (7-18); BUN/Creat Ratio 23.4 RATIO (10-20); Chloride 106 mmol/L (98-107); Creatinine, Serum 1.07 mg/dL (0.55-1.02); EST Glomerular Filtration Rate 52 mL/min (>60); Est Glom Filt Rate - Afr Amer 63 mL/min (>60); Glucose 139 mg/dL (74-106); Potassium 3.8 mmol/L (3.5-5.1); Sodium Level 139 mmol/L (136-145)
== END ==
LOC: OLS.WHLCAR 05:00
PROVIDERS: PCP Family Medicine; Visit Provider Family Medicine
DX: D64.9 Anemia, unspecified (principal)
CPT/HCPCS: 36415; 80048; 85025

== ENCOUNTER → 2020-04-10 05:00 | Outpatient (REF) | payer MEDICARE, SELFPAY ==
[2019-12-14 19:56] VITALS: BMI 22.9
[2020-04-10 07:19] LABS: Absolute Lymphocyte Count 1.82 X10^3/uL (0.83-4.51); Absolute Neutrophil Count 10.2 X10^3/uL (2.0-7.7); Basophil# 0.06 X10^3/uL; Basophil% 0.4 % (0-1); Eosinophil# 0.28 X10^3/uL; Eosinophils% 2.1 % (0-5); Hematocrit 42.2 % (37-47); Hemoglobin 13.3 g/dL (12.0-15.0); Lymphocyte # 1.82 X10^3/ul (4.0); Lymphocyte % 13.5 % (19-41); Mean Corp Hgb Conc 31.5 g/dL (32-36); Mean Corpuscular Hgb 31.6 pg (27.0-32.0); Mean Corpuscular Volume 100.2 fL (81-99); Mean Platelet Vol. 11.7 fl (6.2-12.0); Monocyte# 1.08 X10^3/uL; NRBC Flagged by Analyzer 0 % (0-5); Neutrophil # 10.16 X10^3/uL (2.7-7.7); Neutrophil % 75.3 % (47-70); Platelet Count 253 K/mm3 (150-450); RBC Distribution Width CV 13.6 % (11.6-14.6); Red Blood Count 4.21 M/mm3 (4.2-5.4); White Blood Count 13.5 K/mm3 (4.4-11.0)
[2020-04-10 07:41] LABS: Anion Gap 8 (5-15); BUN 27 mg/dL (7-18); BUN/Creat Ratio 25.5 RATIO (10-20); Calcium,Total 10.8 mg/dL (8.5-10.1); Chloride 105 mmol/L (98-107); Creatinine, Serum 1.06 mg/dL (0.55-1.02); EST Glomerular Filtration Rate 53 mL/min (>60); Est Glom Filt Rate - Afr Amer 64 mL/min (>60); Glucose 172 mg/dL (74-106); Sodium Level 139 mmol/L (136-145)
== END ==
LOC: OLS.WHLCAR 05:00
PROVIDERS: PCP Family Medicine; Referring Provider Family Medicine; Visit Provider Family Medicine
DX: G93.41 Metabolic encephalopathy (principal); D64.9 Anemia, unspecified; N17.9 Acute kidney failure, unspecified; N39.0 Urinary tract infection, site not specified; B96.20 Unspecified Escherichia coli [E. coli] as the cause of diseases classified elsewhere; F03.90 Unspecified dementia, unspecified severity, without behavioral disturbance, psychotic disturbance, mood disturbance, and anxiety
CPT/HCPCS: 36415; 80048; 85025

== ENCOUNTER → 2020-04-17 05:00 | Outpatient (REF) | payer MEDICARE, SELFPAY ==
[2019-12-14 19:56] VITALS: BMI 22.9
[2020-04-17 07:05] LABS: Absolute Lymphocyte Count 1.73 X10^3/uL (0.83-4.51); Absolute Neutrophil Count 11.4 X10^3/uL (2.0-7.7); Basophil# 0.04 X10^3/uL; Basophil% 0.3 % (0-1); Eosinophil# 0.11 X10^3/uL; Eosinophils% 0.8 % (0-5); Hematocrit 42.5 % (37-47); Hemoglobin 13.3 g/dL (12.0-15.0); Lymphocyte # 1.73 X10^3/ul (4.0); Lymphocyte % 12.1 % (19-41); Mean Corp Hgb Conc 31.3 g/dL (32-36); Mean Corpuscular Hgb 31.5 pg (27.0-32.0); Mean Corpuscular Volume 100.7 fL (81-99); Mean Platelet Vol. 11.4 fl (6.2-12.0); Monocyte# 0.92 X10^3/uL; Monocyte% 6.4 % (0-10); NRBC Flagged by Analyzer 0 % (0-5); Neutrophil % 79.9 % (47-70); Platelet Count 233 K/mm3 (150-450); RBC Distribution Width CV 13.8 % (11.6-14.6); Red Blood Count 4.22 M/mm3 (4.2-5.4); White Blood Count 14.3 K/mm3 (4.4-11.0)
[2020-04-17 07:33] LABS: Anion Gap 5 (5-15); BUN 29 mg/dL (7-18); BUN/Creat Ratio 28.2 RATIO (10-20); Calcium,Total 10.6 mg/dL (8.5-10.1); Chloride 104 mmol/L (98-107); Creatinine, Serum 1.03 mg/dL (0.55-1.02); EST Glomerular Filtration Rate 54 mL/min (>60); Est Glom Filt Rate - Afr Amer 66 mL/min (>60); Glucose 135 mg/dL (74-106); Potassium 3.8 mmol/L (3.5-5.1); Sodium Level 140 mmol/L (136-145)
== END ==
LOC: OLS.WHLCAR 05:00
PROVIDERS: PCP Family Medicine; Referring Provider Family Medicine; Visit Provider Family Medicine
DX: G93.41 Metabolic encephalopathy (principal); D64.9 Anemia, unspecified; N17.9 Acute kidney failure, unspecified; N39.0 Urinary tract infection, site not specified; B96.20 Unspecified Escherichia coli [E. coli] as the cause of diseases classified elsewhere; F03.90 Unspecified dementia, unspecified severity, without behavioral disturbance, psychotic disturbance, mood disturbance, and anxiety
CPT/HCPCS: 36415; 80048; 85025

== ENCOUNTER → 2020-04-24 05:00 | Outpatient (REF) | payer MEDICARE, SELFPAY ==
[2019-12-14 19:56] VITALS: BMI 22.9
[2020-04-24 07:05] LABS: Basophil# 0.06 X10^3/uL; Basophil% 0.5 % (0-1); Eosinophil# 0.29 X10^3/uL; Eosinophils% 2.6 % (0-5); Hematocrit 41.6 % (37-47); Hemoglobin 13.4 g/dL (12.0-15.0); Lymphocyte % 16.2 % (19-41); Mean Corp Hgb Conc 32.2 g/dL (32-36); Mean Corpuscular Hgb 32.1 pg (27.0-32.0); Mean Corpuscular Volume 99.8 fL (81-99); Mean Platelet Vol. 11.4 fl (6.2-12.0); Monocyte# 0.95 X10^3/uL; Monocyte% 8.5 % (0-10); NRBC Flagged by Analyzer 0 % (0-5); Neutrophil # 7.98 X10^3/uL (2.7-7.7); Neutrophil % 71.7 % (47-70); Platelet Count 245 K/mm3 (150-450); RBC Distribution Width CV 13.4 % (11.6-14.6); RBC Distribution Width SD 49.8 fl (35.1-43.9); Red Blood Count 4.17 M/mm3 (4.2-5.4); White Blood Count 11.1 K/mm3 (4.4-11.0)
[2020-04-24 07:40] LABS: Anion Gap 6 (5-15); BUN 23 mg/dL (7-18); BUN/Creat Ratio 21.7 RATIO (10-20); Calcium,Total 10.8 mg/dL (8.5-10.1); Chloride 106 mmol/L (98-107); Creatinine, Serum 1.06 mg/dL (0.55-1.02); EST Glomerular Filtration Rate 52 mL/min (>60); Est Glom Filt Rate - Afr Amer 64 mL/min (>60); Glucose 121 mg/dL (74-106); Potassium 3.7 mmol/L (3.5-5.1); Sodium Level 140 mmol/L (136-145)
== END ==
LOC: OLS.WHLCAR 05:00
PROVIDERS: PCP Family Medicine; Visit Provider Family Medicine
DX: D64.9 Anemia, unspecified (principal); G93.41 Metabolic encephalopathy; N17.9 Acute kidney failure, unspecified; N39.0 Urinary tract infection, site not specified; B96.20 Unspecified Escherichia coli [E. coli] as the cause of diseases classified elsewhere; F03.90 Unspecified dementia, unspecified severity, without behavioral disturbance, psychotic disturbance, mood disturbance, and anxiety
CPT/HCPCS: 36415; 80048; 85025

== ENCOUNTER → 2020-05-01 05:00 | Outpatient (REF) | payer MEDICARE, SELFPAY ==
[2019-12-14 19:56] VITALS: BMI 22.9
[2020-05-01 06:59] LABS: Absolute Lymphocyte Count 2.32 X10^3/uL (0.83-4.51); Absolute Neutrophil Count 6.9 X10^3/uL (2.0-7.7); Basophil# 0.05 X10^3/uL; Basophil% 0.5 % (0-1); Eosinophil# 0.18 X10^3/uL; Eosinophils% 1.7 % (0-5); Hematocrit 41.1 % (37-47); Hemoglobin 13.1 g/dL (12.0-15.0); Lymphocyte # 2.32 X10^3/ul (4.0); Lymphocyte % 22.1 % (19-41); Mean Corp Hgb Conc 31.9 g/dL (32-36); Mean Corpuscular Hgb 31.3 pg (27.0-32.0); Mean Corpuscular Volume 98.3 fL (81-99); Mean Platelet Vol. 11.2 fl (6.2-12.0); Monocyte% 9.5 % (0-10); NRBC Flagged by Analyzer 0 % (0-5); Neutrophil # 6.91 X10^3/uL (2.7-7.7); Neutrophil % 65.7 % (47-70); Platelet Count 242 K/mm3 (150-450); RBC Distribution Width CV 13.3 % (11.6-14.6); RBC Distribution Width SD 48.4 fl (35.1-43.9); Red Blood Count 4.18 M/mm3 (4.2-5.4); White Blood Count 10.5 K/mm3 (4.4-11.0)
[2020-05-01 07:33] LABS: Anion Gap 4 (5-15); BUN 23 mg/dL (7-18); BUN/Creat Ratio 22.1 RATIO (10-20); Calcium,Total 10.7 mg/dL (8.5-10.1); Chloride 106 mmol/L (98-107); Creatinine, Serum 1.04 mg/dL (0.55-1.02); EST Glomerular Filtration Rate 54 mL/min (>60); Est Glom Filt Rate - Afr Amer 65 mL/min (>60); Glucose 125 mg/dL (74-106); Potassium 3.9 mmol/L (3.5-5.1); Sodium Level 139 mmol/L (136-145)
== END ==
LOC: OLS.WHLCAR 05:00
PROVIDERS: PCP Family Medicine; Visit Provider Family Medicine
DX: D64.9 Anemia, unspecified (principal); G93.41 Metabolic encephalopathy; N17.9 Acute kidney failure, unspecified; N39.0 Urinary tract infection, site not specified; B96.20 Unspecified Escherichia coli [E. coli] as the cause of diseases classified elsewhere
CPT/HCPCS: 36415; 80048; 85025

== ENCOUNTER → 2020-05-10 09:00 | Outpatient (REF) | payer MEDICARE, SELFPAY ==
[2019-12-14 19:56] VITALS: BMI 22.9
[2020-05-10 10:52] LABS: Hematocrit 43.4 % (37-47); Hemoglobin 13.9 g/dL (12.0-15.0); Mean Corpuscular Hgb 32.2 pg (27.0-32.0); Mean Corpuscular Volume 100.5 fL (81-99); Mean Platelet Vol. 11.3 fl (6.2-12.0); Platelet Count 240 K/mm3 (150-450); RBC Distribution Width CV 13.1 % (11.6-14.6); RBC Distribution Width SD 48.9 fl (35.1-43.9); Red Blood Count 4.32 M/mm3 (4.2-5.4); White Blood Count 12.2 K/mm3 (4.4-11.0)
[2020-05-10 11:17] LABS: Anion Gap 5 (5-15); BUN 24 mg/dL (7-18); BUN/Creat Ratio 20.3 RATIO (10-20); Calcium,Total 10.7 mg/dL (8.5-10.1); Chloride 102 mmol/L (98-107); Creatinine, Serum 1.18 mg/dL (0.55-1.02); EST Glomerular Filtration Rate 46 mL/min (>60); Est Glom Filt Rate - Afr Amer 56 mL/min (>60); Glucose 172 mg/dL (74-106); Potassium 3.8 mmol/L (3.5-5.1); Sodium Level 138 mmol/L (136-145)
== END ==
LOC: OLS.WHLTCC 09:00
PROVIDERS: PCP Family Medicine; Referring Provider Family Medicine; Visit Provider Family Medicine
DX: D64.9 Anemia, unspecified (principal); G93.41 Metabolic encephalopathy; N17.9 Acute kidney failure, unspecified; N39.0 Urinary tract infection, site not specified; B96.20 Unspecified Escherichia coli [E. coli] as the cause of diseases classified elsewhere; F03.90 Unspecified dementia, unspecified severity, without behavioral disturbance, psychotic disturbance, mood disturbance, and anxiety
CPT/HCPCS: 36415; 80048; 85027

== ENCOUNTER → 2020-08-07 05:00 | Outpatient (REF) | payer MEDICARE, SELFPAY ==
[2019-12-14 19:56] VITALS: BMI 22.9
[2020-08-07 08:47] LABS: Absolute Lymphocyte Count 2.43 X10^3/uL (0.83-4.51); Absolute Neutrophil Count 7.7 X10^3/uL (2.0-7.7); Basophil# 0.05 X10^3/uL; Basophil% 0.4 % (0-1); Eosinophil# 0.19 X10^3/uL; Eosinophils% 1.7 % (0-5); Hematocrit 40.3 % (37-47); Hemoglobin 13.2 g/dL (12.0-15.0); Lymphocyte # 2.43 X10^3/ul (4.0); Lymphocyte % 21.7 % (19-41); Mean Corp Hgb Conc 32.8 g/dL (32-36); Mean Corpuscular Hgb 32.6 pg (27.0-32.0); Mean Corpuscular Volume 99.5 fL (81-99); Mean Platelet Vol. 11.4 fl (6.2-12.0); Monocyte# 0.77 X10^3/uL; Monocyte% 6.9 % (0-10); NRBC Flagged by Analyzer 0 % (0-5); Neutrophil # 7.73 X10^3/uL (2.7-7.7); Neutrophil % 68.9 % (47-70); Platelet Count 222 K/mm3 (150-450); RBC Distribution Width SD 47.8 fl (35.1-43.9); Red Blood Count 4.05 M/mm3 (4.2-5.4); White Blood Count 11.2 K/mm3 (4.4-11.0)
[2020-08-07 08:59] LABS: Anion Gap 6 (5-15); BUN 32 mg/dL (7-18); BUN/Creat Ratio 27.8 RATIO (10-20); Calcium,Total 10.6 mg/dL (8.5-10.1); Chloride 104 mmol/L (98-107); Creatinine, Serum 1.15 mg/dL (0.55-1.02); EST Glomerular Filtration Rate 48 mL/min (>60); Est Glom Filt Rate - Afr Amer 58 mL/min (>60); Glucose 117 mg/dL (74-106); Potassium 4.2 mmol/L (3.5-5.1); Sodium Level 141 mmol/L (136-145)
[2020-08-07 09:11] LABS: Hemoglobin A1c 5.2 % (3.8-5.6)
== END ==
LOC: OLS.WHLCAR 05:00
PROVIDERS: PCP Family Medicine; Visit Provider Family Medicine
DX: E11.22 Type 2 diabetes mellitus with diabetic chronic kidney disease (principal); F03.90 Unspecified dementia, unspecified severity, without behavioral disturbance, psychotic disturbance, mood disturbance, and anxiety; C50.919 Malignant neoplasm of unspecified site of unspecified female breast; R13.12 Dysphagia, oropharyngeal phase; I50.32 Chronic diastolic (congestive) heart failure
CPT/HCPCS: 36415; 80048; 83036; 85025